=== PATIENT | male | born 1935 | race Caucasian/White ===

== ENCOUNTER 2018-07-19 15:03 | Observation (INO) | payer OTHER ==
[2018-07-19] MEDS ORDERED: ONDANSETRON 4 MG/2 ML VIAL ONE (15:39)
[2018-07-19] MEDS ORDERED: NA CHLORIDE 0.9% 1,000 ML ONE (15:39)
[2018-07-19] MEDS ORDERED: PANTOPRAZOLE 40 MG INJ ONE ×2 (15:39→17:42)
[2018-07-19 15:49] LABS: Absolute Lymphocytes (CBC) 1.3 K/uL (0.7-4.9); Absolute Monocytes 0.7 K/uL (0.1-1.3); Absolute Neutrophil 5.1 K/uL (1.8-8.0); Basophils % 0.4 % (0-1.3); Eosinophils % 0.6 % (0-4.4); Hematocrit 42.2 % (39.6-49.0); Lymphocytes % 18.8 % (15.3-44.8); Monocytes % 9.5 % (3.3-12.3); RBC Red Blood Cell Count 4.72 M/uL (4.33-5.43)
[2018-07-19 16:08] LABS: Protime INR 1.08
--- NOTE | 2018-07-19 16:24 | RAD REPORT ---
EXAM DESCRIPTION: RAD - Chest Single View - 07/19/2018 4:15 pm CLINICAL HISTORY: nausea/vomiting Chest pain. COMPARISON: CHEST SINGLE VIEW dated 03/27/2014; CHEST SINGLE VIEW dated 03/26/2014; CHEST SINGLE VIEW dated 12/27/2012; CHEST SINGLE VIEW dated 11/08/2012 FINDINGS: Portable technique limits examination quality. Mild emphysematous changes are present throughout the lungs. Increased lung markings are seen in the upper lobes bilaterally, likely representing mild interstitial pneumonitis. The heart is normal in si ze. Chronic blunting left costophrenic angle noted.
[2018-07-19 16:39] LABS: ALT/SGPT 15 U/L (12-78); AST/SGOT 17 U/L (15-37); Albumin 3.6 g/dL (3.4-5.0); Alkaline Phosphatase 75 U/L (45-117); BUN Blood Urea Nitrogen 25 mg/dL (7-18); Bicarbonate 39 mmol/L (21-32); Bilirubin Direct 0.3 mg/dL (0-0.2); Bilirubin Total 1.2 mg/dL (0.2-1.0); Glucose Level 113 mg/dL (74-106); Lipase 58 U/L (73-393); Magnesium 2.2 mg/dL (1.8-2.4); Potassium 3.6 mmol/L (3.5-5.1); Protein, Total 7.9 g/dL (6.4-8.2); Sodium Level 139 mmol/L (136-145); Troponin I < 0.02 ng/mL (0.0-0.045)
--- NOTE | 2018-07-19 16:48 | EKG ---
Test Date: 2018-07-19 Test Time: 15:39:11 Marketing Development Manager: ANUSHA MEASUREMENT RESULTS: Intervals: Rate: 63 MO: 164 QRSD: 162 QT: 500 QTc: 511 [place]: P: MO: 164 QRS: -84 T: 55 INTERPRETIVE STATEMENTS: Normal sinus rhythm Right bundle branch block Left anterior fascicular block Bifascicular block Abnormal ECG Compared to ECG 06/10/2013 10:00:02 No significant changes Electronically Signed On 07-19-18 16:48:08 [employer] by Scott Soriano
--- NOTE | 2018-07-19 16:56 | RAD REPORT ---
EXAM DESCRIPTION: CTAbdomen Pelvis W Contrast - 07/19/2018 4:44 pm CLINICAL HISTORY: Abdominal pain. NAUSEA / VOMITING COMPARISON: No comparisons TECHNIQUE: Biphasic CT imaging of the abdomen and pelvis was performed with 100 ml non-ionic IV cont rast. All CT scans are performed using dose optimization technique as appropriate and may include automated exposure control or mA/KV adjustment according to patient size. FINDINGS: Emphysematous changes are present in both lung bases.Postsurgical clips are present a agustin iesha esophageal junction with mild dilatation of the distal esophagus with asymmetric wall thickening noted. Mild distention and mucosal thickening of the stomach and duodenum is seen. The liver, spleen, pancreas, adrenal glands and kidneys are within normal limits. No bowel obstruction, free air, free fluid or abscess. Prominent sigmoid diverticulosis without diver ticulitis. The appendix is not identified as a discrete structure, however, no secondary findings of appendicitis are identified. Moderate stool is retained in the colon. No evidence of significant lym phadenopathy. Right hip arthroplasty noted. Moderate lumbosacral degenerative changes. Mild degenerative anterolist hesis of L4 on 5 seen. IMPRESSION: Postsurgical changes are seen in the gastroesophageal junction with distention of the di stal esophagus and asymmetric wall thickening. Upper endoscopy may be of value not recently performed . Mild gastroenteritis is possible. Prominent retained colonic stool is seen with diverticulosis coli present. No diverticulitis seen.
--- NOTE | 2018-07-19 17:25 | ER ---
Nurse's Notes [facility] Name: Bereket Kennedy Age: 83 yrs Sex: Male : 1935 Arrival Date: 07/19/2018 Time: 15:06 Bed 27 Private MD: Diagnosis: Nausea and vomiting;Dehydration;Gastrointestinal hemorrhage, unspecified Presentation: 07/19 15:09 Presenting complaint: Child states: he had abdominal pains last night after dinner and tw2 he has been vomiting since last night, Dr. Huerta clips some polyps in stomach maybe 8 or 9 years ago. Transition of care: patient was not received from another setting of care. Onset of symptoms was July 19, 2018. Risk Assessment: Do you want to hurt yourself or someone else? Patient reports no desire to harm self or others. Initial Sepsis Screen: Does the patient meet any 2 criteria? No. Patient's initial sepsis screen is negative. Does the patient have a suspected source of infection? No. Patient's initial sepsis screen is negative. Care prior to arrival: None. 15:09 Method Of Arrival: Wheelchair tw2 15:09 Acuity: CARMELINA 3 tw2 15:12 Presenting complaint: Child states: dark brown vomiting , coffee ground dark color and tw2 he has been feeling weak. Triage Assessment: 15:13 General: Appears slender, well groomed, Behavior is calm, cooperative, appropriate for tw2 age. GI: Reports nausea, vomiting, Patient currently denies bloody stool, constipation. Historical: - Allergies: 15:11 No Known Allergies; tw2 - Home Meds: 15:11 None [Active]; tw2 - PSHx: 15:11 esophageal sphincter repair; Joint replacement(2011); Knee surgery; tw2 - Immunization history:: Adult Immunizations. - Social history:: Smoking status: . - Ebola Screening: : Patient denies travel to an Ebola-affected area in the 21 days before illness onset. Screenin:41 Abuse screen: Denies threats or abuse. Denies injuries from another. Nutritional mg2 screening: No deficits noted. Tuberculosis screening: No symptoms or risk factors identified. Fall Risk IV access (20 points). Assessment: 15:40 General: Appears in no apparent distress. comfortable, Behavior is calm, cooperative. mg2 Pain: Complains of pain in abdomen Pain does not radiate. Pain currently is 2 out of 10 on a pain scale. Quality of pain is described as aching, Pain began gradually, Is intermittent. Neuro: Level of Consciousness is awake, alert, obeys commands, Oriented to person, place, time, situation. Cardiovascular: Capillary refill < 3 seconds Patient's skin is warm and dry. Respiratory: Airway is patent Respiratory effort is even, unlabored, Respiratory pattern is regular, symmetrical. GI: with hiccups Bowel sounds present X 4 quads. Abd is soft and non tender. : No signs and/or symptoms were reported regarding the genitourinary system. EENT: No signs and/or symptoms were reported regarding the EENT system. Derm: Skin is intact, is healthy with good turgor, Skin is pink, warm \T\ dry. normal. Musculoskeletal: No signs and/or symptoms reported regarding the musculoskeletal system. 18:00 Reassessment: patient relieved from hiccups. mg2 Vital Signs: 15:09 BP 124 / 86; Pulse 113; Resp 18; Temp 97.6(O); Pulse Ox 98% on R/A; Weight 61.69 kg tw2 (R); Height 5 ft. 9 in. (175.26 cm); Pain 2/10; 16:19 BP 114 / 65; Pulse 60; Resp 18; Pulse Ox 100% on R/A; Pain 0/10; mg2 17:30 BP 128 / 65; Pulse 60; Resp 18; Pulse Ox 100% on R/A; Pain 0/10; mg2 18:23 BP 147 / 65; Pulse 59; Resp 18; Temp 98(O); Pulse Ox 98% on R/A; Pain 0/10; mg2 15:09 Body Mass Index 20.08 (61.69 kg, 175.26 cm) tw2 ED Course: 15:06 Patient arrived in ED. mr 15:11 Triage completed. tw2 15:13 Arm band placed on. tw2 15:15 Sanju Virgen PA is PHCP. cp 15:15 Tigre Richardson MD is Attending Physician. cp 15:19 Vinay Pimentel, ITA is Primary Nurse. mg2 15:42 Patient has correct armband on for positive identification. mg2 15:42 No provider procedures requiring assistance completed. Inserted saline lock: 20 gauge mg2 in right antecubital area, using aseptic technique. Blood collected. 15:45 EKG done, by technical administrative assistant. reviewed by Sanju BASSETT. sm3 16:16 XRAY Chest (1 view) In Process Unspecified. EDMS 16:[address] via stretcher. vm2 16:46 CT Abd/Pelvis - W/Contrast: no oral contrast In Process Unspecified. EDMS 16:52 CT completed. Patient tolerated procedure well. Patient moved back from CT. 2 17:23 Ginny Batista MD is Hospitalizing Provider. cp 19:29 Patient admitted, IV remains in place. mg2 Administered Medications: 15:37 Drug: ProTONIX 40 mg Route: IVP; Site: right antecubital; mg2 16:18 Follow up: Response: No adverse reaction; Marked relief of symptoms mg2 15:37 Drug: Zofran 4 mg Route: IVP; Site: right antecubital; mg2 16:18 Follow up: Response: No adverse reaction; Vomiting decreased mg2 15:38 Drug: NS 0.9% 1000 ml Route: IV; Rate: 75 ml/hr; Site: right antecubital; mg2 19:24 Follow up: Response: No adverse reaction; IV Status: Infusion continued upon admission mg2 17:18 Drug: NS 0.9% 500 ml Route: IV; Rate: bolus; Site: right antecubital; mg2 19:24 Follow up: Response: No adverse reaction; IV Status: Completed infusion mg2 17:37 Drug: ProTONIX 8 mg/hr Route: IV; Rate: 25 ml/hr; Site: right antecubital; mg2 19:23 Follow up: Response: No adverse reaction; IV Status: Infusion continued upon admission mg2 Outcome: 17:24 Decision to Hospitalize by Provider. cp 19:29 Admitted to Med/surg accompanied by tech, via stretcher, room 215, with chart, Report mg2 called to ITA Cook 19:29 Condition: stable 19:29 Instructed on the need for admit, Demonstrated understanding of instructions. 19:46 Patient left the ED. mg2 Signatures: Dispatcher [employer] EDWY Arminda Brown Sanju Forrest PA PA cp Suad Fry, RN RN tw2 Rose Rios 2 Vinay Pimentel RN RN mg2 Marcia Gomez 3
--- NOTE | 2018-07-19 17:26 | EDPHYS ---
Physician Documentation [facility] Name: Bereket Kennedy Age: 83 yrs Sex: Male : 1935 Arrival Date: 07/19/2018 Time: 15:06 Bed 27 Private MD: ED Physician Tigre Richardson HPI: 07/19 15:22 This 83 yrs old Male presents to ER via Wheelchair with complaints of cp Abdominal Pain, Vomiting. 15:22 The patient presents with abdominal pain in the upper abdomen. Onset: The cp symptoms/episode began/occurred last night. Associated signs and symptoms: Pertinent positives: nausea and vomiting. 15:22 Severity of pain: in the emergency department the pain is unchanged. cp 15:25 Son reports vomitus has appeared "coffee ground". cp Historical: - Allergies: 15:11 No Known Allergies; tw2 - Home Meds: 15:11 None [Active]; tw2 - PSHx: 15:11 esophageal sphincter repair; Joint replacement(2011); Knee surgery; tw2 - Immunization history:: Adult Immunizations. - Social history:: Smoking status: . - Ebola Screening: : Patient denies travel to an Ebola-affected area in the 21 days before illness onset. ROS: 15:26 Eyes: Negative for injury, pain, redness, and discharge. cp 15:26 Constitutional: Positive for poor PO intake, Negative for body aches, chills, fever. 15:26 Cardiovascular: Negative for chest pain, edema, palpitations. cp 15:26 ENT: Negative for drainage from ear(s), ear pain, sore throat, difficulty swallowing, cp difficulty handling secretions. 15:26 Respiratory: Negative for cough, shortness of breath, wheezing. 15:26 Abdomen/GI: Positive for abdominal pain, nausea and vomiting, Negative for diarrhea, constipation, black/tarry stool, rectal bleeding. 15:26 Back: Negative for radiated pain. 15:26 : Negative for urinary symptoms. 15:26 Skin: Negative for cellulitis, rash. 15:26 Neuro: Negative for altered mental status, headache, weakness. 15:26 All other systems are negative. Exam: 15:30 Constitutional: The patient appears in no acute distress, alert, awake, cp non-diaphoretic, non-toxic, well developed, well nourished, uncomfortable. 15:30 Head/Face: Normocephalic, atraumatic. cp 15:30 Eyes: Periorbital structures: appear normal, Conjunctiva: normal, no exudate, no cp injection, Sclera: no appreciated abnormality, Lids and lashes: appear normal, bilaterally. 15:30 ENT: External ear(s): are unremarkable, Nose: is normal, Mouth: Lips: moist, Oral mucosa: moist, Posterior pharynx: is normal, airway is patent, no erythema, no exudate. 15:30 Chest/axilla: Inspection: normal, Palpation: is normal, no crepitus, no tenderness. 15:30 Cardiovascular: Rate: tachycardic, Rhythm: regular, Edema: is not appreciated, JVD: is not appreciated. 15:30 Respiratory: the patient does not display signs of respiratory distress, Respirations: labored breathing, is not present, shallow respirations, that is mild, Breath sounds: are clear throughout, no decreased breath sounds, no stridor, no wheezing. 15:30 Abdomen/GI: Inspection: abdomen appears normal, Bowel sounds: active, all quadrants, Palpation: soft, in all quadrants, moderate abdominal tenderness, in the epigastric area, right upper quadrant and left upper quadrant, rebound tenderness, is not appreciated, voluntary guarding. 15:30 Skin: cellulitis, is not appreciated, no rash present. 15:30 Neuro: Orientation: to person, place \\T\\ time. Mentation: is normal, Cerebellar function: is grossly normal, Motor: moves all fours, strength is normal, Sensation: is normal. 15:45 ECG was reviewed by the Attending Physician. cp Vital Signs: 15:09 BP 124 / 86; Pulse 113; Resp 18; Temp 97.6(O); Pulse Ox 98% on R/A; Weight 61.69 kg tw2 (R); Height 5 ft. 9 in. (175.26 cm); Pain 2/10; 16:19 BP 114 / 65; Pulse 60; Resp 18; Pulse Ox 100% on R/A; Pain 0/10; mg2 17:30 BP 128 / 65; Pulse 60; Resp 18; Pulse Ox 100% on R/A; Pain 0/10; mg2 18:23 BP 147 / 65; Pulse 59; Resp 18; Temp 98(O); Pulse Ox 98% on R/A; Pain 0/10; mg2 15:09 Body Mass Index 20.08 (61.69 kg, 175.26 cm) tw2 MDM: 15:16 Patient medically screened. cp 15:39 Differential diagnosis: acute coronary syndrome, bowel obstruction, cholecystitis, cp Cholelithiasis, diverticulitis, gastritis, gastroesophageal reflux disease, GI Bleed, pancreatitis, Peptic Ulcer Disease, Perf. Duodenal Ulcer, Perf. Gastric Ulcer. 17:05 Data reviewed: vital signs, nurses notes, lab test result(s), EKG, radiologic studies, cp CT scan, ultrasound. 17:05 Test interpretation: by ED physician or midlevel provider: ECG, plain radiologic cp studies. 17:15 Physician consultation: Ginny Batista MD was called at 17:10, was contacted at 17:10, regarding admission, to the telemetry unit. patient's condition. 07/19 15:20 Order name: Basic Metabolic Panel; Complete Time: 16:59 mg2 07/19 16:59 Interpretation: Normal except: CL 95; CO2 39; GLUC 113; BUN 25; GFR 67. cp 07/19 15:20 Order name: CBC with Diff; Complete Time: 16:16 mg2 07/19 15:20 Order name: Creatinine for Radiology; Complete Time: 16:16 mg2 07/19 15:20 Order name: Hepatic Function; Complete Time: 16:59 mg2 07/19 15:20 Order name: Lipase; Complete Time: 16:59 mg2 07/19 15:26 Order name: XRAY Chest (1 view); Complete Time: 16:59 cp 07/19 15:26 Order name: PT-INR; Complete Time: 16:16 cp 07/19 15:26 Order name: Ptt, Activated; Complete Time: 16:16 cp 07/19 16:17 Order name: CT Abd/Pelvis - W/Contrast: no oral contrast; Complete Time: 16:59 cp 07/19 16:23 Order name: Troponin I; Complete Time: 16:59 EDMS 07/19 16:23 Order name: Magnesium; Complete Time: 16:59 EDMS 07/19 15:20 Order name: IV Saline Lock; Complete Time: 15:39 mg2 07/19 15:20 Order name: Labs collected and sent; Complete Time: 15:39 mg2 07/19 15:26 Order name: EKG; Complete Time: 15:27 cp 07/19 15:26 Order name: EKG - Nurse/Tech; Complete Time: 16:18 cp 07/19 15:57 Order name: Labs - recollect needed: basic; Complete Time: 16:18 iw EC:45 Rate is 63 beats/min. Rhythm is regular. MA interval is normal. QRS interval is cp prolonged at 162 msec. QT interval is prolonged. Interpreted by me. Reviewed by me. Administered Medications: 15:37 Drug: ProTONIX 40 mg Route: IVP; Site: right antecubital; mg2 16:18 Follow up: Response: No adverse reaction; Marked relief of symptoms mg2 15:37 Drug: Zofran 4 mg Route: IVP; Site: right antecubital; mg2 16:18 Follow up: Response: No adverse reaction; Vomiting decreased mg2 15:38 Drug: NS 0.9% 1000 ml Route: IV; Rate: 75 ml/hr; Site: right antecubital; mg2 19:24 Follow up: Response: No adverse reaction; IV Status: Infusion continued upon admission mg2 17:18 Drug: NS 0.9% 500 ml Route: IV; Rate: bolus; Site: right antecubital; mg2 19:24 Follow up: Response: No adverse reaction; IV Status: Completed infusion mg2 17:37 Drug: ProTONIX 8 mg/hr Route: IV; Rate: 25 ml/hr; Site: right antecubital; mg2 19:23 Follow up: Response: No adverse reaction; IV Status: Infusion continued upon admission mg2 Disposition: 07/19/18 17:24 Hospitalization ordered by Ginny Batista for Observation. Preliminary diagnosis are Nausea and vomiting, Dehydration, Gastrointestinal hemorrhage, unspecified. - Bed requested for Telemetry/MedSurg (observation). - Status is Observation. mg2 - Condition is Stable. - Problem is new. - Symptoms have improved. UTI on Admission? No Addendum: 07/26/2018 08:55 Co-signature as Attending Physician, Tigre Richardson MD I agree with the assessment and k dr plan of care. Signatures: Dispatcher [employer] EDWA Tigre Richardson MD MD [facility] Susan Abarca RN RN iw Sanju Virgen, DANYELLE PA cp Suad Fry RN RN tw2 Ann Galicia Michele, RN RN mg2 Corrections: (The following items were deleted from the chart) 07/19 16:23 15:26 MAGNESIUM+C.LAB.BRZ ordered. EDMS EDMS 16:23 15:26 TROPONIN I+C.LAB.BRZ ordered. EDWA EDMS 18:17 17:24 Hospitalization Ordered by Ginny Batista MD for Observation. Preliminary diagnosis eb is Nausea and vomiting; Dehydration; Gastrointestinal hemorrhage, unspecified. Bed requested for Telemetry/MedSurg (observation). Status is Observation. Condition is Stable. Problem is new. Symptoms have improved. UTI on Admission? No. cp 19:46 18:17 07/19/2018 17:24 Hospitalization Ordered by Ginny Batista MD for Observation. mg2 Preliminary diagnosis is Nausea and vomiting; Dehydration; Gastrointestinal hemorrhage, unspecified. Bed requested for Telemetry/MedSurg (observation). Status is Observation. Condition is Stable. Problem is new. Symptoms have improved. UTI on Admission? No. eb
[2018-07-19] MEDS ORDERED: NA CHLORIDE 0.9% 250 ML ONE (17:42)
[2018-07-19] MEDS ORDERED: ACETAMINOPHEN 500 MG TAB PO PRN (19:42)
[2018-07-19] MEDS: PANTOPRAZOLE INJ 80 MG in NA CHLORIDE 0.9% 250 ML IV SCH (19:42)
[2018-07-19] MEDS ORDERED: NA CHLORIDE 0.9% 250 ML IV SCH (19:42)
[2018-07-19 20:05] LABS: Hematocrit 38.7 % (39.6-49.0)
[2018-07-19] MEDS: HYDROCORTISONE 1 % CREAM 30GM TOP SCH (21:00)
[2018-07-19] MEDS: D5 0.45 NS 1,000 ML IV SCH (22:07)
[2018-07-19 23:33] VITALS: BMI 19.6
[2018-07-20 00:30] LABS: Hematocrit 36.6 % (39.6-49.0)
[2018-07-20] MEDS ORDERED: MORPHINE 4 MG/ML SYR IV ONE (03:52)
[2018-07-20] MEDS: ONDANSETRON 4 MG/2 ML VIAL IV PRN ×3 (03:56→17:21)
[2018-07-20] MEDS: D5 0.45 NS 1,000 ML IV SCH ×3 (03:56→21:09)
[2018-07-20] MEDS ORDERED: PROMETHAZINE 25 MG/ML VIAL IV ONE (04:19)
[2018-07-20] MEDS: PANTOPRAZOLE INJ 80 MG in NA CHLORIDE 0.9% 250 ML IV SCH ×2 (04:27→15:29)
--- NOTE | 2018-07-20 04:32 | HP ---
Date of Admission: 07/19/2018 Chief Complaint: Nausea, vomiting, and coffee-ground emesis. Code status: Full Emergency Medicine: Corey Monroe M.D. with GI. History Of Present Illness: The patient is an 83-year-old male with a past medical history of gastroesophageal reflux disease, benign prostatic hyperplasia , who was in his usual state of health until the day prior to admission when the patient had sudden onset of nausea and vomiting. The patient had multiple episodes and did have some coffee-ground emesis as well. The patient denies any unusual foods. No travel outside the country. No recent antibiotic use. The patient denies any diarrhea, fever, or chills. The patient does have a history of achalasia and has had esophageal sphincter repair previously and does have episodes of nausea and vomiting from time to time. The patient's symptoms were constant, moderate, and progressively worsening. Therefore, he came in for further evaluation. In the ER, his workup showed normal WBC count. His CT scan of the abdomen and pelvis did show some mild gastroenteritis. The patient was started on PPI drip. His hemoglobin was stable at 14.3. The patient was then referred for admission. When seen in the ER, he was awake, alert, oriented, and in some mild distress. Past Medical History: 1. Gastroesophageal reflux disease. 2. Benign prostatic hyperplasia. Past Surgical History: 1. Camilo fundoplication. 2. Knee surgery. 3. Pneumothorax in 2012, which required a thoracotomy. Allergies: NO KNOWN DRUG ALLERGIES. Medications: The patient does not take any medications on a daily basis. Social History: Patient quit smoking in the 70s. No alcohol use. The patient is independent in his activities of daily living. He lives next door to his kids. He is , retired. Family History: Father of COPD and emphysema. Mother had heart problems. Review of Systems: An 11-point system reviewed, negative except as per HPI. Physical Examination: Vital Signs: Blood pressure 124/86, pulse 113, respirations 18, temperature 97.6, O2 98% on room air. General: Awake, alert, and oriented x3. Elderly male, somewhat ill-appearing, and frail. HEENT: Normocephalic, atraumatic. PERRLA. EOMI. Dry mucous membranes. Oropharynx is clear. Poor dentition. Conjunctivae anicteric. Neck: Supple. No JVD. Trachea midline. CV: S1, S2. Regular rate and rhythm. Peripheral pulses present. No murmurs. RESPIRATORY: Clear to auscultation bilaterally. No wheezing or stridor. No use of accessory muscles. Gastrointestinal: Abdomen is soft, nondistended. Mild tenderness to palpation. Bowel sounds are positive. No guarding or rigidity. Extremities: No clubbing, cyanosis, or edema. No calf tenderness. Neuro: Cranial nerves 2-12 intact grossly. No focal neurological deficit. Strength is 5/5 in bilateral upper and lower extremities. Sensation intact to light touch. Skin: The patient does have a rash on the dorsal aspect of his feet, not infectious appearing. Psych: Mood is good. Affect is full. Insight and judgment are good. Laboratory Data: WBC 7.1, H and H 14.3 and 42.2, and platelets 308. INR 1.08. Sodium 139, potassium 3.6, chloride 95, CO2 39, BUN 25, creatinine 1.06, glucose 113, calcium 8.9, magnesium 2.2, total bilirubin 1.2, direct bilirubin 0.3, AST 17, ALT 15, troponin less than 0.02, albumin 3.6, and lipase 58. CT scan of the abdomen and pelvis shows postsurgical changes are seen in the gastroesophageal junction with this distention of the distal esophagus and asymmetric wall thickening. Upper endoscopy may be of value, if not recently performed. Mild gastroenteritis is possible. Prominent retained colonic stool was seen with diverticulosis coli present. No diverticulitis seen. EKG shows normal sinus rhythm, rate of 63, right bundle branch block, left anterior fascicular block. The patient has a bifascicular block. Chest x-ray, personally reviewed, shows mild emphysematous changes, changes in the upper lobes bilaterally, likely representing interstitial pneumonitis. Heart, normal in size. Chronic blunting of the left costophrenic angle noted. Assessment And Plan: An 83-year-old male with, 1. Acute gastrointestinal bleed with hematemesis. We will continue with Protonix drip. We will monitor hemoglobin and hematocrit type and screen. We will consult SINAI Garcia. The patient is not on any blood thinners. Did have history of previous gastric ulcer. Continue to monitor closely. 2. Pneumonitis likely chemical pneumonitis related to aspirating part of his vomitus seen on x-ray, symptomatic treatment. 3. Rash, will apply hydrocortisone cream, unclear etiology. 4. Hyperbilirubinemia. 5. Bifasicular block Plan: Admit patient to Med-Surg. Place as observation. We will monitor H and H serially and transfuse as needed. GI and DVT prophylaxis addressed. No chemical anticoagulation due to gastrointestinal bleed. We will place on SCDs. Place patient on clear liquids for now. N.p.o. after midnight for possible endoscopy in a.m. STEPHON Voice ID: [id number] MTDD
[2018-07-20] MEDS ORDERED: PANTOPRAZOLE 40 MG INJ ONE (04:33)
[2018-07-20 04:47] LABS: Hematocrit 39.3 % (39.6-49.0)
[2018-07-20 04:57] LABS: Potassium 3.2 mmol/L (3.5-5.1)
[2018-07-20] MEDS ORDERED: INFLUENZA VACCINE (for 3y+) 0.5 ML DOSE IMVAC ONE (08:00)
[2018-07-20] MEDS ORDERED: PNEUMOCOCCAL VACCINE 0.5 ML IMVAC ONE (08:00)
[2018-07-20] MEDS: HYDROCORTISONE 1 % CREAM 30GM TOP SCH ×3 (08:26→21:14)
[2018-07-20] MEDS: KCL 20 MEQ/100 mL IVPB 20 MEQ/100 ML BAG IV SCH ×2 (09:44→11:59)
--- NOTE | 2018-07-20 12:11 | PN ---
Date of Progress Note: 07/20/2018 Subjective: The patient is seen and examined. Chart reviewed and case discussed with RN. The patie nt did have another episode of vomiting last night. Hemoglobin dropped slightly. Does report some p ain in his abdomen. Medications: List reviewed. Physical Examination: Vital Signs: Temperature 98, heart rate 46, blood pressure 159/64, respirations 18, and O2 of 100% o n room air. General: Awake, alert, and oriented x3, elderly male, ill-appearing, frail, cachectic, BMI 19. CV: S1 and S2. Sinus bradycardia. No murmurs. Peripheral pulses present. Respiratory: Moving air well bilaterally. No wheezing or stridor. Gastrointestinal: Abdomen is soft. Mild tenderness to palpation. No distention. Positive bowel so unds. Extremities: No clubbing, cyanosis, or edema. Neurologic: Nonfocal. Laboratory Data: Sodium 139, potassium 3.2, chloride 97, CO2 of 34, BUN 25, creatinine 1.02, glucose 101, and calcium 8.6. Hemoglobin 12.9, 12.4 and then 13.1. Assessment And Plan: An 83-year-old male with, 1.Acute gastrointestinal bleed with hematemesis. We will continue Protonix drip. Hemoglobin droppe d by 1 g. We will continue to monitor. Transfuse as needed. GI, Dr. Monroe has been consulted. We will check gastric occult. If the patient has any further emesis, the patient will likely benefit f rom EGD. 2.Pneumonitis, likely chemical pneumonitis related to aspiration. Continue symptomatic treatment. 3.Hyperbilirubinemia. 4.Rash on the feet. Continue with topical hydrocortisone cream. 5.Hypokalemia. We will replace and monitor. 6.Anemia, likely secondary to blood loss. 7.Failure to thrive. BMI 19. PLAN: Anticipate EGD. Monitor H and H, transfuse as needed. SA/MODL Voice ID: [id number] Report ID: [id number]
[2018-07-20] MEDS ORDERED: KCL 20 MEQ/100 mL IVPB 20 MEQ/100 ML BAG IV SCH (23:45)
[2018-07-21] MEDS: PANTOPRAZOLE INJ 80 MG in NA CHLORIDE 0.9% 250 ML IV SCH ×2 (00:26→11:13)
[2018-07-21] MEDS: D5 0.45 NS 1,000 ML IV SCH ×2 (05:13→11:42)
[2018-07-21 06:38] LABS: BUN Blood Urea Nitrogen 14 mg/dL (7-18); Bicarbonate 34 mmol/L (21-32); Glucose Level 93 mg/dL (74-106); Potassium 4.4 mmol/L (3.5-5.1); Sodium Level 141 mmol/L (136-145)
[2018-07-21] MEDS: HYDROCORTISONE 1 % CREAM 30GM TOP SCH ×2 (09:06→14:00)
[2018-07-21 12:22] LABS: Hematocrit 34.7 % (39.6-49.0)
[2018-07-21] MEDS ORDERED: Ringers Lactate 1,000 ML IV ONE (13:30)
[2018-07-21] MEDS ORDERED: LIDOCAINE 1% MPF 5 ML VIAL ONE (13:48)
[2018-07-21] MEDS ORDERED: PROPOFOL 200 MG/20 ML VIAL IV ONE (13:48)
[2018-07-21] MEDS ORDERED: GLYCOPYRROLATE 0.2 MG/ML SYR ONE ×2 (13:55→14:20)
[2018-07-21 14:14] VITALS: O2SAT 100
[2018-07-21] MEDS: ONDANSETRON 4 MG/2 ML VIAL IV PRN (17:45)
[2018-07-21 17:51] VITALS: TEMP 98.7
[2018-07-21] MEDS ORDERED: HYDRALAZINE HCL 20 MG/ML VIAL IV ONE (18:12)
[2018-07-21 19:31] VITALS: BP 138/62
--- NOTE | 2018-07-22 04:56 | DS ---
Date of Discharge: 07/21/2018 Procedures: On 07/21/2018, EGD. Postoperative Diagnoses: Esophagitis, mild gastritis of the body of the stomach. Admitting Diagnoses: 1.Acute gastrointestinal bleed with hematemesis. 2.Pneumonitis. 3.Rash. 4.Hyperbilirubinemia. 5.Bifascicular block. Discharge Diagnoses: 1.Acute gastrointestinal bleed due to hematemesis. 2.Acute blood loss anemia. 3.Pneumonitis, chemical. 4.Hyperbilirubinemia. 5.Rash, resolved. 6.Hypokalemia, replace. 7.Bifascicular block. 8.Failure to thrive, BMI 19. 9.Achalasia. 10.Esophagitis. 11.Mild gastritis. Hospital Course: The patient is an 83-year-old male who comes in with coffee-ground emesis. The pat ient was not on any blood thinners. He was admitted to the hospital for further evaluation. CT scan of the abdomen and pelvis showed some mild gastroenteritis. He was started on PPI drip. His hemogl obin initially was 14, did drop to 11. He did not require any transfusion. The patient does have hi story of achalasia with previous esophageal sphincter surgery with complications. The patient was se en by Dr. Monroe, who performed an EGD, which found esophagitis and some mild gastritis. The patient did have some food boluses stuck over the ledge around the site of the previous surgery. The patien t unfortunately is not a surgical candidate; however, may benefit from advanced endoscopic procedure in the [facility] area for revision. The patient was otherwise able to tolerate his diet. He is doing well. He did have some incidental pneumonitis secondary to aspirating part of the vomit us. No significant symptoms. Also reported a rash on his foot, which was treated with topical hydro cortisone cream. Overall, the patient did well. His vital signs remained stable. He did not requir e any blood transfusion. He did have some hypokalemia, which was corrected. The patient was then cl eared for discharge and was sent home in a stable condition. Activity: As tolerated. Medications: As per medication reconciliation list. Followup: Follow up with PCP in 2-3 days. Follow up with GI, Dr. Monroe in 2 weeks. Return to ER f or worsening condition. Physical Examination: General: Awake, alert, oriented, no acute distress. Elderly male, frail. CV: S1, S2. No murmurs. Regular rate and rhythm. Gastrointestinal: Abdomen is soft, nontender, nondistended. Positive bowel sounds. Extremities: No clubbing, cyanosis, or edema. Neurologic: Nonfocal. SA/MODL Voice ID: [id number] Report ID: [id number]
== END 2018-07-21 20:05 | disposition home or self-care (01) ==
LOC: ER 15:03 → ERHOLD 17:26 → 2ND 19:30
PROVIDERS: ADMIT Family Medicine; ATTEND Family Medicine
PROC: 0DB68ZX Excision of Stomach, Via Natural or Artificial Opening Endoscopic, Diagnostic (ICD-10-PCS; principal; 2018-07-21 13:30)
DX: K92.0 Hematemesis (principal); D62 Acute posthemorrhagic anemia; J68.0 Bronchitis and pneumonitis due to chemicals, gases, fumes and vapors; R21 Rash and other nonspecific skin eruption; E80.6 Other disorders of bilirubin metabolism; I45.2 Bifascicular block; N40.0 Benign prostatic hyperplasia without lower urinary tract symptoms; E87.6 Hypokalemia; R62.7 Adult failure to thrive; Z68.1 Body mass index [BMI] 19.9 or less, adult; K22.0 Achalasia of cardia; K20.9 Esophagitis, unspecified; K29.70 Gastritis, unspecified, without bleeding
CPT/HCPCS: 36415 ×2; 43239; 71045; 74177; 80048 ×3; 80076; 82271; 83690; 83735; 83986; 84132; 84484; 85014 ×4; 85018 ×4; 85025; 85610; 85730; 86850; 86900; 86901; 88305; 88312; 93005; 94760 ×4; 96361; 96365; 96366; 96375; 99285; C9113 ×4; G0378 ×2; J0360; J2405 ×5; J2550; J2704; J7030; Q9967

== ENCOUNTER 2023-05-31 05:19 | Observation (INO) | payer MEDICARE, OTHER ==
[2023-05-31] MEDS ORDERED: ONDANSETRON 4 MG/2 ML VIAL ONE ×2 (06:16→09:40)
[2023-05-31] MEDS ORDERED: NA CHLORIDE 0.9% 1,000 ML ONE ×2 (06:51→18:50)
[2023-05-31] MEDS ORDERED: MORPHINE 2 MG/ML SYR ONE (06:51)
[2023-05-31 06:52] LABS: Absolute Lymphocytes (CBC) 1.2 K/uL (0.7-4.9); Hematocrit 34.6 % (39.6-49.0); Lymphocytes % 28.2 % (15.3-44.8); MCV 93.3 fL (80-100); MPV 7.4 fL (7.6-11.3); Platelets 252 thou/uL (152-406); RBC Red Blood Cell Count 3.71 M/uL (4.33-5.43)
[2023-05-31] MEDS ORDERED: NA CHLORIDE 0.9% 500 ML ONE (06:52)
[2023-05-31 07:10] LABS: Albumin 2.8 g/dL (3.4-5.0); Bilirubin Total 0.5 mg/dL (0.2-1.0); C-Reactive Protein 3.1 mg/L (<3.00); Potassium 3.8 mEq/L (3.5-5.1); Protein, Total 7.5 g/dL (6.4-8.2); Troponin High Sensitivity 14.7 pg/mL (<58.9)
--- NOTE | 2023-05-31 07:56 | RAD REPORT ---
EXAM DESCRIPTION: CT - Chest Abdomen Pelvis W Cont - 05/31/2023 7:20 am CLINICAL HISTORY: CHEST PAIN, abdominal cramping nondistention COMPARISON: Abdomen Pelvis W Contrast dated 10/06/2022; Multiplanar Reconstruction dated 08/31/2018; Abdomen Pelvis W/Wo Contrast dated 08/31/2018; Chest Single View dated 07/19/2018; THORAX WO CONTRAST dated 12/27/2012 TECHNIQUE: Thin axial CT images of the chest, abdomen, and pelvis, performed following intravenous a dministration of 100mL Isovue-300. Multiplanar reformats were generated and reviewed. All CT scans are performed using dose optimization technique as appropriate and may include automated exposure control or mA/KV adjustment according to patient size. FINDINGS: Subpleural, apical predominant, reticular and nodular opacities are seen bilaterally, with mild ground-glass opacities and limited traction bronchiectasis noted in the left apex only. Mild burton bpleural non emphysematous cysts, without significant honeycombing otherwise. On the blue leather sorter image, the pattern is stable or perhaps mildly progressive compared to the 2019 chest radiograph, although the pattern is new in comparison to a prior chest CT of 2012. Patulous appearance of the esophagus with a ir-fluid level. No suspicious lung nodules.No pleural or pericardial effusion. Upper limit of normal caliber of the ascending thoracic aorta, measuring 4 cm. Sequelae of prior medi an sternotomy, and probable CABG.No intrathoracic adenopathy. The liver, spleen, pancreas, adrenal glands and kidneys are within normal limits. No bowel obstruction, free air, free fluid or abscess. Mild fluid filling within nondistended lower a bdominal small bowel, nonspecific. No bowel wall thickening. Trace free of situs, predominantly subhe patic. Colonic diverticulosis. 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 No pathologic lymphadenopathy in the abdo men or pelvis. No worrisome osseous finding. Healing/healed rib fractures. Grade 1 spondylolisthesis at L3-4, stable . Right hip arthroplasty in place resulting in streak artifact limiting evaluation of the pelvic stru ctures. Some prostatic calcifications are noted. IMPRESSION: Subpleural fibrotic interstitial lung abnormalities, new or significantly progressed sin ce the 2013 CT, although on the blue leather sorter images, the pattern may be stable or mildly progressed compared to the 2019 chest radiograph. Mild degree of traction bronchiectasis in the left apex. No appreciabl e honeycombing. Please correlate for presence of clinical signs/ symptoms of connective tissue diseas e, and consider pulmonology referral if not already obtained. Nonspecific fluid filling within nondistended lower abdominal small bowel. Mild predominantly subhepa tic ascites. Findings may relate to infectious/inflammatory enteritis. Other chronic findings as above.
--- NOTE | 2023-05-31 09:22 | EDPHYS ---
Physician Documentation [facility] Name: Bereket Kennedy Age: 88 yrs Sex: Male : 1935 Arrival Date: 05/31/2023 Time: 05:19 Bed 6 Private MD: ED Physician Mikey Thomas HPI: 05/31 05:28 This 88 yrs old Male presents to ER via Unassigned with complaints of sp4 Abdominal Pain. 06:13 88-year-old male presents with moderate upper abdominal pain starting yesterday sp4 afternoon associated with nausea. Patient has history of bowel obstruction. Historical: - Allergies: 06:27 No Known Allergies; ha1 - PMHx: 06:27 Hypertensive disorder; Myocardial infarction; ha1 - PSHx: 06:27 cardiac bypass; esophageal sx; ha1 - Immunization history:: Adult Immunizations not up to date. - Social history:: Smoking status: Patient/guardian denies using tobacco, the patient reports quitting approximately 1970 years ago. - Family history:: not pertinent. ROS: 06:13 Constitutional: Negative for fever, chills, and weight loss, positive upper abdominal sp4 pain positive nausea 06:13 All other systems are negative, Exam: 06:13 Constitutional: This is a well developed, well nourished patient who is awake, alert, sp4 and in no acute distress. Head/Face: Normocephalic, atraumatic. Eyes: Pupils equal round and reactive to light, extra-ocular motions intact. Lids and lashes normal. Conjunctiva and sclera are not injected. Cornea within normal limits. Periorbital areas with no swelling, redness, or edema. ENT: Nares patent. No nasal discharge, no septal abnormalities noted. Tympanic membranes are normal and external auditory canals are clear. Oropharynx with no redness, swelling, or masses, exudates, or evidence of obstruction, uvula midline. Mucous membranes moist. Neck: Trachea midline, no thyromegaly or masses palpated, and no cervical lymphadenopathy. Supple, full range of motion without nuchal rigidity, or vertebral point tenderness. Chest/axilla: Normal chest wall appearance and motion. Nontender with no deformity. No lesions are appreciated. Cardiovascular: Regular rate and rhythm with a normal S1 and S2. No gallops, murmurs, or rubs. Normal PMI, no JVD. No pulse deficits. Respiratory: Lungs have equal breath sounds bilaterally, clear to auscultation and percussion. No rales, rhonchi or wheezes noted. No increased work of breathing, no retractions or nasal flaring. Abdomen/GI: Soft, non-tender, with normal bowel sounds. No distension or tympany. No guarding or rebound. No evidence of tenderness throughout. Back: No spinal tenderness. No costovertebral tenderness. Skin: Warm, dry with normal turgor. Normal color with no rashes, no lesions, and no evidence of cellulitis. MS/ Extremity: Pulses equal, no cyanosis. Neurovascular intact. Full, normal range of motion. Neuro: Awake and alert, GCS 15, oriented to person, place, time, and situation. Cranial nerves II-XII grossly intact. Motor strength 5/5 in all extremities. Sensory grossly intact. Psych: Awake, alert, with orientation to person, place and time. Behavior, mood, and affect are within normal limits 07:02 ECG was reviewed by the Attending Physician. EKG revealed sinus bradycardia at the rate sp4 of 50 at 0:68 Vital Signs: 05:56 BP 179 / 72; Pulse 52; Resp 18 S; Temp 98.1; Pulse Ox 100% on R/A; Weight 57.61 kg; ha1 Height 5 ft. 9 in. ; 06:50 BP 156 / 82; Pulse 49; Resp 18 S; Pulse Ox 100% on R/A; rs5 09:30 BP 128 / 85; Pulse 53; Resp 17; Pulse Ox 99% on R/A; rs5 12:00 BP 130 / 82; Pulse 55; Resp 18; Pulse Ox 99% on R/A; rs5 05:56 Body Mass Index 18.75 (57.61 kg, 175.26 cm) ha1 [place] Coma Score: 07:02 Eye Response: spontaneous(4). Motor Response: obeys commands(6). Verbal Response: sp4 oriented(5). Total: 15. MDM: 05:32 Patient medically screened. sp4 07:02 Data reviewed: vital signs, nurses notes, old medical records, lab test result(s), EKG, sp4 radiologic studies. Consideration of Admission/Observation Escalation of care including admission/observation considered. Transition of care: After a detail discussion of the patient's case, care is transferred to Mikey Thomas MD. 09:20 Differential Diagnosis Enteritis, colitis, volvulus, small bowel obstruction. rn Counseling: I had a detailed discussion with the patient and/or guardian regarding the historical points, exam findings, and any diagnostic results supporting the discharge/admit diagnosis, lab results, radiology results, the need for further work-up and treatment in the hospital. Response to treatment: There is no appreciated change of the patient's symptoms at this time, and as a result, I will admit patient. ED course: Patient with persistent pain and nausea. CT shows more of an enteritis, no evidence of obstruction or volvulus at this time. Patient and daughter are concerned about going home and level of pain. Will observe to hospitalist service for further care and observation to make sure that this is not an early volvulus or obstruction. Patient does not have the vomiting I would expect with his possible enteritis and CT shows small bowel thickening and fluid.. 05/31 05:30 Order name: Urinalysis w/ reflexes sp4 05/31 06:12 Order name: Urinalysis W/Microscopic sp4 05/31 06:47 Order name: Comprehensive Metabolic Panel; Complete Time: 08:06 EDMS 05/31 06:47 Order name: Troponin High Sensitivity; Complete Time: 08:06 EDMS 05/31 06:47 Order name: C-Reactive Protein; Complete Time: 08:06 EDMS 05/31 06:47 Order name: Lipase; Complete Time: 08:06 EDMS 05/31 06:47 Order name: CBC with Automated Diff; Complete Time: 08:06 EDMS 05/31 06:48 Order name: COVID-19 SARS RT PCR; Complete Time: 08:06 vc1 05/31 06:48 Order name: Flu; Complete Time: 08:06 vc1 05/31 09:22 Order name: Lactate w/ 2H reflex if indic.; Complete Time: 11:06 rn 05/31 21:07 Order name: Troponin High Sensitivity EDMS 06/01 05:23 Order name: Lactate w/ 2H reflex if indic. EDMS 06/01 05:29 Order name: Comprehensive Metabolic Panel EDMS 06/01 05:29 Order name: Troponin High Sensitivity EDMS 06/01 05:29 Order name: Lipase EDMS 12/07 05:32 Order name: CBC with Automated Diff EDMS 05/31 06:11 Order name: CT Chest, Abdomen, Pelvis - W/Contrast; Complete Time: 08:06 sp4 05/31 06:06 Order name: EKG; Complete Time: 06:56 sp4 05/31 11:39 Order name: CONS Physician Consult EDIN 05/31 05:30 Order name: IV Saline Lock; Complete Time: 06:20 sp4 05/31 05:30 Order name: Labs collected and sent; Complete Time: 06:20 sp4 05/31 06:06 Order name: EKG - Nurse/Tech; Complete Time: 06:45 sp4 EC:02 Rate is 50 beats/min. Rhythm is regular, Sinus bradycardia. QRS [place] is Normal. NC sp4 interval is normal. QRS interval is prolonged. QT interval is normal. No Q waves. T waves are Normal. No ST changes noted. Clinical impression: No evidence of ischemia. Interpreted by me. Reviewed by me. Administered Medications: 06:20 Drug: Ondansetron IVP 4 mg IVP once; over 2 minutes Route: IVP; Site: right antecubital;[facility] 06:44 Drug: NS 0.9% IV 1000 ml IV at 75 ml/hr continuous Route: IV; Rate: 75 ml/hr; Site: ha1 right antecubital; 07:10 Follow up: Response: No adverse reaction rs5 06:45 Drug: morphine IVP or IV 2 mg IVP once over 4 mins Route: IVP; Infused Over: 4 mins; ha1 Site: right antecubital; 07:10 Follow up: Response: No adverse reaction; Pain is decreased rs5 06:45 Drug: NS 0.9% IV 500 ml IV at bolus once Route: IV; Rate: bolus; Site: right ha1 antecubital; 07:10 Follow up: Response: No adverse reaction rs5 09:25 Drug: morphine IVP or IV 4 mg IVP once over 4 mins Route: IVP; Infused Over: 4 mins; rs5 Site: right antecubital; 09:50 Follow up: Response: No adverse reaction; Pain is decreased rs5 09:25 Drug: Ondansetron IVP 4 mg IVP once; over 2 minutes Route: IVP; Site: right antecubital;rs5 09:50 Follow up: Response: No adverse reaction rs5 09:25 Drug: Piperacillin-Tazobactam IVPB 3.375 grams IVPB once over 60 mins; (mix in NS 100 rs5 mL) Route: IVPB; Infused Over: 60 mins; Site: right antecubital; 09:50 Follow up: Response: No adverse reaction rs5 Disposition Summary: 05/31/23 09:22 Hospitalization Ordered Notes: Hospitalization Status: Observation rn Provider: Espinoza Thomas rn Condition: Stable rn Problem: new rn Symptoms: are unchanged rn Bed/Room Type: Standard rn Location: [facility] ER HOLD(06/01/23 14:21) em1 Room Assignment: (06/01/23 14:21) em1 Diagnosis - Upper abdominal pain, unspecified rn - Infectious gastroenteritis and colitis, unspecified rn Forms: - Medication Reconciliation Form rn - SBAR form rn - Leadership Thank You Letter rn Signatures: Dispatcher [employer] EDMS Janneth Ponce Kimberly, RN RN kl Nieto, Roman, MD MD rn Martinez, Eric em1 Jocy Winchester RN RN ha1 Nila Castro rv1 Ortiz Adorno RN RN rs5 Dave Patterson MD MD sp4 Corrections: (The following items were deleted from the chart) 07:00 06:47 Chest Abdomen Pelvis W Cont ordered. EDMS EDMS 07:38 06:57 COVID-19/FLU A+B+MOL.LAB.BRZ ordered. EDMS EDMS 07:41 06:56 CBC+H.LAB.BRZ ordered. EDMS EDMS 07:42 06:56 COMPREHENSIVE METABOLIC PANEL+C.LAB.BRZ ordered. EDMS EDMS 07:42 06:56 LIPASE+C.LAB.BRZ ordered. EDMS EDMS 07:44 06:57 Troponin High Sensitivity+C.LAB.BRZ ordered. EDMS EDMS 07:44 06:57 C-REACTIVE PROTEIN+C.LAB.BRZ ordered. EDMS EDMS 10:51 09:46 Lactate w/ 2H reflex if indic. ordered. EDMS EDMS 16:16 09:22 Telemetry/MedSurg (observation) rn bd 16:16 09:22 rn bd 18:27 16:16 [facility] ER HOLD bd bd 18:27 16:16 ERHOLD- bd bd 19:08 18:27 214 bd rv1 19:43 18:27 Telemetry/MedSurg (observation) bd kl 19:43 19:08 rv1 kl 06/01 14:08 1206 19:43 [facility] kl em1 06/01 14:08 12 19:43 ERHOLD- kl em1 06/01 14:21 14:08 Telemetry/MedSurg (observation) em1 em1 14:21 14:08 401 em1 em1
--- NOTE | 2023-05-31 09:22 | ER ---
Nurse's Notes [facility] Name: Bereket Kennedy Age: 88 yrs Sex: Male : 1935 Arrival Date: 05/31/2023 Time: 05:19 Bed 6 Private MD: Diagnosis: Upper abdominal pain, unspecified;Infectious gastroenteritis and colitis, unspecified Presentation: 05/31 05:56 Chief complaint: Patient states: I been having abdominal cramping since yesterday it ha1 feels like a bowel obstruction. I had a bowel obstruction in September and I feel the same way. Coronavirus screen: Vaccine status: Patient reports being unvaccinated. Ebola Screen: No symptoms or risks identified at this time. 05:56 Method Of Arrival: Wheelchair ha1 05:56 Initial Sepsis Screen: Does the patient meet any 2 criteria? No. Patient's initial ha1 sepsis screen is negative. Does the patient have a suspected source of infection? No. Patient's initial sepsis screen is negative. Risk Assessment: Do you want to hurt yourself or someone else? Patient reports no desire to harm self or others. Onset of symptoms was May 31, 2023. 05:56 Acuity: CARMELINA 3 ha1 Triage Assessment: 05:56 General: Appears uncomfortable, Behavior is cooperative. Pain: Complains of pain in ha1 epigastric area Pain does not radiate. Pain currently is 7 out of 10 on a pain scale. Quality of pain is described as crampy, throbbing, Pain began 1 day ago. Neuro: Level of Consciousness is awake, alert, obeys commands, Oriented to person, place, time, situation. Cardiovascular: Capillary refill < 3 seconds Patient's skin is warm and dry. Respiratory: Airway is patent Respiratory effort is even, unlabored, Respiratory pattern is regular, symmetrical. GI: Abdomen is flat, non-distended, Bowel sounds present X 4 quads. Abd is soft X 4 quads Reports upper abdominal pain, cramping. Derm: Skin is pink, warm \T\ dry. Musculoskeletal: Circulation, motion, and sensation intact. Historical: - Allergies: 06:27 No Known Allergies; ha1 - PMHx: 06:27 Hypertensive disorder; Myocardial infarction; ha1 - PSHx: 06:27 cardiac bypass; esophageal sx; ha1 - Immunization history:: Adult Immunizations not up to date. - Social history:: Smoking status: Patient/guardian denies using tobacco, the patient reports quitting approximately 1970 years ago. - Family history:: not pertinent. Screenin:56 Abuse screen: Denies threats or abuse. Nutritional screening: No deficits noted. ha1 Tuberculosis screening: No symptoms or risk factors identified. 07:10 [facility] ED Fall Risk Assessment (Adult) History of falling in the last 3 months, rs5 including since admission No falls in past 3 months (0 pts) Confusion or Disorientation No (0 pts) Intoxicated or Sedated No (0 pts) Impaired Gait No (0 pts) Mobility Assist Device Used No (0 pt) Altered Elimination No (0 pt) Score/Fall Risk Level 0 - 2 = Low Risk Oriented to surroundings, Maintained a safe environment. Assessment: 06:50 Reassessment: Patient and/or family updated on plan of care and expected duration. Pain ha1 level reassessed. Patient is alert, oriented x 3, equal unlabored respirations, skin warm/dry/pink. 07:05 General: Appears in no apparent distress. comfortable, Behavior is calm, cooperative. rs5 Pain: Denies pain. Neuro: Level of Consciousness is awake, alert, obeys commands, Oriented to person, place, time, situation. Cardiovascular: Heart tones S1 S2 present Rhythm is regular. Respiratory: Airway is patent Respiratory effort is even, unlabored, Respiratory pattern is regular, symmetrical, Breath sounds are clear bilaterally. GI: Abdomen is round non-distended, Bowel sounds present X 4 quads. Abd is soft and non tender X 4 quads. GI: Patient currently denies nausea, pain, vomiting. : No signs and/or symptoms were reported regarding the genitourinary system. EENT: No signs and/or symptoms were reported regarding the EENT system. Derm: Skin is intact, Skin is pink, warm \T\ dry. Musculoskeletal: Range of motion: intact in all extremities. 08:10 Reassessment: No changes from previously documented assessment. rs5 09:15 Reassessment: Patient and/or family updated on plan of care and expected duration. Pain rs5 level reassessed. Patient is alert, oriented x 3, equal unlabored respirations, skin warm/dry/pink. Provider notified pt is reexperiencing pain. Pain: Complains of pain in abdomen generalized Pain does not radiate. Pain currently is 7 out of 10 on a pain scale. Quality of pain is described as aching, Pain began gradually, Is continuous. 09:15 GI: Patient currently denies nausea. rs5 09:56 Reassessment: Patient denies pain at this time. Patient states feeling better. Patient rs5 states symptoms have improved. 12:00 Reassessment: Patient and/or family updated on plan of care and expected duration. Pain rs5 level reassessed. Patient is alert, oriented x 3, equal unlabored respirations, skin warm/dry/pink. Vital Signs: 05:56 BP 179 / 72; Pulse 52; Resp 18 S; Temp 98.1; Pulse Ox 100% on R/A; Weight 57.61 kg; ha1 Height 5 ft. 9 in. ; 06:50 BP 156 / 82; Pulse 49; Resp 18 S; Pulse Ox 100% on R/A; rs5 09:30 BP 128 / 85; Pulse 53; Resp 17; Pulse Ox 99% on R/A; rs5 12:00 BP 130 / 82; Pulse 55; Resp 18; Pulse Ox 99% on R/A; rs5 05:56 Body Mass Index 18.75 (57.61 kg, 175.26 cm) ha1 [place] Coma Score: 07:02 Eye Response: spontaneous(4). Motor Response: obeys commands(6). Verbal Response: sp4 oriented(5). Total: 15. ED Course: 05:24 Patient arrived in ED. ag3 05:28 Dave Patterson MD is Attending Physician. sp4 05:56 Patient has correct armband on for positive identification. Placed in gown. Bed in low ha1 position. Call light in reach. Side rails up X 1. 06:15 Inserted saline lock: 22 gauge in right antecubital area, using aseptic technique. ha1 Blood collected. 06:27 Triage completed. ha1 06:50 Jocy Winchester RN is Primary Nurse. ha1 07:01 Attending Physician role handed off by Dave Patterson MD rn 07:01 Mikey Thomas MD is Attending Physician. rn 07:21 CT Chest, Abdomen, Pelvis - W/Contrast In Process Unspecified. EDMS 09:21 Espinoza Thomas MD is Hospitalizing Provider. rn 10:14 No provider procedures requiring assistance completed. Patient admitted, IV remains in rs5 place. Administered Medications: 06:20 Drug: Ondansetron IVP 4 mg IVP once; over 2 minutes Route: IVP; Site: right antecubital;ha1 06:44 Drug: NS 0.9% IV 1000 ml IV at 75 ml/hr continuous Route: IV; Rate: 75 ml/hr; Site: ha1 right antecubital; 07:10 Follow up: Response: No adverse reaction rs5 06:45 Drug: morphine IVP or IV 2 mg IVP once over 4 mins Route: IVP; Infused Over: 4 mins; ha1 Site: right antecubital; 07:10 Follow up: Response: No adverse reaction; Pain is decreased rs5 06:45 Drug: NS 0.9% IV 500 ml IV at bolus once Route: IV; Rate: bolus; Site: right ha1 antecubital; 07:10 Follow up: Response: No adverse reaction rs5 09:25 Drug: morphine IVP or IV 4 mg IVP once over 4 mins Route: IVP; Infused Over: 4 mins; rs5 Site: right antecubital; 09:50 Follow up: Response: No adverse reaction; Pain is decreased rs5 09:25 Drug: Ondansetron IVP 4 mg IVP once; over 2 minutes Route: IVP; Site: right antecubital;rs5 09:50 Follow up: Response: No adverse reaction rs5 09:25 Drug: Piperacillin-Tazobactam IVPB 3.375 grams IVPB once over 60 mins; (mix in NS 100 rs5 mL) Route: IVPB; Infused Over: 60 mins; Site: right antecubital; 09:50 Follow up: Response: No adverse reaction rs5 Medication: 06:30 VIS not applicable for this client. ha1 Outcome: 09:22 Decision to Hospitalize by Provider. rn 10:14 Admitted to ER Hold. Please see [facility] for further documentation. rs5 10:14 Condition: stable 10:14 Instructed on the need for admit, 06/01 14:45 Patient left the ED. mb9 Signatures: Dispatcher [employer] EDMS Mikey Thomas MD MD rn Gomez, Alice 3 Jocy Winchester RN RN 1 Arminda Garcia RN RN mb9 Ortiz Adorno RN RN rs5 Dave Patterson MD MD sp4 Corrections: (The following items were deleted from the chart) 12 10:51 10:13 Lactate w/ 2H reflex if indic. drawn and sent. rs5 EDMS 12:48 06:50 BP 156 / 62; Pulse 49bpm; Resp 18bpm; Spontaneous; Pulse Ox 100% RA; ha1 rs5
[2023-05-31] MEDS ORDERED: PIPERACIL/TAZO 3.375 GM VIAL IV ONE ×2 (09:40→18:50)
[2023-05-31] MEDS ORDERED: NA CHLORIDE 0.9% 100 ML ONE ×2 (09:40→18:49)
[2023-05-31] MEDS ORDERED: MORPHINE 4 MG/ML SYR ONE (09:40)
--- NOTE | 2023-05-31 11:49 | P.HP ---
Certification for Inpatient Patient admitted to: Observation With expected LOS: <2 Midnights Patient will require the following post-hospital care: None Practitioner: I am a practitioner with admitting privileges, knowledge of patient current condition, hospital course, and medical plan of care. Services: Services provided to patient in accordance with Admission requirements found in Title 42 Section 412.3 of the Code of Federal Regulations Patient History Date of Service: 05/31/23 Reason for admission: Intractable abdominal pain, enteritis History of Present Illness: 77-year-old male with history of achalasia, CAD with previous CABG, hypertension, hyperlipidemia, previous bowel obstructions/duodenal volvulus presents to the emergency department chief complaint of epigastric pain, nausea. His pain began yesterday about an hour and a half after eating chicken salad chick, he denies vomiting, diarrhea or significant constipation. He was evaluated in the emergency department his labs were significant for lactate of 0.6 white blood cell count 4.1 red blood cell count 3.7 hemoglobin 11.[address] chest abdomen pelvis showed nonspecific fluid filling within nondistended lower abdominal small bowel, mild predominantly subhepatic ascites. Findings may relate to infectious/inflammatory enteritis. Patient still with significant abdominal pain after IV medications, ED provider wishes to admit for intractable abdominal pain, enteritis. Allergies No Known Allergies Allergy (Verified 07/20/18 03:50) Home Medications: Pantoprazole [Protonix Tab*] 40 mg PO DAILY #30 tab 07/21/18 Ascorbic Acid [Vitamin C*] 500 mg PO DAILY 10/06/22 Aspirin Chewable [Aspirin Chewable*] 81 mg PO DAILY 10/06/22 Atorvastatin Calcium [Lipitor*] 10 mg PO BEDTIME 10/06/22 Clopidogrel Bisulfate [Plavix*] 75 mg PO BEDTIME 10/06/22 Cyanocobalamin [Vitamin B-12*] 1,000 mcg PO DAILY 10/06/22 Diphenhydramine HCl [Ez Nite Sleep] 25 mg PO BEDTIME 10/06/22 Docusate Sodium [Dulcolax Stool Softener] 100 mg PO BID 10/06/22 Ferrous Sulfate [Ferrous Sulfate*] 325 mg PO BID 10/06/22 Fexofenadine HCl [Rita Allergy] 180 mg PO DAILY 10/06/22 Lansoprazole 15 mg PO BID 10/06/22 Losartan Potassium 25 mg PO DAILY 10/06/22 Melatonin/Pyridoxine [Melatonin 5 mg Tablet] 10 each PO BEDTIME 10/06/22 Multivit,Ther Iron,Ca,FA & Min [Centrum Tablet*] 1 tab PO DAILY 10/06/22 Sucralfate [Carafate] 1 gm PO BID 10/06/22 Super Beta Prostate 1 tab PO BID 10/06/22 carvediloL [Carvedilol] 6.25 mg PO BID 10/06/22 - Past Medical/Surgical History Diabetic: No -: Achalasia -: CAD with previous CABG -: Hypertension -: Hyperlipidemia -: Bowel obstruction -: tonsils removed -: finger tendon repair -: total left knee replacement- 2000 -: left rotator cuff repair -: cataract sx- both eyes -: right hip replacement october 2012 -: esophagus sx -2012 Psychosocial/ Personal History: Patient lives at home, alone. - Family History Father -: Lung disease - Social History Alcohol use: No CD- Drugs: No Caffeine use: No Place of Residence: Home Review of Systems 10-point ROS is otherwise unremarkable Gastrointestinal: Nausea, Abdominal Pain Physical Examination - Physical Exam General: Alert, In no apparent distress, Oriented x3 HEENT: Atraumatic, PERRLA, Mucous membr. moist/pink, EOMI, Sclerae nonicteric Neck: Supple, 2+ carotid pulse no bruit, No LAD, Without JVD or thyroid abnormality Respiratory: Clear to auscultation bilaterally, Normal air movement Cardiovascular: Regular rate/rhythm, Normal S1 S2 Gastrointestinal: Normal bowel sounds, Tenderness (Mild epigastric tenderness) Musculoskeletal: No tenderness Integumentary: No rashes Neurological: Normal gait, Normal speech, Normal strength at 5/5 x4 extr, Normal tone, Normal affect Lymphatics: No axilla or inguinal lymphadenopathy - Studies Laboratory Data (last 24 hrs) 05/31/23 05/31/23 05/31/23 06:30 06:30 05:30 WBC 4.10 L Hgb 11.7 L Hct 34.6 L Plt Count 252 Sodium 135 L Cancelled Potassium 3.8 Cancelled BUN 29 H Cancelled Creatinine 0.76 Cancelled Glucose 99 Cancelled Total Bilirubin 0.5 Cancelled AST 11 L Cancelled ALT 11 L Cancelled Alkaline Phosphatase 68 Cancelled Lipase 48 Cancelled 05/31/23 05:30 WBC Cancelled Hgb Cancelled Hct Cancelled Plt Count Cancelled Sodium Potassium BUN Creatinine Glucose Total Bilirubin AST ALT Alkaline Phosphatase Lipase Microbiology Data (last 24 hrs): 05/31/23 06:54 Nasopharnyx Influenza Type A Antigen Screen - Final 05/31/23 06:54 Nasopharnyx Influenza Type B Antigen Screen - Final Assessment and Plan - Plan Assessment: Intractable abdominal pain Infectious/inflammatory enteritis History of bowel obstruction/volvulus History of achalasia CAD with history of CABG Hypertension Hyperlipidemia 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 Given copy of CT results recommend follow-up with pulmonology on outpatient basis no active symptoms DVT PPX: Lovenox Code status: Full Discharge Plan: Home Plan to discharge in: 48 Hours - Advance Directives Does patient have a Living Will: No Does patient have a Durable POA for Healthcare: No - Code Status/Comfort Care Code Status Assessed: Yes (Full code) Critical Care: No Time Spent Managing Pts Care (In Minutes): 70
[2023-05-31 12:26] LABS: Specific Gravity > 1.030 (1.005-1.030); Urine Bacteria None Seen /HPF (<20); Urine Bilirubin NEGATIVE (Negative); Urine Blood Negative (Negative); Urine Clarity Clear (Clear); Urine Color Colorless (Yellow); Urine Glucose NEGATIVE (Negative); Urine Protein NEGATIVE (Negative); Urine RBC <5 /HPF (None Seen); Urine Urobilinogen Normal (Normal)
[2023-05-31] MEDS: NA CHLORIDE 0.9% 1,000 ML IV SCH (12:47)
[2023-05-31] MEDS ORDERED: MORPHINE 2 MG/ML SYR IV PRN (12:47)
[2023-05-31] MEDS ORDERED: ONDANSETRON 4 MG/2 ML VIAL IV PRN (12:47)
[2023-05-31 12:56] VITALS: BMI 19.2
[2023-05-31] MEDS: PIPER TAZO 3.375 GM in NA CHLORIDE 0.9% 100 ML IV SCH (17:00)
[2023-06-01 05:28] LABS: AST/SGOT 12 U/L (15-37); Albumin 2.5 g/dL (3.4-5.0); Alkaline Phosphatase 63 U/L (45-117); BUN Blood Urea Nitrogen 14 mg/dL (7-18); Bicarbonate 27 mEq/L (21-32); Bilirubin Total 0.7 mg/dL (0.2-1.0); Glomerular Filtration Rate 90 ml/min (=/>90); Glucose Level 84 mg/dL (74-106); Lipase 8 U/L (13-75); Protein, Total 6.7 g/dL (6.4-8.2); Sodium Level 138 mEq/L (136-145); Troponin High Sensitivity 17.2 pg/mL (<58.9)
[2023-06-01 05:29] LABS: ALT/SGPT < 10 U/L (16-61)
[2023-06-01 05:31] LABS: Absolute Lymphocytes (CBC) 1.1 K/uL (0.7-4.9); Hematocrit 39.8 % (39.6-49.0); MCV 93.1 fL (80-100); MPV 7.5 fL (7.6-11.3); Platelets 177 thou/uL (152-406); RBC Red Blood Cell Count 4.27 M/uL (4.33-5.43)
[2023-06-01] MEDS: PIPER TAZO 3.375 GM in NA CHLORIDE 0.9% 100 ML IV SCH ×2 (07:20→09:00)
[2023-06-01] MEDS ORDERED: PIPERACIL/TAZO 3.375 GM VIAL IV ONE (07:33)
[2023-06-01] MEDS ORDERED: NA CHLORIDE 0.9% 100 ML ONE (07:33)
[2023-06-01] MEDS ORDERED: ENOXAPARIN 40 MG/0.4 ML SQ SCH (09:00)
--- NOTE | 2023-06-01 09:48 | P.PN ---
Date of Service: 06/01/23 Subjective: Pain much improved overnight Currently 1 out of 10, denies nausea/vomiting or diarrhea ROS: 10 point ROS as noted above, otherwise negative Physical exam GEN: Alert, oriented, NAD HEENT: Normal conjunctiva, sclera anicteric CV: Regular rate and rhythm, no edema Pulm: Nonlabored respirations on room air ABD: Soft, nontender, nondistended MSK: No joint tenderness Integumentary: No rashes Neuro: Normal speech, normal affect Vitals reviewed Problem List Intractable abdominal pain Infectious/inflammatory enteritis History of bowel obstruction/volvulus History of achalasia CAD with history of CABG Bradycardia Hypertension Hyperlipidemia 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 Radiology comments that this is likely similar to 2019 and their is opacification of the celiac artery distal to the area of stenosis Lactate 0.6 repeat lactate 0.6 today, Continue empiric antibioticsZosyn, as needed pain medications 10/16 had duodenal volvulus resolved with EGD Appreciate further input from general surgery Continue antibiotics, as needed pain medications CAD with history of CABG Bradycardia Sinus bradycardia noted, patient reports longstanding chronic bradycardia, it is noted that he takes carvedilol at home, discussed holding carvedilol with sherry fregoso and follow-up with cardiology outpatient Hypertension Hyperlipidemia Continue home medications 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 Given copy of CT results recommend follow-up with pulmonology on outpatient basis no active symptoms VTE: Lovenox Code: Full Dispo: 24 hours Time Spent Managing Pts Care (In Minutes): 35
[2023-06-01] MEDS: NA CHLORIDE 0.9% 1,000 ML IV SCH (09:57)
[2023-06-01] MEDS ORDERED: NA CHLORIDE 0.9% 1,000 ML ONE (10:06)
[2023-06-01] MEDS ORDERED: ENOXAPARIN 40 MG/0.4 ML SQ ONE (10:07)
[2023-06-01] MEDS ORDERED: INFLUENZA VACCINE (for 6+ mo) 0.5 ML DOSE IMVAC ONE (12:00)
[2023-06-01] MEDS ORDERED: PNEUMOCOCCAL VACCINE 0.5 ML IMVAC ONE (12:00)
[2023-06-01 12:28] VITALS: BP 157/69; TEMP 98.1
--- NOTE | 2023-06-01 14:36 | P.DS ---
Admission Date: 05/31/23 Discharge Date: 06/01/23 Disposition: ROUTINE DISCHARGE Discharge Condition: GOOD Reason for Admission: Intractable abdominal pain, enteritis Consultations: General surgery-Dr. Posadas Brief History of Present Illness: 77-year-old male with history of achalasia, CAD with previous CABG, hypertension, hyperlipidemia, previous bowel obstructions/duodenal volvulus presents to the emergency department chief complaint of epigastric pain, nausea. His pain began yesterday about an hour and a half after eating chicken salad chick, he denies vomiting, diarrhea or significant constipation. He was evaluated in the emergency department his labs were significant for lactate of 0.6 white blood cell count 4.1 red blood cell count 3.7 hemoglobin 11.[address] chest abdomen pelvis showed nonspecific fluid filling within nondistended lower abdominal small bowel, mild predominantly subhepatic ascites. Findings may relate to infectious/inflammatory enteritis. Patient still with significant abdominal pain after IV medications, ED provider wishes to admit for intractable abdominal pain, enteritis. 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 There is no leukocytosis, CT of the chest abdomen pelvis showed nonspecific fluid filling within nondistended lower abdominal small bowel. Mild predominantly subhepatic ascites. Findings may relate to infectious/inflammatory enteritis. Additionally advanced atherosclerotic changes with tortuosity of the abdominal aorta with up to severe stenosis at the celiac axis origi was noted, this was discussed further with radiology and has been present since 2019, there is opacification of the sciatic artery distal to the area of stenosis as well. Lactate was normal x 2 patient's pain improved significantly overnight and he was evaluated by general surgery. He is stable for discharge at this time. During hospitalization he received IV Zosyn, he will be discharged with a prescription for Augmentin and instructed follow-up with his PCP, GI, general surgery. CT also showed subpleural fibrotic interstitial lung abnormalities new or significant progress since 2013 CT. this was discussed with patient, him and his family were provided with copy of the results and is recommended he follow-up with pulmonology on an outpatient basis. No Shortness of breath or other respiratory symptoms noted during hospitalization. Of note patient was also bradycardic during his hospital stay with rate in the mid 40s, he reports that his heart rate typically runs in the 40s. Carvedilol is on his home medications although he reports he is not very good about taking his medications, he was counseled to discontinue use of carvedilol for the time being until he follows up with his primary care doctor. Vital Signs/Physical Exam: Temp Pulse Resp BP Pulse Ox 98.1 F 56 16 157/69 H 96 06/01/23 12:00 06/01/23 12:00 06/01/23 12:00 06/01/23 12:00 06/01/23 12:00 General: Alert, In no apparent distress, Oriented x3 HEENT: Atraumatic, PERRLA, EOMI Neck: Supple, JVD not distended Respiratory: Clear to auscultation bilaterally, Normal air movement Cardiovascular: Regular rate/rhythm, Normal S1 S2 Gastrointestinal: Normal bowel sounds, No tenderness Musculoskeletal: No tenderness Integumentary: No rashes Neurological: Normal tone, Normal affect Laboratory Data at Discharge: WBC 3.70 thou/uL (4.3-10.9) L 06/01/23 04:52 Hgb 13.3 g/dL (13.6-17.9) L D 06/01/23 04:52 Hct 39.8 % (39.6-49.0) 06/01/23 04:52 Plt Count 177 thou/uL (152-406) D 06/01/23 04:52 Sodium 138 mEq/L (136-145) 06/01/23 04:52 Potassium 4.0 mEq/L (3.5-5.1) 06/01/23 04:52 BUN 14 mg/dL (7-18) 06/01/23 04:52 Creatinine 0.69 mg/dL (0.70-1.30) L 06/01/23 04:52 Glucose 84 mg/dL (74-106) 06/01/23 04:52 Total Bilirubin 0.7 mg/dL (0.2-1.0) 06/01/23 04:52 AST 12 U/L (15-37) L 06/01/23 04:52 ALT < 10 U/L (16-61) L 06/01/23 04:52 Alkaline Phosphatase 63 U/L (45-117) 06/01/23 04:52 Lipase 8 U/L (13-75) L 06/01/23 04:52 Home Medications: Pantoprazole [Protonix Tab*] 40 mg PO DAILY #30 tab 07/21/18 Ascorbic Acid [Vitamin C*] 500 mg PO DAILY 10/06/22 Aspirin Chewable [Aspirin Chewable*] 81 mg PO DAILY 10/06/22 Atorvastatin Calcium [Lipitor*] 10 mg PO BEDTIME 10/06/22 Clopidogrel Bisulfate [Plavix*] 75 mg PO BEDTIME 10/06/22 Cyanocobalamin [Vitamin B-12*] 1,000 mcg PO DAILY 10/06/22 Diphenhydramine HCl [Ez Nite Sleep] 25 mg PO BEDTIME 10/06/22 Docusate Sodium [Dulcolax Stool Softener] 100 mg PO BID 10/06/22 Ferrous Sulfate [Ferrous Sulfate*] 325 mg PO BID 10/06/22 Fexofenadine HCl [Rita Allergy] 180 mg PO DAILY 10/06/22 Lansoprazole 15 mg PO BID 10/06/22 Losartan Potassium 25 mg PO DAILY 10/06/22 Melatonin/Pyridoxine [Melatonin 5 mg Tablet] 10 each PO BEDTIME 10/06/22 Multivit,Ther Iron,Ca,FA & Min [Centrum Tablet*] 1 tab PO DAILY 10/06/22 Sucralfate [Carafate] 1 gm PO BID 10/06/22 Super Beta Prostate 1 tab PO BID 10/06/22 Amox/Clavulanate [Augmentin 875-125 Tab] 875 mg PO BID 7 Days #14 tab 06/01/23 New Medications: Amox/Clavulanate [Augmentin 875-125 Tab] 875 mg PO BID 7 Days #14 tab Physician Discharge Instructions: Patient presented to the hospital chief complaint of epigastric abdominal pain. There has been no leukocytosis, CT of the chest abdomen pelvis showed nonspecific fluid filling within nondistended lower abdominal small bowel. Mild predominantly subhepatic ascites. Findings may relate to infectious/inflammatory enteritis. 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 Lactate was normal x 2 patient's pain improved significantly overnight and he was evaluated by general surgery. He tolerated clear liquids this morning and a soft diet for lunch with no further pain, is ambulatory with no other complaints. He is stable for discharge at this time. During hospitalization he received IV Zosyn, he will be discharged with a prescription for Augmentin and instructed follow-up with his PCP, GI, general surgery. CT also showed subpleural fibrotic interstitial lung abnormalities new or significant progress since 2012 CT. this was discussed with patient, him and his family were provided with copy of the results and is recommended he follow-up with pulmonology on an outpatient basis. No Shortness of breath or other respiratory symptoms noted during hospitalization. Of note patient was also bradycardic during his hospital stay with rate in the mid 40s, he reports that his heart rate typically runs in the 40s. Carvedilol is on his home medications although he reports he is not very good about taking his medications, he was counseled to discontinue use of carvedilol for the time being until he follows up with his primary care doctor. Diet: [place] Activity: Fall precautions Followup: Maikel Posadas MD [ACTIVE - CAN ADMIT] - 1-2 Weeks Radha Adams MD [Primary Care Provider] - 1 Week Prince Giraldo MD [OUTSIDE PHYSICIAN] - 1 Week Time spent managing pt's care (in minutes): 35
[2023-06-01 15:20] VITALS: O2SAT 99
[2023-06-01] MEDS ORDERED: PIPER TAZO 3.375 GM in NA CHLORIDE 0.9% 100 ML IV SCH (16:00)
== END 2023-06-01 14:45 | disposition home or self-care (01) ==
LOC: ER 05:19 → ERHOLD 11:40 → EEVIPCON 11:40
PROVIDERS: ADMIT Hospitalist; ATTEND Hospitalist
DX: A09 Infectious gastroenteritis and colitis, unspecified (principal); I25.10 Atherosclerotic heart disease of native coronary artery without angina pectoris; I10 Essential (primary) hypertension; E78.5 Hyperlipidemia, unspecified; R00.1 Bradycardia, unspecified; R91.8 Other nonspecific abnormal finding of lung field; K22.0 Achalasia of cardia; R18.8 Other ascites; Z11.52 Encounter for screening for COVID-19; Z95.1 Presence of aortocoronary bypass graft
CPT/HCPCS: 93005; 85025 ×2; 81001; 36415; 83605 ×2; 84484 ×3; 83690 ×2; 80053 ×2; 87635; 86140; 87804 ×2; 71260; 74177; 96375; 96374; 99285; Q9967; J2543 ×3; J2270; J2405 ×2; J7040; J7030 ×3; G0378 ×3; J1650

== ENCOUNTER 2023-08-30 17:05 | Inpatient (IN) | payer MEDICARE ==
[2023-08-30] MEDS ORDERED: ONDANSETRON 4 MG/2 ML VIAL ONE (17:21)
[2023-08-30] MEDS ORDERED: NA CHLORIDE 0.9% 500 ML ONE (17:21)
[2023-08-30 17:32] LABS: Absolute Monocytes 0.5 K/uL (0.1-1.3); Absolute Neutrophil 5.2 K/uL (1.8-8.0); Basophils % 0.2 % (0-1.3); Eosinophils % 0.4 % (0-4.4); Hemoglobin 11.6 g/dL (13.6-17.9); Lymphocytes % 14.8 % (15.3-44.8); MCHC 35.2 g/dL (32.0-36.0); MCV 91.1 fL (80-100); MPV 6.9 fL (7.6-11.3); Monocytes % 7.1 % (3.3-12.3); Neutrophils % 77.5 % (41.7-73.7); Platelets 254 thou/uL (152-406); RBC Red Blood Cell Count 3.62 M/uL (4.33-5.43); Red Cell Distribution Width 14.8 % (12.1-15.2)
[2023-08-30 17:34] LABS: PT Prothrombin Time 10.7 SECONDS (9.5-12.5); PTT, Activated Partial Thromb 18.7 SECONDS (24.3-36.9); Protime INR 0.97
[2023-08-30 17:54] LABS: Albumin 2.8 g/dL (3.4-5.0); Albumin/Globulin Ratio 0.9 (1.1-1.8); Anion Gap 9.3 mEq/L (5.0-15.0); Bilirubin Total 0.5 mg/dL (0.2-1.0); Globulin 3.2 g/dL (2.3-3.5); Potassium 5.3 mEq/L (3.5-5.1)
--- NOTE | 2023-08-30 19:26 | RAD REPORT ---
EXAM DESCRIPTION: CT - Abdomen Pelvis W Contrast - 08/30/2023 7:10 pm CLINICAL HISTORY: Abdominal pain COMPARISON: 2022 TECHNIQUE: Computed axial tomography of the abdomen pelvis was obtained. 18 cc [id number]-300 was admini stered intravenously. Oral contrast was not requested which limits evaluation of bowel and appendix All CT scans are performed using dose optimization technique as appropriate and may include automated exposure control or mA/KV adjustment according to patient size. FINDINGS: Postsurgical changes GE junction. Dilatation distal esophagus. Wall of the GE junction jessica ears thickened. The stomach is mildly dilated. The liver, spleen, pancreas, adrenal and kidneys appear unremarkable. There is no evidence of diverticulitis. Hysterectomy. No adnexal mass is seen. Mild chronic anterior subluxation L4 on L5 IMPRESSION: Mild dilatation distal esophagus. The wall of the GE junction appears thickened which ma y indicate inflammation. Mild gastric dilatation
--- NOTE | 2023-08-30 19:26 | RAD REPORT ---
EXAM DESCRIPTION: Joselyn Single View08/30/2023 5:37 pm CLINICAL HISTORY: Cough COMPARISON: July 2023 FINDINGS: Bilateral upper lobe scarring unchanged. The lungs appear clear of acute infiltrate. The heart is normal size. Postsurgical changes involve th e chest IMPRESSION: No acute abnormalities displayed
[2023-08-30] MEDS ORDERED: CEFTRIAXONE 1000 MG/VIAL ONE (19:44)
[2023-08-30] MEDS ORDERED: CLINDAMYCIN 600MG/D5W 50 ML IV ONE (19:44)
[2023-08-30] MEDS ORDERED: WATER FOR INJ,STERILE 10 ML ONE (19:45)
--- NOTE | 2023-08-30 19:59 | EDPHYS ---
Physician Documentation [facility] Name: Bereket Kennedy Age: 88 yrs Sex: Male : 1935 Arrival Date: 08/30/2023 Time: 17:05 Bed 8 Private MD: ED Physician Mikey Thomas HPI: 08/29 18:34 This 88 yrs old Male presents to ER via EMS with complaints of generalized weakness,sob.rn 18:34 Onset: The symptoms/episode began/occurred just prior to arrival. The patient has not rn experienced similar symptoms in the past. 18:34 Patient reports generalized weakness and shortness of breath. Recent admission for rn pneumonia. Patient states still feeling ill and short of breath. No chest pain.. Severity of symptoms: At their worst the symptoms were moderate in the emergency department the symptoms are unchanged. The patient has been recently been admitted at [facility]. Historical: - Allergies: 18:11 No Known Allergies; ko1 - PMHx: 18:11 Cardiomegly; Fluid on left [place]; Hypertensive disorder; Myocardial infarction; ko1 - PSHx: 18:11 cardiac bypass; esophageal sx; ko1 - Immunization history:: Adult Immunizations unknown. - Social history:: Smoking status: Patient denies any tobacco usage or history of. - Family history:: not pertinent. - Hospitalizations: : The patient was recently seen at [facility]. ROS: 18:34 Constitutional: Negative for fever, chills, and weight loss, Eyes: Negative for injury, rn pain, redness, and discharge, Neck: Negative for injury, pain, and swelling, Cardiovascular: Negative for chest pain, palpitations, and edema, Respiratory: Positive for cough and shortness of breath Abdomen/GI: Negative for abdominal pain, nausea, vomiting, diarrhea, and constipation, MS/Extremity: Negative for injury and deformity, Skin: Negative for injury, rash, and discoloration, Neuro: Positive for generalized weakness and malaise Exam: 18:34 Constitutional: This is a well developed, well nourished patient who is awake, alert, rn and in no acute distress. Head/Face: Normocephalic, atraumatic. ENT: Dry mucous membranes, no stridor Cardiovascular: Regular rate and rhythm. No pulse deficits. Respiratory: Mild tachypnea, no retractions Abdomen/GI: Soft, non-tender MS/ Extremity: Pulses equal, no cyanosis. Neurovascular intact. Full, normal range of motion. Equal circumference. Neuro: Awake and alert, GCS 15 Vital Signs: 17:15 BP 137 / 72; Pulse 55; Resp 15; Temp 97; Pulse Ox 97% on R/A; ko1 18:16 BP 149 / 84; Pulse 62; Resp 18; Pulse Ox 99% ; ko1 18:43 BP 169 / 79; Pulse 83; Resp 15; Pulse Ox 97% ; ko1 19:00 BP 149 / 57; Pulse 57; Resp 16; Pulse Ox 98% on R/A; rv 20:00 BP 98 / 53; Pulse 59; Resp 16; Pulse Ox 100% on R/A; rv 21:00 BP 121 / 78; Pulse 58; Resp 16; Temp 98; Pulse Ox 96% on R/A; rv [place] Coma Score: 21:00 Eye Response: spontaneous(4). Motor Response: obeys commands(6). Verbal Response: rv oriented(5). Total: 15. MDM: 17:10 Patient medically screened. rn 19:38 Differential Diagnosis Aspiration, pneumonia, viral infection. Data reviewed: vital rn signs, nurses notes, lab test result(s), radiologic studies, CT scan, plain films. 19:57 Counseling: I had a detailed discussion with the patient and/or guardian regarding the rn historical points, exam findings, and any diagnostic results supporting the discharge/admit diagnosis, lab results, radiology results, the need for further work-up and treatment in the hospital. Response to treatment: the patient's symptoms have mildly improved after treatment, and as a result, I will admit patient. 08/29 17:12 Order name: Blood Culture Adult (2) rn 08/29 17:12 Order name: CBC with Diff; Complete Time: 18:32 rn 08/29 17:12 Order name: CMP; Complete Time: 18:32 rn 08/29 17:12 Order name: Lactate w/ 2H reflex if indic.; Complete Time: 18:32 rn 08/29 17:12 Order name: Protime (+inr); Complete Time: 18:32 rn 08/29 17:12 Order name: Ptt, Activated; Complete Time: 18:32 rn 08/29 17:12 Order name: Urinalysis w/ reflexes rn 08/29 17:57 Order name: Glucose, Ancillary Testing; Complete Time: 18:32 EDMS 08/29 20:40 Order name: Urinalysis w/ reflexes EDMS 08/29 20:40 Order name: CBC with Automated Diff EDMS 08/29 20:40 Order name: CBC with Automated Diff EDMS 08/29 20:40 Order name: CBC with Automated Diff EDMS 08/29 20:40 Order name: CBC with Automated Diff EDMS / 20:40 Order name: Comprehensive Metabolic Panel EDMS 08/29 20:40 Order name: Comprehensive Metabolic Panel EDMS 08/29 20:40 Order name: Comprehensive Metabolic Panel EDMS 08/29 20:40 Order name: Comprehensive Metabolic Panel EDMS 08/29 17:12 Order name: Chest Single View XRAY; Complete Time: 19:36 rn 08/29 19:09 Order name: Abdomen ; Complete Time: 19:36 EDMS 08/29 17:12 Order name: EKG; Complete Time: 17:13 rn 08/29 17:12 Order name: Accucheck; Complete Time: 17:23 rn 08/29 17:12 Order name: Cardiac monitoring; Complete Time: 17:19 rn 08/29 17:12 Order name: EKG - Nurse/Tech; Complete Time: 17:55 rn 08/29 17:12 Order name: IV Saline Lock - Large Bore; Complete Time: 17:19 rn 08/29 17:12 Order name: Labs collected and sent; Complete Time: 17:55 rn 08/29 17:12 Order name: O2 Per Protocol; Complete Time: 17:19 rn 08/29 17:12 Order name: O2 Sat Monitoring; Complete Time: 17:20 rn 08/29 17:12 Order name: Vital Signs; Complete Time: 17:20 rn Administered Medications: 17:23 Drug: Ondansetron IVP 4 mg IVP once; over 2 minutes Route: IVP; Site: right antecubital;ko1 18:09 Follow up: Response: No adverse reaction ko1 17:23 Drug: NS 0.9% IV 500 ml IV at bolus once Route: IV; Rate: bolus; Site: right ko1 antecubital; 18:08 Follow up: Response: No adverse reaction; IV Status: Completed infusion; IV Intake: ko1 500ml 20:00 Drug: Rocephin IV 1 grams IV at calculated rate once; Given slow IV push per pharmacy rv instructions Route: IV; Rate: calculated rate; Site: right antecubital; 20:16 Follow up: IV Status: Completed infusion rv 20:17 Drug: Clindamycin IVPB 600 mg IVPB once over 30 mins; (mix in 50 mL) Route: IVPB; rv Infused Over: 30 mins; Site: right antecubital; 23:28 Follow up: Response: No adverse reaction; IV Status: Completed infusion; IV Intake: [id number] Disposition Summary: 08/30/23 19:59 Hospitalization Ordered Notes: Hospitalization Status: Observation rn Provider: Jas Rogers rn Location: Telemetry/MedSurg (observation) rn Condition: Stable rn Problem: new rn Symptoms: are unchanged rn Bed/Room Type: Standard rn Room Assignment: 429(08/30/23 22:21) Diagnosis - Dehydration rn - Muscle weakness (generalized) rn - Dyspnea, unspecified rn Forms: - Medication Reconciliation Form rn - SBAR form rn - Leadership Thank You Letter rn Signatures: Dispatcher [employer] EDMS Robyn Bond, RN RN Mikey Sy MD MD rn Vicente, Ronaldo RN RN Jennifer Vicente Vanessa RN RN 1 Jessie Tijerina, RN RN Areli Metcalf RN jw7 Corrections: (The following items were deleted from the chart) 18:36 18:34 EMS reports patient at work, was feeling generalized weakness and rn lightheadedness. No syncope. EMS reported irregular heartbeat but regular rate and low blood pressure. Blood pressure was in the 80s, and given almost 1 L bolus by EMS. Patient denies recent illness but does report nausea. No chest pain or shortness of breath. No abdominal pain. No diarrhea.. rn 18:36 18:34 Severity of symptoms: At their worst the symptoms were moderate in the emergency rn department the symptoms have improved rn 18:37 18:34 Hospitalizations: No recent hospitalization is reported. rn rn 18:37 18:34 This 88 yrs old Male presents to ER via EMS with complaints of generalized rn weakness, low blood pressure. rn 19:07 17:13 Abdomen Pelvis W Con+CT.RAD.BRZ ordered. EDCO EDMS 21:35 19:59 rn 21:39 21:35 429 vc1 22:21 21:39 vc1 kl
--- NOTE | 2023-08-30 19:59 | ER ---
Nurse's Notes [facility] Name: Bereket Kennedy Age: 88 yrs Sex: Male : 1935 Arrival Date: 08/30/2023 Time: 17:05 Bed 8 Private MD: Diagnosis: Dehydration;Muscle weakness (generalized);Dyspnea, unspecified Presentation: 08/29 17:15 Chief complaint: EMS states: called for difficulty breathing. Coronavirus screen: At ko1 this time, the client does not indicate any symptoms associated with coronavirus-19. Ebola Screen: No symptoms or risks identified at this time. Initial Sepsis Screen: Does the patient meet any 2 criteria? No. Patient's initial sepsis screen is negative. Does the patient have a suspected source of infection? No. Patient's initial sepsis screen is negative. Risk Assessment: Do you want to hurt yourself or someone else? Patient reports no desire to harm self or others. Onset of symptoms is unknown. Care prior to arrival: IV initiated. 18 GA, in the right antecubital area. 17:15 Method Of Arrival: EMS: [facility] ko1 17:15 Acuity: CARMELINA 3 ko1 Triage Assessment: 17:15 General: Appears distressed, uncomfortable, Behavior is cooperative, appropriate for ko1 age, anxious. Pain: Denies pain. Historical: - Allergies: 18:11 No Known Allergies; ko1 - PMHx: 18:11 Cardiomegly; Fluid on left [place]; Hypertensive disorder; Myocardial infarction; ko1 - PSHx: 18:11 cardiac bypass; esophageal sx; ko1 - Immunization history:: Adult Immunizations unknown. - Social history:: Smoking status: Patient denies any tobacco usage or history of. - Family history:: not pertinent. - Hospitalizations: : The patient was recently seen at [facility]. Screenin:16 [facility] ED Fall Risk Assessment (Adult) History of falling in the last 3 months, ko1 including since admission No falls in past 3 months (0 pts) Confusion or Disorientation No (0 pts) Intoxicated or Sedated No (0 pts) Impaired Gait Yes (1 pt) Mobility Assist Device Used Yes (1 pt) Altered Elimination No (0 pt) Score/Fall Risk Level 0 - 2 = Low Risk Oriented to surroundings, Maintained a safe environment, Educated pt \T\ family on fall prevention, incl call for assistance when getting out of bed, Assessed \T\ reinforced patient's understanding of fall precautions, Provided non-skid footwear, Hourly rounding (assess needs \T\ fall precautionary measures) done, Used ambulatory aids as needed (educated on \T\ assisted with), Used gait belt as appropriate. Abuse screen: Denies threats or abuse. Denies injuries from another. Nutritional screening: No deficits noted. Tuberculosis screening: No symptoms or risk factors identified. Assessment: 17:15 Neuro: No deficits noted. Cardiovascular: Rhythm is sinus bradycardia. Respiratory: ko1 Reports shortness of breath at rest on exertion. GI: Reports nausea, vomiting. : No deficits noted. EENT: No deficits noted. Derm: No deficits noted. Musculoskeletal: No deficits noted. 19:00 General: Appears in no apparent distress. comfortable, Behavior is calm, cooperative. jw7 19:00 Pain: Denies pain. Neuro: Bynum Agitation-Sedation Scale (RASS): 0 - Alert and Calm jw7 Level of Consciousness is awake, alert, obeys commands, Oriented to person, place, time, situation. Cardiovascular: Capillary refill < 3 seconds Clubbing of nail beds is absent JVD is absent Patient's skin is warm and dry. Rhythm is sinus bradycardia. Respiratory: Reports shortness of breath at rest on exertion Airway is patent Trachea midline Respiratory effort is even, unlabored, Respiratory pattern is regular, symmetrical. GI: Abdomen is flat, non-distended, Bowel sounds present X 4 quads. : No deficits noted. No signs and/or symptoms were reported regarding the genitourinary system. EENT: No deficits noted. No signs and/or symptoms were reported regarding the EENT system. Derm: Skin is intact, is healthy with good turgor, is fragile, Skin is dry, Skin is normal, Skin temperature is warm. Musculoskeletal: Circulation, motion, and sensation intact. Range of motion: intact in all extremities. Vital Signs: 17:15 BP 137 / 72; Pulse 55; Resp 15; Temp 97; Pulse Ox 97% on R/A; ko1 18:16 BP 149 / 84; Pulse 62; Resp 18; Pulse Ox 99% ; ko1 18:43 BP 169 / 79; Pulse 83; Resp 15; Pulse Ox 97% ; ko1 19:00 BP 149 / 57; Pulse 57; Resp 16; Pulse Ox 98% on R/A; rv 20:00 BP 98 / 53; Pulse 59; Resp 16; Pulse Ox 100% on R/A; rv 21:00 BP 121 / 78; Pulse 58; Resp 16; Temp 98; Pulse Ox 96% on R/A; rv [place] Coma Score: 21:00 Eye Response: spontaneous(4). Motor Response: obeys commands(6). Verbal Response: rv oriented(5). Total: 15. ED Course: 17:10 Patient arrived in ED. rn 17:10 Mikey Thomas MD is Attending Physician. rn 17:15 Arm band placed on right wrist. Patient placed in an exam room, on a stretcher, on ko1 athletic monitor, on pulse oximetry, Patient notified of wait time. 17:19 Jessie Tijerina, RN is Primary Nurse. ko1 17:38 Chest Single View XRAY In Process Unspecified. EDMS 17:55 Lactate w/ 2H reflex if indic. Sent. ko1 17:55 Blood Culture Adult (2) Sent. ko1 18:09 Blood Culture Adult (2) Sent. ko1 18:09 Lactate w/ 2H reflex if indic. Sent. ko1 18:11 Triage completed. ko1 18:16 Maintain EMS IV. Dressing intact. Good blood return noted. Site clean \T\ dry. Gauge \T\ ko 1 site: 18g right AC. 18:16 Inserted saline lock: 20 gauge in left antecubital area, using aseptic technique. Blood ko1 collected. 18:16 Patient has correct armband on for positive identification. Fall risk band placed. ko1 Placed in gown. Bed in low position. Call light in reach. Side rails up X2. Provided Education on: na. Client placed on continuous cardiac and pulse oximetry monitoring. NIBP monitoring applied. engine monitor on. Door closed. Noise minimized. Lights dimmed. Warm blanket given. Pillow given. 19:12 Abdomen In Process Unspecified. EDMS 19:58 Jas Rogers MD is Hospitalizing Provider. rn 20:19 Primary Nurse role handed off by Jessie Tijerina, RN 23:26 No provider procedures requiring assistance completed. Patient admitted, IV remains in jw7 place. Administered Medications: 17:23 Drug: Ondansetron IVP 4 mg IVP once; over 2 minutes Route: IVP; Site: right antecubital;ko1 18:09 Follow up: Response: No adverse reaction ko1 17:23 Drug: NS 0.9% IV 500 ml IV at bolus once Route: IV; Rate: bolus; Site: right ko1 antecubital; 18:08 Follow up: Response: No adverse reaction; IV Status: Completed infusion; IV Intake: ko1 500ml 20:00 Drug: Rocephin IV 1 grams IV at calculated rate once; Given slow IV push per pharmacy rv instructions Route: IV; Rate: calculated rate; Site: right antecubital; 20:16 Follow up: IV Status: Completed infusion rv 20:17 Drug: Clindamycin IVPB 600 mg IVPB once over 30 mins; (mix in 50 mL) Route: IVPB; rv Infused Over: 30 mins; Site: right antecubital; 23:28 Follow up: Response: No adverse reaction; IV Status: Completed infusion; IV Intake: [id number] Medication: 18:16 VIS not applicable for this client. ko1 Intake: 18:08 IV: 500ml; Total: 500ml. ko1 23:28 IV: 50ml; Total: 550ml. jw7 Outcome: 19:59 Decision to Hospitalize by Provider. rn 23:26 Admitted to Tele accompanied by nurse, via stretcher, room 429, jw7 23:26 Condition: stable 23:26 Instructed on the need for admit, Demonstrated understanding of instructions, 0307 00:00 Patient left the ED. rv Signatures: Dispatcher [employer] EDMS Mikey Thomas MD MD rn Vicente, Ronaldo RN RN Jennifer Vicente Jodi, RN RN jw7 Jessie Tijerina RN RN ko1 Corrections: (The following items were deleted from the chart) 0306 18:13 18:11 General: Appears distressed, uncomfortable, Behavior is cooperative, appropriate ko1 for age, anxious, ko1 18:13 18:11 Pain: Denies pain. ko1 ko1 18:37 18:34 Hospitalizations: No recent hospitalization is reported. rn rn
[2023-08-30 20:20] LABS: Specific Gravity 1.015 (1.005-1.030); Sqamous Epithelial None Seen /HPF (None Seen); Urine Bacteria <20 /HPF (<20); Urine Bilirubin NEGATIVE (Negative); Urine Blood Negative (Negative); Urine Clarity Clear (Clear); Urine Color Light-Yellow (Yellow); Urine Glucose NEGATIVE (Negative); Urine Ketones NEGATIVE (Negative); Urine Microscopic Reflex YN ORDER UMIC; Urine Mucus Slight /HPF (None Seen); Urine Nitrite NEGATIVE (Negative); Urine Protein NEGATIVE (Negative); Urine RBC <5 /HPF (None Seen); Urine Urobilinogen Normal (Normal); Urine WBC <5 /HPF (<5)
[2023-08-30] MEDS ORDERED: ONDANSETRON 4 MG/2 ML VIAL IV PRN (20:34)
--- NOTE | 2023-08-30 20:44 | P.HP ---
Certification for Inpatient Patient admitted to: Inpatient With expected LOS: >2 Midnights Practitioner: I am a practitioner with admitting privileges, knowledge of patient current condition, hospital course, and medical plan of care. Services: Services provided to patient in accordance with Admission requirements found in Title 42 Section 412.3 of the Code of Federal Regulations Patient History Date of Service: 08/31/23 Reason for admission: Weakness, aspiration pneumonia. History of Present Illness: 88-year-old male patient was medical history significant for hypertension, hyperlipidemia, coronary artery disease status post bypass graft surgery, history of achalasia and benign prostatic hypertrophy was evaluated for episode of weakness and suspicion for pneumonia. He reported extreme weakness and lethargy for the past couple of days and he also had issues with suspected aspiration while swallowing. He was evaluated with lab work that showed elevated white cell of 13 K and neutrophilia. He was asked to be evaluated for inpatient care because of suspicion for aspiration pneumonia. He denied overt episode of fever, chills, cough with sputum production. Allergies No Known Allergies Allergy (Verified 07/20/18 03:50) Home Medications: Pantoprazole [Protonix Tab*] 40 mg PO DAILY #30 tab 07/21/18 Ascorbic Acid [Vitamin C*] 500 mg PO DAILY 10/06/22 Aspirin Chewable [Aspirin Chewable*] 81 mg PO DAILY 10/06/22 Atorvastatin Calcium [Lipitor*] 10 mg PO BEDTIME 10/06/22 Clopidogrel Bisulfate [Plavix*] 75 mg PO BEDTIME 10/06/22 Cyanocobalamin [Vitamin B-12*] 1,000 mcg PO DAILY 10/06/22 Losartan Potassium 25 mg PO DAILY 10/06/22 Melatonin/Pyridoxine [Melatonin 5 mg Tablet] 5 mg PO BEDTIME 10/06/22 Multivit,Ther Iron,Ca,FA & Min [Centrum Tablet*] 1 tab PO DAILY 10/06/22 Super Beta Prostate 1 tab PO BID 10/06/22 Finasteride [Proscar] 5 mg PO DAILY 08/23/23 Spironolactone 25 mg PO BEDTIME 08/23/23 Tamsulosin HCl [Flomax] 0.4 mg PO BEDTIME 08/23/23 carvediloL [Carvedilol] 6.25 mg PO BID 08/23/23 Furosemide [Lasix] 20 mg PO DAILY #30 tab 08/25/23 predniSONE [Deltasone*] See Rx Instructions .ROUTE .COMPLEX #44 tab 08/25/23 - Past Medical/Surgical History Diabetic: No -: Achalasia -: CAD with previous CABG -: Hypertension -: Hyperlipidemia -: Bowel obstruction -: tonsils removed -: finger tendon repair -: total left knee replacement- 2000 -: left rotator cuff repair -: cataract sx- both eyes -: right hip replacement october 2012 -: esophagus sx -2012 Psychosocial/ Personal History: Patient lives at home, alone. - Family History Father -: Lung disease - Social History Alcohol use: No CD- Drugs: No Caffeine use: No Review of Systems General: Weakness, Malaise Eyes: Unremarkable ENT: Unremarkable Respiratory: Cough, As per HPI Cardiovascular: Unremarkable Gastrointestinal: Unremarkable Genitourinary: Unremarkable Musculoskeletal: Unremarkable Integumentary: Unremarkable Neurological: Unremarkable Lymphatics: Unremarkable Physical Examination - Physical Exam General: Alert, Oriented x3 HEENT: Atraumatic Neck: Supple Respiratory: Normal air movement Cardiovascular: Regular rate/rhythm, Normal S1 S2 Gastrointestinal: Soft and benign Musculoskeletal: No swelling Neurological: Normal speech, Normal strength at 5/5 x4 extr - Studies Laboratory Data (last 24 hrs) 08/30/23 08/30/23 08/30/23 17:20 17:20 17:20 WBC 6.70 Hgb 11.6 L Hct 33.0 L Plt Count 254 PT 10.7 INR 0.97 APTT 18.7 L Sodium 131 L Potassium 5.3 H BUN 48 H Creatinine 1.39 H Glucose 117 H Total Bilirubin 0.5 AST 18 ALT 24 Alkaline Phosphatase 58 Assessment and Plan - Plan Aspiration pneumonia: Significantly concerning based on patient's clinical symptomatology. Elevated white cell of 13K noted. Will continue empiric antibiotic therapy with Flagyl He will be kept n.p.o. for speech evaluation for possible aspiration. Will continue IV fluid for hydration. Hypertension: We will monitor vital signs per unit protocol and continue outpatient antihypertensive medications. Hyperlipidemia: We will continue statin therapy. Coronary artery disease: Continue aspirin and statin therapy. Benign prostatic hypertrophy: Will continue finasteride and tamsulosin therapy once cleared by speech therapy for swallow. Prophylaxis: Lovenox for DVT prophylaxis CODE STATUS: Full code Disposition: We will treat his suspected aspiration pneumonia and he will be discharged once cleared and deemed clinically stable - Advance Directives Does patient have a Living Will: No Does patient have a Durable POA for Healthcare: No
[2023-08-31] MEDS: D5 0.45 NS 1,000 ML IV SCH (00:11)
[2023-08-31] MEDS: METRONIDAZOLE 500mg IVPB 500 MG/100 ML BAG IV SCH (00:12)
[2023-08-31 00:31] VITALS: BMI 18.4
[2023-08-31 09:28] LABS: Absolute Lymphocytes (CBC) 1.5 K/uL (0.7-4.9); Absolute Monocytes 0.8 K/uL (0.1-1.3); Absolute Neutrophil 5.1 K/uL (1.8-8.0); Basophils % 0.3 % (0-1.3); Eosinophils % 0.5 % (0-4.4); Hematocrit 33.7 % (39.6-49.0); Hemoglobin 11.7 g/dL (13.6-17.9); Lymphocytes % 19.8 % (15.3-44.8); MCH 31.6 pg (27.0-35.0); MCHC 34.8 g/dL (32.0-36.0); MCV 90.9 fL (80-100); MPV 6.8 fL (7.6-11.3); Monocytes % 11.1 % (3.3-12.3); Neutrophils % 68.3 % (41.7-73.7); Nucleated Red Blood Cells % 0.1 % (0-0); Platelets 278 thou/uL (152-406); RBC Red Blood Cell Count 3.71 M/uL (4.33-5.43); Red Cell Distribution Width 14.9 % (12.1-15.2)
[2023-08-31] MEDS: ENOXAPARIN 40 MG/0.4 ML SQ SCH (09:37)
[2023-08-31 09:49] LABS: Albumin 2.8 g/dL (3.4-5.0); Albumin/Globulin Ratio 0.9 (1.1-1.8); Anion Gap 9.9 mEq/L (5.0-15.0); Bilirubin Total 0.5 mg/dL (0.2-1.0); Globulin 3.1 g/dL (2.3-3.5); Potassium 4.9 mEq/L (3.5-5.1); Protein, Total 5.9 g/dL (6.4-8.2)
--- NOTE | 2023-08-31 10:23 | P.PN ---
Subjective Date of Service: 08/31/23 Chief Complaint: Weakness, aspiration pneumonia. Alert and oriented, with suspected aspiration while swallowing, speech eval today N.p.o. after midnight for PEG tube placement in the a.m. - Physical Exam General: Alert, Oriented x3 HEENT: Atraumatic Neck: Supple Respiratory: Normal air movement Cardiovascular: Regular rate/rhythm, Normal S1 S2 Gastrointestinal: Soft and benign Musculoskeletal: No swelling Neurological: Normal speech, Normal strength at 5/5 x4 extr <Carol Chaudhary - Last Filed: 08/31/23 14:56> Date of Service: 09/01/23 <Terrence Singh - Last Filed: 09/01/23 17:20> Review of Systems per HPI <Carol Chaudhary - Last Filed: 08/31/23 14:56> Physical Examination - Vital Signs Temperature: 98.3 F Blood Pressure: 133/63 Pulse: 53 Respirations: 16 Pulse Ox (%): 96 - Studies Laboratory Data (last 24 hrs) 08/30/23 08/30/23 08/30/23 17:20 17:20 17:20 WBC 6.70 Hgb 11.6 L Hct 33.0 L Plt Count 254 PT 10.7 INR 0.97 APTT 18.7 L Sodium 131 L Potassium 5.3 H BUN 48 H Creatinine 1.39 H Glucose 117 H Total Bilirubin 0.5 AST 18 ALT 24 Alkaline Phosphatase 58 Microbiology Data (last 24 hrs): 08/30/23 17:20 Blood - Blood Anaerobic Blood Culture - Final <Carol Chaudhary - Last Filed: 08/31/23 14:56> - Studies Microbiology Data (last 24 hrs): 08/30/23 17:20 Blood - Blood Anaerobic Blood Culture - Final <Terrence Singh - Last Filed: 09/01/23 17:20> Assessment And Plan - Plan Assessment and Plan - Plan Acute hypoxic respiratory failure secondary to aspiration pneumonia Aspiration pneumonia: Significantly concerning based on patient's clinical symptomatology. Elevated white cell of 13K noted. Will continue empiric antibiotic therapy with Flagyl He will be kept n.p.o. for speech evaluation for possible aspiration. Will continue IV fluid for hydration. 08/30 N.p.o. after MN PEG tube placement by Dr. Posadas 08/31 (hold AC today) Hypertension: We will monitor vital signs per unit protocol and continue outpatient antihypertensive medications. Hyperlipidemia: We will continue statin therapy. Coronary artery disease: Continue aspirin and statin therapy. Benign prostatic hypertrophy: Will continue finasteride and tamsulosin therapy once cleared by speech therapy for swallow. Prophylaxis: Lovenox for DVT prophylaxis CODE STATUS: Full code Disposition: We will treat his suspected aspiration pneumonia and he will be discharged once cleared and deemed clinically stable Critical Care: No Time Spent Managing PTS Care (In Minutes): 35 <Carol Chaudhary - Last Filed: 08/31/23 14:56> Date of Service: 08/31/23 Patient seen and examined. Patient scheduled for PEG tube placement. Patient swallowing function is stable; however, patient's caloric intake is very minimal because of his difficulty in swallowing. PEG tube for meeting caloric intake. Will start tube feeds once this is placed. <Terrence Singh - Last Filed: 09/01/23 17:20>
--- NOTE | 2023-08-31 14:14 | EKG ---
Test Date: 2023-08-30 Test Time: 17:49:28 Human Resources Representative: YUSRA MEASUREMENT RESULTS: Intervals: Rate: 55 MA: 176 QRSD: 166 QT: 476 QTc: 455 [place]: P: 68 MA: 176 QRS: -60 T: 69 INTERPRETIVE STATEMENTS: Sinus bradycardia Right bundle branch block Left anterior fascicular block Bifascicular block T wave abnormality, consider lateral ischemia Abnormal ECG Compared to ECG 08/22/2023 05:31:30 Left anterior fascicular block now present Bifascicular block now present T-wave abnormality now present Possible ischemia now present Sinus rhythm no longer present Atrial premature complex(es) no longer present Electronically Signed On 08-31-23 14:12:46 CHAINMAN by Cale Amaro
--- NOTE | 2023-08-31 18:24 | RAD REPORT ---
EXAM DESCRIPTION: RAD - Barium Swallow Modified - 08/31/2023 1:32 pm CLINICAL HISTORY: Dysphagia/achalasia COMPARISON: None. TECHNIQUE: The patient was given liquid, semi-solid and solid forms of barium. Lateral view fluorosc opic imaging was performed in conjunction with speech pathology service. Fluoro time: 2:41 minutes. FINDINGS: Flash laryngeal penetration seen with thin liquids. No evidence of aspiration. Vallecular and pyriform sinus residues. Cricopharyngeal bar seen on multiple swallows. IMPRESSION: Flash laryngeal penetration. Cricopharyngeal bar seen on multiple swallows. No evidence of love aspiration. Please refer to speech pathology note for additional details.
[2023-09-01 03:52] LABS: Absolute Eosinophils 0.1 K/uL (0-0.5); Absolute Lymphocytes (CBC) 1.6 K/uL (0.7-4.9); Absolute Monocytes 0.8 K/uL (0.1-1.3); Basophils % 0.4 % (0-1.3); Eosinophils % 1.1 % (0-4.4); Hematocrit 33.3 % (39.6-49.0); Hemoglobin 11.6 g/dL (13.6-17.9); Lymphocytes % 24.5 % (15.3-44.8); MCH 31.5 pg (27.0-35.0); MCHC 34.8 g/dL (32.0-36.0); MCV 90.6 fL (80-100); MPV 6.7 fL (7.6-11.3); Monocytes % 12.2 % (3.3-12.3); Neutrophils % 61.8 % (41.7-73.7); Platelets 250 thou/uL (152-406); RBC Red Blood Cell Count 3.68 M/uL (4.33-5.43); Red Cell Distribution Width 15.1 % (12.1-15.2)
[2023-09-01 04:09] LABS: Albumin 2.5 g/dL (3.4-5.0); Albumin/Globulin Ratio 0.8 (1.1-1.8); Anion Gap 9.1 mEq/L (5.0-15.0); Bilirubin Total 0.6 mg/dL (0.2-1.0); Globulin 3.1 g/dL (2.3-3.5); Potassium 5.1 mEq/L (3.5-5.1); Protein, Total 5.6 g/dL (6.4-8.2)
[2023-09-01] MEDS ORDERED: propofoL 200 MG/20 ML VIAL IV ONE (14:21)
[2023-09-01] MEDS ORDERED: EPHEDRINE SULF 50 MG/ML VIAL ONE (14:21)
[2023-09-01] MEDS ORDERED: LIDOCAINE 1% MPF 5 ML VIAL ONE (14:22)
[2023-09-01] MEDS: NA CHLORIDE 0.9% 500 ML ONE (14:50)
--- NOTE | 2023-09-01 17:27 | P.PN ---
Date of Service: 09/01/23 Subjective Patient is doing well. Patient denies any complaints. Scheduled for PEG tube placement later today. Continue with feedings and monitor caloric intake. Patient swallowing function is stable; however, patient's caloric intake is very minimal because of his difficulty in swallowing. PEG tube for meeting caloric intake. Will start tube feeds once this is placed. Physical Examination - Vital Signs Reviewed - Physical Exam General: Alert, Oriented x3; cachectic and emaciated Respiratory: Normal air movement Cardiovascular: Regular rate/rhythm, Normal S1 S2 Gastrointestinal: Soft and benign; scaphoid abdomen Musculoskeletal: Muscular atrophy Neurological: No focal deficits Assessment and Plan -Assessment/Plan Acute hypoxic respiratory failure secondary to aspiration pneumonia Aspiration pneumonia: Continue with antibiotics. Chest x-ray negative for pneumonia. Oxygenation is stable. Working on SNF placement Hypertension: Continue with antihypertensives Hyperlipidemia: Continue with statin therapy Coronary artery disease: Resume cardiac meds Benign prostatic hypertrophy: Continue with finasteride and Flomax Prophylaxis: Lovenox for DVT prophylaxis CODE STATUS: Full code Disposition: SNF placement Critical Care: No Time Spent Managing PTS Care (In Minutes): 30
[2023-09-02 04:01] LABS: Albumin 2.7 g/dL (3.4-5.0); Bilirubin Total 0.9 mg/dL (0.2-1.0); Globulin 2.8 g/dL (2.3-3.5); Protein, Total 5.5 g/dL (6.4-8.2)
[2023-09-02 04:05] LABS: Absolute Basophils 0.1 K/uL (0-0.5); Absolute Eosinophils 0.1 K/uL (0-0.5); Absolute Lymphocytes (CBC) 1.5 K/uL (0.7-4.9); Absolute Monocytes 0.7 K/uL (0.1-1.3); Absolute Neutrophil 3.9 K/uL (1.8-8.0); Basophils % 0.9 % (0-1.3); Eosinophils % 1.3 % (0-4.4); Hematocrit 34.2 % (39.6-49.0); Hemoglobin 11.9 g/dL (13.6-17.9); Lymphocytes % 24.5 % (15.3-44.8); MCH 31.7 pg (27.0-35.0); MCHC 34.8 g/dL (32.0-36.0); MCV 90.9 fL (80-100); Monocytes % 11.1 % (3.3-12.3); Neutrophils % 62.2 % (41.7-73.7); Nucleated Red Blood Cells % 0.2 % (0-0); Platelets 268 thou/uL (152-406); RBC Red Blood Cell Count 3.77 M/uL (4.33-5.43); Red Cell Distribution Width 15.1 % (12.1-15.2)
--- NOTE | 2023-09-02 07:23 | P.PN ---
Subjective Date of Service: 09/02/23 Chief Complaint: Weakness, aspiration pneumonia. Alert and oriented, with suspected aspiration while swallowing, speech eval today N.p.o. after midnight for PEG tube placement in the a.m. - Physical Exam General: Alert, Oriented x3 HEENT: Atraumatic Neck: Supple Respiratory: Normal air movement Cardiovascular: Regular rate/rhythm, Normal S1 S2 Gastrointestinal: Soft and benign Musculoskeletal: No swelling Neurological: Normal speech, Normal strength at 5/5 x4 extr Physical Examination - Vital Signs Temperature: 98.8 F Blood Pressure: 121/63 Pulse: 60 Respirations: 16 Pulse Ox (%): 99 Assessment And Plan - Plan Assessment and Plan - Plan Acute hypoxic respiratory failure secondary to aspiration pneumonia Aspiration pneumonia: Significantly concerning based on patient's clinical symptomatology. Elevated white cell of 13K noted. Will continue empiric antibiotic therapy with Flagyl He will be kept n.p.o. for speech evaluation for possible aspiration. Will continue IV fluid for hydration. 08/30 N.p.o. after [place] PEG tube placement by Dr. Posadas 08/31 (hold AC today) Hypertension: We will monitor vital signs per unit protocol and continue outpatient antihypertensive medications. Hyperlipidemia: We will continue statin therapy. Coronary artery disease: Continue aspirin and statin therapy. Benign prostatic hypertrophy: Will continue finasteride and tamsulosin therapy once cleared by speech therapy for swallow. Prophylaxis: Lovenox for DVT prophylaxis CODE STATUS: Full code Disposition: We will treat his suspected aspiration pneumonia and he will be discharged once cleared and deemed clinically stable
--- NOTE | 2023-09-02 10:09 | P.PN ---
Subjective Date of Service: 09/02/23 Chief Complaint: Weakness, unable to swallow No significant change has difficulty swallowing at times awaiting a PEG tube is a very weak Review of Systems Unremarkable General: Weakness Respiratory: Shortness of Breath Physical Examination - Vital Signs Temperature: 98.8 F Blood Pressure: 121/63 Pulse: 60 Respirations: 16 Pulse Ox (%): 99 - Physical Exam General: Alert, Oriented x3 Respiratory: Clear to auscultation bilaterally, Diminished Cardiovascular: No edema, Regular rate/rhythm, Normal S1 S2 Assessment And Plan - Current Problems (Diagnosis) (1) Dysphagia Current Visit: Yes Status: Acute Plan: Patient has dysphagia from his underlying achalasia and was scheduled to have a PEG tube put in plan to start him on some Reglan for now Qualifiers: Dysphagia type: esophageal phase Qualified Code(s): R13.19 - Other dysphagia (2) Pulmonary fibrosis Current Visit: Yes Status: Acute Plan: Continues to remain weak debilitated labs chemistries reviewed no evidence of active sepsis and has mild diastolic dysfunction hold diuretics for now continue with IV fluids patent as patient is not eating and drinking much patient has predominantly apical fibrosis
[2023-09-02] MEDS: carvediloL 6.25 MG TAB PO SCH (10:30)
[2023-09-02] MEDS: METOCLOPRAMIDE 10 MG/2mL INJ IV SCH (10:37)
[2023-09-02] MEDS: LOSARTAN POTASSIUM 50 MG TABLET PO SCH (10:38)
[2023-09-02] MEDS: PANTOPRAZOLE 40MG TABLET PO SCH (10:38)
[2023-09-02] MEDS ORDERED: predniSONE 10 MG TAB PO SCH (11:00)
--- NOTE | 2023-09-02 16:09 | P.PN ---
Date of Service: 09/02/23 Dr. Posadas request patient to be on a clear liquid diet, Monday/Monday n.p.o. Monday after midnight for PEG placement PEG tube placement was canceled on Thursday 08/31 due to food/full abdomen.
[2023-09-02] MEDS: TAMSULOSIN 0.4 MG SR CAP PO SCH (20:05)
[2023-09-02] MEDS ORDERED: SPIRONOLACTONE 25 MG TABLET PO SCH (21:00)
[2023-09-03 04:03] LABS: Absolute Basophils 0.1 K/uL (0-0.5); Absolute Eosinophils 0.1 K/uL (0-0.5); Absolute Lymphocytes (CBC) 1.6 K/uL (0.7-4.9); Absolute Monocytes 0.6 K/uL (0.1-1.3); Absolute Neutrophil 3.1 K/uL (1.8-8.0); Basophils % 1.4 % (0-1.3); Eosinophils % 1.3 % (0-4.4); Hematocrit 33.3 % (39.6-49.0); Hemoglobin 11.8 g/dL (13.6-17.9); Lymphocytes % 29.3 % (15.3-44.8); MCH 31.9 pg (27.0-35.0); MCHC 35.2 g/dL (32.0-36.0); MCV 90.6 fL (80-100); MPV 6.9 fL (7.6-11.3); Monocytes % 11.4 % (3.3-12.3); Neutrophils % 56.6 % (41.7-73.7); Platelets 224 thou/uL (152-406); RBC Red Blood Cell Count 3.68 M/uL (4.33-5.43); Red Cell Distribution Width 14.9 % (12.1-15.2)
[2023-09-03 04:19] LABS: Albumin 2.5 g/dL (3.4-5.0); Anion Gap 7.2 mEq/L (5.0-15.0); Potassium 4.2 mEq/L (3.5-5.1)
[2023-09-03 04:21] LABS: Phosphorus 1.5 mg/dL (2.5-4.9)
[2023-09-03] MEDS ORDERED: FUROSEMIDE 20 MG TABLET PO SCH (09:00)
[2023-09-03] MEDS: FINASTERIDE 5 MG TAB PO SCH (09:18)
[2023-09-03] MEDS: POTASSIUM PHOS 30 MM in NA CHLORIDE 0.9% 500 ML IV ONE (10:34)
--- NOTE | 2023-09-03 10:37 | P.PN ---
Subjective Date of Service: 09/03/23 Chief Complaint: Weakness, unable to swallow Patient is doing better today no change scheduled for PEG tomorrow no new complaints Review of Systems General: Weakness Respiratory: Shortness of Breath Physical Examination - Vital Signs Temperature: 98.1 F Blood Pressure: 120/64 Pulse: 72 Respirations: 16 Pulse Ox (%): 97 - Physical Exam General: Alert, In no apparent distress Respiratory: Clear to auscultation bilaterally Cardiovascular: No edema, Normal pulses Assessment And Plan - Current Problems (Diagnosis) (1) Dysphagia Current Visit: Yes Status: Acute Plan: Patient has dysphagia scheduled for a PEG tomorrow continue with Reglan labs reviewed phosphorus a little low Qualifiers: Dysphagia type: esophageal phase Qualified Code(s): R13.19 - Other dysphagia (2) Pulmonary fibrosis Current Visit: Yes Status: Acute Plan: Continues to remain weak debilitated labs chemistries reviewed no evidence of active sepsis and has mild diastolic dysfunction hold diuretics for now continue with IV fluids patent as patient is not eating and drinking much patient has predominantly apical fibrosis (3) Hypophosphatemia Current Visit: Yes Status: Acute Plan: Replace with IV for now
[2023-09-03] MEDS: POTASS/SODIUM PHOSPHATE 1 PKT POWD.PACK PO SCH (10:59)
[2023-09-04 06:24] LABS: Absolute Eosinophils 0.1 K/uL (0-0.5); Absolute Lymphocytes (CBC) 1.5 K/uL (0.7-4.9); Absolute Monocytes 0.6 K/uL (0.1-1.3); Absolute Neutrophil 3.1 K/uL (1.8-8.0); Basophils % 0.6 % (0-1.3); Eosinophils % 1.8 % (0-4.4); Hematocrit 31.4 % (39.6-49.0); Hemoglobin 10.9 g/dL (13.6-17.9); Lymphocytes % 27.8 % (15.3-44.8); MCH 31.6 pg (27.0-35.0); MCHC 34.6 g/dL (32.0-36.0); MCV 91.3 fL (80-100); MPV 6.8 fL (7.6-11.3); Monocytes % 11.9 % (3.3-12.3); Neutrophils % 57.9 % (41.7-73.7); Platelets 215 thou/uL (152-406); RBC Red Blood Cell Count 3.44 M/uL (4.33-5.43)
[2023-09-04 06:39] LABS: Albumin 2.3 g/dL (3.4-5.0); Albumin/Globulin Ratio 0.9 (1.1-1.8); Anion Gap 8.2 mEq/L (5.0-15.0); Bilirubin Total 0.7 mg/dL (0.2-1.0); Globulin 2.5 g/dL (2.3-3.5); Phosphorus 1.8 mg/dL (2.5-4.9); Potassium 4.2 mEq/L (3.5-5.1); Protein, Total 4.8 g/dL (6.4-8.2)
--- NOTE | 2023-09-04 17:37 | P.PN ---
Subjective Date of Service: 09/04/23 Chief Complaint: Weakness, unable to swallow Subjective: No new changes <Jeimy Rubio - Last Filed: 09/04/23 17:39> Date of Service: 09/04/23 <Terrence Singh - Last Filed: 09/08/23 03:58> Review of Systems 10-point ROS is otherwise unremarkable Gastrointestinal: Other (pt states no BM x 4-5 days), As per HPI <Jeimy Rubio - Last Filed: 09/04/23 17:39> Physical Examination - Vital Signs Temperature: 98.7 F Blood Pressure: 115/68 Pulse: 68 Respirations: 16 Pulse Ox (%): 93 - Physical Exam General: Alert, In no apparent distress, Oriented x3, Cachectic HEENT: Atraumatic, Normocephalic Neck: Supple Respiratory: Normal air movement Cardiovascular: Gallops, Systolic murmur Capillary refill: <2 Seconds Gastrointestinal: Soft and benign Musculoskeletal: No clubbing, No swelling Integumentary: No rashes Neurological: Abnormal tone Lymphatics: No axilla or inguinal lymphadenopathy External genitalia: Deferred Rectal: Deferred <Jeimy Rubio - Last Filed: 09/04/23 17:39> Assessment And Plan - Plan Continue with feedings and monitor caloric intake. Patient swallowing function is stable; however, patient's caloric intake is very minimal because of his difficulty in swallowing. Vitals: reviewed Physical Examination - Physical Exam General: Alert, Oriented x3 HEENT: Atraumatic Neck: Supple Respiratory: Normal air movement Cardiovascular: Regular rate/rhythm, Normal S1 S2 Gastrointestinal: Soft and benign Musculoskeletal: No swelling Neurological: Normal speech, Normal strength at 5/5 x4 extr Assessment and Plan - Plan Aspiration pneumonia: Significantly concerning based on patient's clinical symptomatology. Elevated white cell of 13K noted. Will continue empiric antibiotic therapy with Flagyl Swallow study passes but insufficient caloric intake Will continue IV fluid for hydration. Hypertension: We will monitor vital signs per unit protocol and continue outpatient antihypertensive medications. Hyperlipidemia: We will continue statin therapy. Coronary artery disease: Continue aspirin and statin therapy. Benign prostatic hypertrophy: Will continue finasteride and tamsulosin therapy Prophylaxis: Lovenox for DVT prophylaxis CODE STATUS: Full code Disposition: will discharge to [place] for caloric counts, if fails caloric count requirement PEG to be placed next week. - Advance Directives Does patient have a Living Will: No Does patient have a Durable POA for Healthcare: No Discharge Plan: Prison Plan to discharge in: 24 Hours <Jeimy Rubio - Last Filed: 09/04/23 17:39> Date of Service: 09/04/23 Patient seen and examined. Agree with findings as mentioned above. Awaiting for placement at this time. PEG tube was delayed because surgeon was medically unable to come to the hospital. This will be done as an outpatient. Continue monitoring caloric intake. <Terrence Singh - Last Filed: 09/08/23 03:58>
[2023-09-05] MEDS: ENSURE ENLIVE 237 ML CAN PO SCH (12:00)
--- NOTE | 2023-09-05 13:29 | P.PN ---
Date of Service: 09/05/23 Subjective: Continues to await placement for assistance, calorie count, etc. No changes per patient. States he is eating and just waiting to go somewhere. Tolerating po. Vital Signs: reviewed Physical Exam General: Alert, In no apparent distress, Oriented x3, Cachectic HEENT: Atraumatic, Normocephalic Neck: Supple Respiratory: Normal air movement Cardiovascular: Gallops, Systolic murmur Capillary refill: <2 Seconds Gastrointestinal: Soft and benign Musculoskeletal: No clubbing, No swelling Integumentary: No rashes Neurological: Abnormal tone Lymphatics: No axilla or inguinal lymphadenopathy External genitalia: Deferred Rectal: Deferred Assessment And Plan - Plan Continue with feedings and monitor caloric intake. Patient swallowing function is stable; however, patient's caloric intake is very minimal because of his difficulty in swallowing. Vitals: reviewed Assessment and Plan - Plan Elevated white cell of 13K noted. WBC 5.8 on 09/05/23 Swallow study passes but insufficient caloric intake Will continue encourage po fluid for hydration. Ensure Hypertension: We will monitor vital signs per unit protocol and continue outpatient antihypertensive medications. Hyperlipidemia: We will continue statin therapy. Coronary artery disease: Continue aspirin and statin therapy. Benign prostatic hypertrophy: Will continue finasteride and tamsulosin therapy Prophylaxis: Lovenox for DVT prophylaxis CODE STATUS: Full code Disposition: will discharge to NH for caloric counts, if fails caloric count requirement PEG to be placed next week. - Advance Directives Does patient have a Living Will: No Does patient have a Durable POA for Healthcare: No Discharge Plan: Group Home Plan to discharge in: 24 Hours <Jeimy Rubio - Last Filed: 09/06/23 07:51> Patient seen and examined. Patient's clinical symptoms are stable. At this time we are just waiting for placement. <Terrence Singh - Last Filed: 09/08/23 03:59>
[2023-09-06 06:00] LABS: Absolute Eosinophils 0.1 K/uL (0-0.5); Absolute Lymphocytes (CBC) 1.7 K/uL (0.7-4.9); Absolute Monocytes 0.8 K/uL (0.1-1.3); Absolute Neutrophil 3.3 K/uL (1.8-8.0); Basophils % 0.6 % (0-1.3); Eosinophils % 1.3 % (0-4.4); Hematocrit 30.8 % (39.6-49.0); Hemoglobin 10.7 g/dL (13.6-17.9); Lymphocytes % 28.1 % (15.3-44.8); MCH 31.7 pg (27.0-35.0); MCHC 34.7 g/dL (32.0-36.0); MCV 91.1 fL (80-100); MPV 6.9 fL (7.6-11.3); Monocytes % 13.5 % (3.3-12.3); Neutrophils % 56.5 % (41.7-73.7); Nucleated Red Blood Cells % 0.1 % (0-0); Platelets 223 thou/uL (152-406); RBC Red Blood Cell Count 3.38 M/uL (4.33-5.43)
[2023-09-06 06:08] LABS: Albumin 2.3 g/dL (3.4-5.0); Albumin/Globulin Ratio 0.9 (1.1-1.8); Anion Gap 7.2 mEq/L (5.0-15.0); Bilirubin Total 0.5 mg/dL (0.2-1.0); Globulin 2.7 g/dL (2.3-3.5); Potassium 4.2 mEq/L (3.5-5.1)
--- NOTE | 2023-09-06 07:51 | P.PN ---
Date of Service: 09/06/23 Subjective: Continues to await placement for assistance, calorie count, etc. No changes per patient. States he is eating and just waiting to go somewhere. placement pending. Tolerating po. Vital Signs: reviewed Physical Exam General: Alert, In no apparent distress, Oriented x3, Cachectic HEENT: Atraumatic, Normocephalic Neck: Supple Respiratory: Normal air movement Cardiovascular: Gallops, Systolic murmur Capillary refill: <2 Seconds Gastrointestinal: Soft and benign Musculoskeletal: No clubbing, No swelling Integumentary: No rashes Neurological: Abnormal tone Lymphatics: No axilla or inguinal lymphadenopathy, left forearm with IV infiltr ation, tight, mildly erythematous, IV stopped. External genitalia: Deferred Rectal: Deferred Assessment And Plan - Plan Continue with small frequent meals with Ensure supplementation and monitor caloric intake. Patient swallowing function is stable; however, patient's caloric intake is very minimal because of his difficulty in swallowing. Vitals: reviewed Assessment and Plan - Plan Elevated white cell of 13K noted. WBC 5.8 on 09/05/23 Swallow study passes but insufficient caloric intake Will continue encourage po fluid for hydration. Ensure DC IV/IVF. Warm compresses to left forearm, US ordered to r/o thrombophlebitis Hypertension: We will monitor vital signs per unit protocol and continue outpatient antihypertensive medications. Hyperlipidemia: We will continue statin therapy. Coronary artery disease: Continue aspirin and statin therapy. Benign prostatic hypertrophy: Will continue finasteride and tamsulosin therapy Prophylaxis: Lovenox for DVT prophylaxis CODE STATUS: Full code Disposition: will discharge to NH for caloric counts, if fails caloric count requirement PEG to be placed next week. - Advance Directives Does patient have a Living Will: No Does patient have a Durable POA for Healthcare: No Discharge Plan: Intermediate Plan to discharge in: 24 Hours <Jeimy Rubio - Last Filed: 09/06/23 07:47> Patient was seen and examined. Agree with findings as mentioned above. Continue to wait for placement at this time. <Terrence Singh - Last Filed: 09/08/23 03:59>
--- NOTE | 2023-09-06 12:38 | RAD REPORT ---
EXAM DESCRIPTION: US - UPPER EXTREMITY VENOUS UNILATE - 09/06/2023 12:32 pm CLINICAL HISTORY: edema Arm pain and swelling COMPARISON: Extrem Venous W Compress Henry dated 08/22/2023 FINDINGS: Left upper extremity venous system was interrogated with Doppler technique. Normal flow, c ompressibility and augmentation was noted. There is no DVT present. IMPRESSION: No evidence of left upper extremity deep venous thrombosis.
[2023-09-07 04:31] LABS: Absolute Eosinophils 0.1 K/uL (0-0.5); Absolute Lymphocytes (CBC) 1.9 K/uL (0.7-4.9); Absolute Monocytes 0.8 K/uL (0.1-1.3); Absolute Neutrophil 2.3 K/uL (1.8-8.0); Basophils % 0.8 % (0-1.3); Eosinophils % 1.4 % (0-4.4); Hemoglobin 9.7 g/dL (13.6-17.9); Lymphocytes % 37.1 % (15.3-44.8); MCH 31.5 pg (27.0-35.0); MCHC 34.7 g/dL (32.0-36.0); MCV 90.7 fL (80-100); MPV 6.8 fL (7.6-11.3); Monocytes % 15.9 % (3.3-12.3); Neutrophils % 44.8 % (41.7-73.7); Platelets 214 thou/uL (152-406); RBC Red Blood Cell Count 3.09 M/uL (4.33-5.43); Red Cell Distribution Width 15.3 % (12.1-15.2)
[2023-09-07 04:45] LABS: Albumin 2.1 g/dL (3.4-5.0); Albumin/Globulin Ratio 0.8 (1.1-1.8); Anion Gap 8.1 mEq/L (5.0-15.0); Bilirubin Total 0.4 mg/dL (0.2-1.0); Globulin 2.6 g/dL (2.3-3.5); Potassium 4.1 mEq/L (3.5-5.1); Protein, Total 4.7 g/dL (6.4-8.2)
[2023-09-11 04:49] VITALS: O2SAT 97
--- NOTE | 2023-09-11 07:15 | P.DS ---
Admission Date: 08/30/23 Discharge Date: 09/11/23 Reason for Admission: Weakness, unable to swallow Brief History of Present Illness: 88-year-old male patient was medical history significant for hypertension, hyperlipidemia, coronary artery disease status post bypass graft surgery, hi story of achalasia and benign prostatic hypertrophy was evaluated for episode of weakness and suspicion for pneumonia. He reported extreme weakness and lethargy for the past couple of days and he also had issues with suspected aspiration while swallowing. He was evaluated with lab work that showed elevated white cell of 13 K and neutrophilia. He was asked to be evaluated for inpatient care because of suspicion for aspiration pneumonia. He denied overt episode of fever, chills, cough with sputum production. Physical Examination - Physical Exam General: Alert, Oriented x3 HEENT: Atraumatic Neck: Supple Respiratory: Normal air movement Cardiovascular: Regular rate/rhythm, Normal S1 S2 Gastrointestinal: Soft and benign Musculoskeletal: No swelling Neurological: Normal speech, Normal strength at 5/5 x4 extr Hospital Course: 88 year-old male patient presented with achalasia. Was noted to have aspiration pneumonia. Condition improved with IV antibiotics for aspiration pneumonia. Evaluated by speech therapy for dysphagia. Was evaluated by surgery with a 08/[address] Posadas patient tolerating diet, stable for discharge to the halfway with follow-up appointment with primary care physician, PROBLEM: Aspiration pneumonia Dysphagia Achalasia thrombophlebitis Protein calorie malnutrition No peg placement d/t pass Swallow [facility] Discharge facility [facility], , Completed IV antibiotics while inpatient. Dietitian evaluation 08/31 notified for BMI < 18.5 Patient admitted with c/o weakness and suspicion for pneumonia. Per chart, he is s/p MBSS yesterday with recommendation of a minced & moist diet 1.) PO diet as determined by ST 3.) Monitor PO intake/EN tolerance and hydration Speech therapy recommendation 08/30 Recommend Minced and Moist diet with thin liquids. Follow general swallow precautions. Barium swallow study 08/30 IMPRESSION: Flash laryngeal penetration. Cricopharyngeal bar seen on multiple swallows. No evidence of love aspiration. US ordered to r/o thrombophlebitis 09/05 Venous Doppler left upper extremity no evidence of DVT Continue home medicines as previously prescribed GOAL: Clear understanding of disease process INSTRUCTIONS: Physician Discharge Instructions: -Follow-up with PCP in 1 to 2 weeks -Please callif any questions regarding hospital stay -Please call nursing station at [phone] if any nursing or medication questions -Return to the emergency room if symptoms worsen Diet: ADA, low sodium Activity: Fall precautions <Carol Chaudhary - Last Filed: 09/11/23 07:25> Admission Date: 08/30/23 Discharge Date: 09/11/23 Hospital Course: Pt wenceslao nd examined. I agree with the note by the METER [employer]ER. s/p treatment for aspiration pneumonia. Ok to discharge pt. Follow up with PCP. <Jodie Moon - Last Filed: 09/11/23 16:18> Disposition: TRANSFER TO SNF - REHAB Discharge Condition: FAIR Vital Signs/Physical Exam: Temp Pulse Resp BP Pulse Ox 97.4 F 51 16 115/56 L 99 09/11/23 04:00 09/11/23 04:00 09/11/23 04:00 09/11/23 04:00 09/11/23 04:00 Laboratory Data at Discharge: WBC 5.20 thou/uL (4.3-10.9) 09/07/23 03:56 Hgb 9.7 g/dL (13.6-17.9) L D 09/07/23 03:56 Hct 28.0 % (39.6-49.0) L 09/07/23 03:56 Plt Count 214 thou/uL (152-406) 09/07/23 03:56 PT 10.7 SECONDS (9.5-12.5) 08/30/23 17:20 INR 0.97 08/30/23 17:20 APTT 18.7 SECONDS (24.3-36.9) L 08/30/23 17:20 Sodium 136 mEq/L (136-145) 09/07/23 03:56 Potassium 4.1 mEq/L (3.5-5.1) 09/07/23 03:56 BUN 16 mg/dL (7-18) 09/07/23 03:56 Creatinine 0.76 mg/dL (0.70-1.30) 09/07/23 03:56 Glucose 104 mg/dL (74-106) 09/07/23 03:56 Phosphorus 1.8 mg/dL (2.5-4.9) L 09/04/23 05:40 Total Bilirubin 0.4 mg/dL (0.2-1.0) 09/07/23 03:56 AST 17 U/L (15-37) 09/07/23 03:56 ALT 26 U/L (16-61) 09/07/23 03:56 Alkaline Phosphatase 53 U/L (45-117) 09/07/23 03:56 <Carol Chaudhary - Last Filed: 09/11/23 07:25> Vital Signs/Physical Exam: Temp Pulse Resp BP Pulse Ox 98.5 F 55 24 H 108/56 L 100 09/11/23 08:00 09/11/23 09:06 09/11/23 08:00 09/11/23 09:06 09/11/23 08:00 Laboratory Data at Discharge: WBC 5.20 thou/uL (4.3-10.9) 09/07/23 03:56 Hgb 9.7 g/dL (13.6-17.9) L D 09/07/23 03:56 Hct 28.0 % (39.6-49.0) L 09/07/23 03:56 Plt Count 214 thou/uL (152-406) 09/07/23 03:56 PT 10.7 SECONDS (9.5-12.5) 08/30/23 17:20 INR 0.97 08/30/23 17:20 APTT 18.7 SECONDS (24.3-36.9) L 08/30/23 17:20 Sodium 136 mEq/L (136-145) 09/07/23 03:56 Potassium 4.1 mEq/L (3.5-5.1) 09/07/23 03:56 BUN 16 mg/dL (7-18) 09/07/23 03:56 Creatinine 0.76 mg/dL (0.70-1.30) 09/07/23 03:56 Glucose 104 mg/dL (74-106) 09/07/23 03:56 Phosphorus 1.8 mg/dL (2.5-4.9) L 09/04/23 05:40 Total Bilirubin 0.4 mg/dL (0.2-1.0) 09/07/23 03:56 AST 17 U/L (15-37) 09/07/23 03:56 ALT 26 U/L (16-61) 09/07/23 03:56 Alkaline Phosphatase 53 U/L (45-117) 09/07/23 03:56 <Jodie Moon - Last Filed: 09/11/23 16:18> Activity: Fall precautions Time spent managing pt's care (in minutes): 55 <Carol Chaudhary - Last Filed: 09/11/23 07:25> <Jodie Moon - Last Filed: 09/11/23 16:18> Home Medications: Pantoprazole [Protonix Tab*] 40 mg PO DAILY #30 tab 07/21/18 Ascorbic Acid [Vitamin C*] 500 mg PO DAILY 10/06/22 Aspirin Chewable [Aspirin Chewable*] 81 mg PO DAILY 10/06/22 Atorvastatin Calcium [Lipitor*] 10 mg PO BEDTIME 10/06/22 Clopidogrel Bisulfate [Plavix*] 75 mg PO BEDTIME 10/06/22 Cyanocobalamin [Vitamin B-12*] 1,000 mcg PO DAILY 10/06/22 Losartan Potassium 25 mg PO DAILY 10/06/22 Melatonin/Pyridoxine [Melatonin 5 mg Tablet] 5 mg PO BEDTIME 10/06/22 Multivit,Ther Iron,Ca,FA & Min [Centrum Tablet*] 1 tab PO DAILY 10/06/22 Super Beta Prostate 1 tab PO BID 10/06/22 Finasteride [Proscar] 5 mg PO DAILY 08/23/23 Spironolactone 25 mg PO BEDTIME 08/23/23 Tamsulosin HCl [Flomax] 0.4 mg PO BEDTIME 08/23/23 carvediloL [Carvedilol] 6.25 mg PO BID 08/23/23 Furosemide [Lasix*] 20 mg PO DAILY #30 tab 08/25/23 predniSONE [Deltasone*] See Rx Instructions .ROUTE .COMPLEX #44 tab 08/25/23 Ensure Enlive 237 ml PO TIDWM can 09/11/23 Physician Discharge Instructions: 88-year-old male patient was medical history significant for hypertension, hyperlipidemia, coronary artery disease status post bypass graft surgery, history of achalasia and benign prostatic hypertrophy was evaluated for episode of weakness and suspicion for pneumonia. He reported extreme weakness and lethargy for the past couple of days and he also had issues with suspected aspiration while swallowing. He was evaluated with lab work that showed elevated white cell of 13 K and neutrophilia. He was asked to be evaluated for inpatient care because of suspicion for aspiration pneumonia. He denied overt episode of fever, chills, cough with sputum production. Physical Examination - Physical Exam General: Alert, Oriented x3 HEENT: Atraumatic Neck: Supple Respiratory: Normal air movement Cardiovascular: Regular rate/rhythm, Normal S1 S2 Gastrointestinal: Soft and benign Musculoskeletal: No swelling Neurological: Normal speech, Normal strength at 5/5 x4 extr Hospital Course: 88 year-old male patient presented with achalasia. Was noted to have aspiration pneumonia. Condition improved with IV antibiotics for aspiration pneumonia. Evaluated by speech therapy for dysphagia. Was evaluated by surgery with a 08/[address] Posadas patient tolerating diet, stable for discharge to the halfway with follow-up appointment with primary care physician, PROBLEM: Aspiration pneumonia Dysphagia Achalasia Thrombophlebitis ultrasound negative for DVT Discharge facility [facility], , Completed IV antibiotics while inpatient. Dietitian evaluation 08/31 notified for BMI < 18.5 Patient admitted with c/o weakness and suspicion for pneumonia. Per chart, he is s/p MBSS yesterday with recommendation of a minced & moist diet 1.) PO diet as determined by ST 3.) Monitor PO intake/EN tolerance and hydration 4. PEG tube not placed due to passing swallow study Speech therapy recommendation 08/30 Recommend Minced and Moist diet with thin liquids. Follow general swallow precautions. Barium swallow study 08/30 IMPRESSION: Flash laryngeal penetration. Cricopharyngeal bar seen on multiple swallows. No evidence of love aspiration. 09/05 Venous Doppler left upper extremity no evidence of DVT Continue home medicines as previously prescribed GOAL: Clear understanding of disease process INSTRUCTIONS: Physician Discharge Instructions: -Follow-up with PCP in 1 to 2 weeks -Please callif any questions regarding hospital stay -Please call nursing station at [phone] if any nursing or medication questions -Return to the emergency room if symptoms worsen Diet: ADA, low sodium Activity: Fall precautions Followup: NONE,NONE [UNKNOWN] - (Follow-up with PCP in 1 to 2 weeks)
[2023-09-11 09:07] VITALS: BP 108/56; TEMP 98.5
[2023-09-11 11:05] LABS: SARS-CoV-2 Antigen CONTROL BLUE LINE VIS/BG OK; SARS-CoV-2 Antigen Rapid Res Negative (Negative)
== END 2023-09-11 14:15 | DRG 177 ==
LOC: ER 17:05 → ERHOLD 20:34 → 4TH 22:37
PROVIDERS: ADMIT Internal Medicine Nephrology; ATTEND Hospitalist
PROC: 0DB78ZX Excision of Stomach, Pylorus, Via Natural or Artificial Opening Endoscopic, Diagnostic (ICD-10-PCS; 2023-09-01)
PROC: 0DB48ZX Excision of Esophagogastric Junction, Via Natural or Artificial Opening Endoscopic, Diagnostic (ICD-10-PCS; principal; 2023-09-01 16:00)
DX: J69.0 Pneumonitis due to inhalation of food and vomit (principal); J96.01 Acute respiratory failure with hypoxia; R64 Cachexia; Z68.1 Body mass index [BMI] 19.9 or less, adult; E46 Unspecified protein-calorie malnutrition; E86.0 Dehydration; I10 Essential (primary) hypertension; E78.5 Hyperlipidemia, unspecified; J84.10 Pulmonary fibrosis, unspecified; K22.0 Achalasia of cardia; E83.39 Other disorders of phosphorus metabolism; K20.90 Esophagitis, unspecified without bleeding; I80.9 Phlebitis and thrombophlebitis of unspecified site; K21.9 Gastro-esophageal reflux disease without esophagitis; N40.0 Benign prostatic hyperplasia without lower urinary tract symptoms; I25.10 Atherosclerotic heart disease of native coronary artery without angina pectoris; I25.2 Old myocardial infarction; R13.19 Other dysphagia; Z95.1 Presence of aortocoronary bypass graft; Z60.2 Problems related to living alone; Z11.52 Encounter for screening for COVID-19; Z79.82 Long term (current) use of aspirin; Z79.02 Long term (current) use of antithrombotics/antiplatelets; Z79.52 Long term (current) use of systemic steroids; Z79.899 Other long term (current) drug therapy; Z96.652 Presence of left artificial knee joint; Z96.641 Presence of right artificial hip joint
CPT/HCPCS: 36415; 71045; 74177; 74230; 80053; 80069; 81001; 82947; 83605; 84100; 85025; 85610; 85730; 87040; 87811; 88304; 88305; 88312; 92526; 92610; 92611; 93005; 93971; 96361; 96365; 96366; 96367; 96375; 97116; 97163; 97530; 99285; J0696; J1650; J2001; J2405; J2704; J2765; J7040; J7799; Q9967

== ENCOUNTER 2023-12-05 09:33 | Inpatient (IN) | payer MEDICARE, OTHER ==
[2023-12-05 10:10] LABS: Arterial Blood Carboxyhemoglob 0.8 % (0-1.5); Blood Gas Oxyhemoglobin 36.2 % (94-97); Blood Gas THB 12.1 g/dl (12-18); Blood O2 Saturation 37.1 % (92-98.5)
[2023-12-05 10:30] LABS: Absolute Lymphocytes (CBC) 1.1 K/uL (0.7-4.9); Absolute Monocytes 0.7 K/uL (0.1-1.3); Basophils % 0.6 % (0-1.3); Eosinophils % 0.7 % (0-4.4); Hematocrit 33.5 % (39.6-49.0); Hemoglobin 11.3 g/dL (13.6-17.9); Lymphocytes % 18.9 % (15.3-44.8); MCH 30.6 pg (27.0-35.0); MCHC 33.8 g/dL (32.0-36.0); MCV 90.4 fL (80-100); MPV 6.6 fL (7.6-11.3); Monocytes % 11.4 % (3.3-12.3); Neutrophils % 68.4 % (41.7-73.7); Nucleated Red Blood Cells % 0.1 % (0-0); Platelets 468 thou/uL (152-406); Red Cell Distribution Width 13.7 % (12.1-15.2)
[2023-12-05 10:32] LABS: PT Prothrombin Time 12.8 SECONDS (9.5-12.5); Protime INR 1.17
[2023-12-05 10:48] LABS: SARS-CoV-2 Antigen CONTROL BLUE LINE VIS/BG OK; SARS-CoV-2 Antigen Rapid Res Negative (Negative)
[2023-12-05 10:55] LABS: AST/SGOT 13 U/L (15-37); Albumin 2.9 g/dL (3.4-5.0); Albumin/Globulin Ratio 0.7 (1.1-1.8); Alkaline Phosphatase 108 U/L (45-117); Anion Gap 7.9 mEq/L (5.0-15.0); BUN Blood Urea Nitrogen 20 mg/dL (7-18); Bicarbonate 27 mEq/L (21-32); Bilirubin Direct 0.2 mg/dL (0-0.2); Bilirubin Indirect, Calculated 0.6 mg/dL (0.2-0.8); Bilirubin Total 0.8 mg/dL (0.2-1.0); Globulin 4.1 g/dL (2.3-3.5); Glomerular Filtration Rate 86 ml/min (=/>90); Glucose Level 106 mg/dL (74-106); Magnesium 1.7 mg/dL (1.6-2.4); NT PRO-BNP 2862 pg/mL (<450); Potassium 3.9 mEq/L (3.5-5.1); Sodium Level 135 mEq/L (136-145); Troponin High Sensitivity 11.6 pg/mL (<58.9)
--- NOTE | 2023-12-05 11:01 | RAD REPORT ---
EXAM DESCRIPTION: Joselyn Single View12/05/2023 10:43 am CLINICAL HISTORY: Shortness of breath COMPARISON: August 2023 FINDINGS: Moderate bilateral interstitial predominantly upper lobe opacities without significant magy nge. No acute abnormality is displayed Heart is mildly enlarged. Postsurgical changes involve chest IMPRESSION: No acute abnormalities displayed
[2023-12-05 11:03] LABS: ALT/SGPT < 14 U/L (16-61)
--- NOTE | 2023-12-05 11:14 | EDPHYS ---
Physician Documentation [facility] Name: Bereket Kennedy Age: 88 yrs Sex: Male : 1935 Arrival Date: 12/05/2023 Time: 09:33 Bed 6 Private MD: ED Physician Vinicio Miller HPI: 12/04 09:49 This 88 yrs old Male presents to ER via Unassigned with complaints of Shortness Of sp3 Breath. 09:49 88-year-old male with a history of myocardial infarction, hypertension sent over from [facility] Dr. Oswald's office for chief complaint shortness of breath over the last 2 to 3 days increasing in nature. Patient also reports mild pedal edema. He denies fever, cough, chest pain, back pain, abdominal pain, syncope, near syncope, vomiting, diarrhea, rash, known sick contacts, travel history, prolonged immobilization, recent changes in medication, or any other signs or symptoms on ROS at this time.. Historical: - Allergies: 09:57 No Known Allergies; ll1 - PMHx: 09:57 Cardiomegly; Fluid on left [place]; Hypertensive disorder; Myocardial infarction; ll1 - PSHx: 09:57 cardiac bypass; esophageal sx; ll1 - Immunization history:: Adult Immunizations up to date. - Infectious Disease History:: Denies. - Social history:: Smoking status: Patient denies any tobacco usage or history of. ROS: 09:50 Constitutional: Negative for fever, chills, and weight loss, Eyes: Negative for injury, sp3 pain, redness, and discharge, ENT: Negative for injury, pain, and discharge, Neck: Negative for injury, pain, and swelling, Cardiovascular: Negative for chest pain, palpitations, and edema, Abdomen/GI: Negative for abdominal pain, nausea, vomiting, diarrhea, and constipation, Back: Negative for injury and pain, MS/Extremity: Negative for injury and deformity, Skin: Negative for injury, rash, and discoloration, Neuro: Negative for headache, weakness, numbness, tingling, and seizure, Psych: Negative for depression, anxiety, suicide ideation, homicidal ideation, and hallucinations, Allergy/Immunology: Negative for hives, rash, and allergies, Endocrine: Negative for neck swelling, polydipsia, polyuria, polyphagia, and marked weight changes, 09:50 All other systems are negative, Exam: 09:50 Constitutional: This is a well developed, well nourished patient who is awake, alert, sp3 and in no acute distress. Head/Face: Normocephalic, atraumatic. Eyes: Pupils equal round and reactive to light, extra-ocular motions intact. Lids and lashes normal. Conjunctiva and sclera are non-icteric and not injected. Cornea within normal limits. Periorbital areas with no swelling, redness, or edema. Neck: Trachea midline, no thyromegaly or masses palpated, and no cervical lymphadenopathy. Supple, full range of motion without nuchal rigidity, or vertebral point tenderness. No Meningismus. Chest/axilla: Normal chest wall appearance and motion. Nontender with no deformity. No lesions are appreciated. Cardiovascular: Regular rate and rhythm with a normal S1 and S2. No gallops, murmurs, or rubs. Normal PMI, no JVD. No pulse deficits. Abdomen/GI: Soft, non-tender, with normal bowel sounds. No distension or tympany. No guarding or rebound. No evidence of tenderness throughout. Back: No spinal tenderness. No costovertebral tenderness. Full range of motion. Skin: Warm, dry with normal turgor. Normal color with no rashes, no lesions, and no evidence of cellulitis. Neuro: Awake and alert, GCS 15, oriented to person, place, time, and situation. Cranial nerves II-XII grossly intact. Motor strength 5/5 in all extremities. Sensory grossly intact. Cerebellar exam normal. Normal gait. Psych: Awake, alert, with orientation to person, place and time. Behavior, mood, and affect are within normal limits. 09:50 Respiratory: Labored breathing tachypneic at 26 to 30 breaths/min. Mild Rales noted inferior lobes., 09:51 Musculoskeletal/extremity: Pedal edema 2+ bilaterally pitting in nature. sp3 10:28 ECG was reviewed by the Attending Physician. EKG demonstrates normal sinus rhythm at 77 sp3 bpm with normal intervals except for QTc of 527 and right bundle branch block and nonspecific diffuse ST's ST changes without evidence of acute ischemia. Vital Signs: 09:32 BP 150 / 83; Pulse 72; Resp 36; Pulse Ox 100% on 2 lpm NC; db 09:57 BP 150 / 83; Pulse 73; Resp 42; Temp 97.9; Pulse Ox 95% on R/A; Weight 58.06 kg; ap3 10:00 BP 156 / 79; Pulse 64; Resp 38; Pulse Ox 100% on 2 lpm NC; db 11:30 BP 166 / 69; Pulse 62; Resp 40; Pulse Ox 96% on 2 lpm NC; db MDM: 09:44 Patient medically screened. sp3 09:51 Data reviewed: vital signs, nurses notes, old medical records, lab test result(s), EKG, sp3 radiologic studies. ED course: 88-year-old male with dyspnea with PMH above. Differential diagnosis includes acute coronary syndrome, CHF exacerbation, pneumonia, other viral illness, among others. Workup will include EKG, chest x-ray, laboratory values and general supportive care with probable admission.. 12/04 09:44 Order name: Basic Metabolic Panel; Complete Time: 11:04 3 12/04 09:44 Order name: CBC with Diff; Complete Time: 11:03 3 12/04 09:44 Order name: LFT's; Complete Time: 11:04 sp3 12/04 09:44 Order name: Magnesium; Complete Time: 11:04 sp3 12/04 09:44 Order name: NT PRO-BNP; Complete Time: 11:04 3 12/04 09:44 Order name: PT-INR; Complete Time: 11:03 sp3 12/04 09:44 Order name: Troponin HS; Complete Time: 11:04 sp3 12/04 09:44 Order name: ABG: VBG; Complete Time: 11:03 3 12/04 09:52 Order name: Blood Culture Adult (2) sp3 12/04 09:52 Order name: Flu; Complete Time: 11:03 sp3 12/04 09:52 Order name: SARS RAPID; Complete Time: 11:03 3 12/04 10:14 Order name: Lactate w/ 2H reflex if indic.; Complete Time: 11:03 3 12/04 11:26 Order name: Urinalysis w/ reflexes EDAZ 12/04 09:44 Order name: XRAY Chest (1 view); Complete Time: 11:03 3 12/04 11:24 Order name: CONS Physician Consult EDAZ 12/04 09:44 Order name: Cardiac monitoring; Complete Time: 10:16 sp3 12/04 09:44 Order name: EKG - Nurse/Tech; Complete Time: 10:16 sp3 12/04 09:44 Order name: IV Saline Lock; Complete Time: 10:16 sp3 12/04 09:44 Order name: Labs collected and sent; Complete Time: 10:16 sp3 12/04 09:44 Order name: O2 Per Protocol; Complete Time: 10:16 sp3 12/04 09:44 Order name: O2 Sat Monitoring; Complete Time: 10:16 sp3 Administered Medications: 11:30 Drug: Furosemide IVP 40 mg IVP once; give over 2 minutes Route: IVP; Site: right db forearm; Disposition Summary: 12/05/23 11:14 Hospitalization Ordered Notes: Hospitalization Status: Inpatient Admission sp3 Provider: Terrence Singh3 Location: Telemetry/MedSurg (Inpatient) sp3 Condition: Stable sp3 Problem: an acute exacerbation sp3 Symptoms: have worsened sp3 Bed/Room Type: Standard sp3 Room Assignment: 218(12/05/23 11:29) bd Diagnosis - CHF exacerbation sp3 Forms: - Medication Reconciliation Form sp3 - SBAR form sp3 - Leadership Thank You Letter sp3 Signatures: Dispatcher [employer] EDMS Janneth Ponce Amanda, RN RN ap3 Julee Bond RN RN ll1 Vinicio Miller MD MD sp3 Ame Lowry RN RN db Corrections: (The following items were deleted from the chart) 09:45 09:45 BASIC METABOLIC PANEL+C.LAB.BRZ ordered. EDMS EDMS 09:45 09:45 CBC+H.LAB.BRZ ordered. EDMS EDMS 09:45 09:45 HEPATIC FUNCTION+C.LAB.BRZ ordered. EDMS EDMS 09:45 09:45 MAGNESIUM+C.LAB.BRZ ordered. EDMS EDMS 09:45 09:45 PROBNP+C.LAB.BRZ ordered. EDMS EDMS 09:45 09:45 PROTIME (+INR)+COAG.LAB.BRZ ordered. EDMS EDMS 09:45 09:45 Troponin High Sensitivity+C.LAB.BRZ ordered. EDMS EDMS 09:45 09:45 Chest Single View+RAD.RAD.BRZ ordered. EDMS EDMS 09:45 09:45 Arterial Blood Gas+RC.LAB.BRZ ordered. EDMS EDMS 10:14 10:14 LACTATE+C.LAB.BRZ ordered. EDMS EDMS 11:29 11:14 sp3 bd
--- NOTE | 2023-12-05 11:14 | ER ---
Nurse's Notes [facility] Name: Bereket Kennedy Age: 88 yrs Sex: Male : 1935 Arrival Date: 12/05/2023 Time: 09:33 Bed 6 Private MD: Diagnosis: CHF exacerbation Presentation: 12/04 09:57 Chief complaint: Patient states: he was sent from dr. temple office for continued ap3 shortness of breath. patient states his shortness of breath has gotten worse over the last couple of weeks and gets worse on ambulation. Coronavirus screen: At this time, the client does not indicate any symptoms associated with coronavirus-19. Ebola Screen: No symptoms or risks identified at this time. Initial Sepsis Screen: Does the patient meet any 2 criteria? RR > 20 per min. Does the patient have a suspected source of infection? No. Patient's initial sepsis screen is negative. Risk Assessment: Do you want to hurt yourself or someone else? Patient reports no desire to harm self or others. Onset of symptoms is unknown. 09:57 Method Of Arrival: Wheelchair ap3 09:57 Acuity: CARMELINA 2 ap3 Triage Assessment: 09:59 General: Appears distressed, Behavior is calm, cooperative, appropriate for age. Pain: ap3 Denies pain. Neuro: Level of Consciousness is awake, alert, obeys commands, Oriented to person, place, time, situation, Speech is normal. Cardiovascular: Patient's skin is warm and dry. Respiratory: Reports shortness of breath at rest on exertion Airway is patent Respiratory effort is even, labored, Respiratory pattern is regular, tachypnea Onset: The symptoms/episode began/occurred gradually, the patient has moderate shortness of breath. Historical: - Allergies: 09:57 No Known Allergies; ll1 - PMHx: 09:57 Cardiomegly; Fluid on left [place]; Hypertensive disorder; Myocardial infarction; ll1 - PSHx: :57 cardiac bypass; esophageal sx; ll1 - Immunization history:: Adult Immunizations up to date. - Infectious Disease History:: Denies. - Social history:: Smoking status: Patient denies any tobacco usage or history of. Screenin:00 Abuse screen: Denies threats or abuse. Nutritional screening: No deficits noted. ap3 Tuberculosis screening: No symptoms or risk factors identified. 12:07 [facility] ED Fall Risk Assessment (Adult) History of falling in the last 3 months, db including since admission No falls in past 3 months (0 pts) Confusion or Disorientation No (0 pts) Intoxicated or Sedated No (0 pts) Impaired Gait No (0 pts) Mobility Assist Device Used Yes (1 pt) Altered Elimination No (0 pt) Score/Fall Risk Level 0 - 2 = Low Risk Oriented to surroundings, Maintained a safe environment. Assessment: 10:37 Reassessment: Patient appears in no apparent distress at this time. Patient and/or db family updated on plan of care and expected duration. Pain level reassessed. Patient is alert, oriented x 3, equal unlabored respirations, skin warm/dry/pink. Patient states feeling better. Patient states symptoms have improved. General: Appears in no apparent distress. comfortable, Behavior is calm, cooperative. 11:46 Reassessment: Patient appears in no apparent distress at this time. Patient and/or db family updated on plan of care and expected duration. Pain level reassessed. Patient is alert, oriented x 3, equal unlabored respirations, skin warm/dry/pink. General: Appears in no apparent distress. comfortable, Behavior is calm, cooperative. Pain: Denies pain. Neuro: Level of Consciousness is awake, alert, obeys commands, Oriented to person, place, time, situation. Cardiovascular: Capillary refill < 3 seconds Rhythm is regular. Respiratory: Airway is patent Respiratory effort is even, unlabored, Respiratory pattern is regular, symmetrical, Breath sounds are clear. 12:07 Reassessment: Patient appears in no apparent distress at this time. Patient and/or db family updated on plan of care and expected duration. Pain level reassessed. Patient is alert, oriented x 3, equal unlabored respirations, skin warm/dry/pink. Patient states feeling better. Vital Signs: 09:32 BP 150 / 83; Pulse 72; Resp 36; Pulse Ox 100% on 2 lpm NC; db 09:57 BP 150 / 83; Pulse 73; Resp 42; Temp 97.9; Pulse Ox 95% on R/A; Weight 58.06 kg; ap3 10:00 BP 156 / 79; Pulse 64; Resp 38; Pulse Ox 100% on 2 lpm NC; db 11:30 BP 166 / 69; Pulse 62; Resp 40; Pulse Ox 96% on 2 lpm NC; db ED Course: 09:35 Patient arrived in ED. mr 09:35 Initial lab(s) drawn, by me, sent to lab. EKG done, by ED staff, reviewed by Vinicio Miller MD. Inserted saline lock: 22 gauge in right forearm, using aseptic technique. Blood collected. 09:38 Ame Lowry, RN is Primary Nurse. db 09:38 Arm band placed on Patient placed in an exam room, on a stretcher. ll1 09:39 Vinicio Miller MD is Attending Physician. sp3 09:59 Triage completed. ap3 10:45 XRAY Chest (1 view) In Process Unspecified. EDMS 11:13 Terrence Singh MD is Hospitalizing Provider. sp3 12:06 Patient has correct armband on for positive identification. Placed in gown. Bed in low db position. Call light in reach. Side rails up X 1. Provided Education on: ADMISSION. Client placed on continuous cardiac and pulse oximetry monitoring. NIBP monitoring applied. classroom monitor on. Pulse ox on. NIBP on. Door closed. Lights dimmed. Warm blanket given. Pillow given. 12:07 No provider procedures requiring assistance completed. Patient admitted, IV remains in db place. Administered Medications: 11:30 Drug: Furosemide IVP 40 mg IVP once; give over 2 minutes Route: IVP; Site: right db forearm; Medication: 12:06 VIS not applicable for this client. db Outcome: 11:14 Decision to Hospitalize by Provider. sp3 12:07 Admitted to ER Hold. Please see [facility] for further documentation. db 12:07 Condition: stable 12:07 Instructed on the need for admit, 12:53 Patient left the ED. ll1 Signatures: Dispatcher [employer] EDOK Arminda Brown, Reg Reg mr MelofiordalizaAdele, RN RN ap3 Julee Bond RN RN ll1 Vinicio Miller MD MD sp3 Ame Lowry, ITA JEAN BAPTISTE db Corrections: (The following items were deleted from the chart) 10:39 10:00 BP 156 / 79; Pulse 64bpm; Resp 18bpm; Pulse Ox 100% RA; db db 12:04 10:00 BP 156 / 79; Pulse 64bpm; Resp 18bpm; Pulse Ox 100% 2 lpm Nasal Cannula; db db 12:04 11:30 BP 166 / 69; Pulse 62bpm; Resp 16bpm; Pulse Ox 96% RA; db db
[2023-12-05] MEDS ORDERED: FUROSEMIDE 40 MG/4 ML VIAL ONE (11:33)
--- NOTE | 2023-12-05 12:23 | P.HP ---
Certification for Inpatient Patient admitted to: Observation With expected LOS: <2 Midnights Patient will require the following post-hospital care: Home Health Services Practitioner: I am a practitioner with admitting privileges, knowledge of patient current condition, hospital course, and medical plan of care. Services: Services provided to patient in accordance with Admission requirements found in Title 42 Section 412.3 of the Code of Federal Regulations Patient History Date of Service: 12/05/23 Reason for admission: Shortness of breath History of Present Illness: 88 yrs old Male Cardiomegly; Fluid on left lung; Hypertensive disorder; Myocardial infarction presents to the emergency room for shortness of breath. He reports being sent over from Dr. Oswald's office for chief complaint shortness of breath over the last 2 to 3 days that is getting progressively worse. he reports lower extermity swelling. He denies chest pain, fever, NVD, He denies use of home 02. Plan to admit for - CHF exacerbation, with cardiology to consult. treated with : Furosemide IVP 40 mg IVP once; BP 150 / 83; Pulse 72; Resp 36; Pulse Ox 100% on 2 lpm NC; EKG normal sinus rhythm at 77 bpm with normal intervals except for QTc of 527 and right bundle branch block and nonspecific diffuse ST's ST changes without evidence of acut ischemia.Lab BNP 2862, troponin 11.6, HH 11.3/33.5, plts 468, CXR FINDINGS: Moderate bilateral interstitial predominantly upper lobe opacities without significant change. No acute abnormality is displayed Heart is mildly enlarged. Postsurgical changes involve chest. IMPRESSION: No acute abnormalities displayed Allergies No Known Allergies Allergy (Verified 07/20/18 03:50) Home Medications: Pantoprazole [Protonix Tab*] 40 mg PO DAILY #30 tab 07/21/18 Ascorbic Acid [Vitamin C*] 500 mg PO DAILY 10/06/22 Aspirin Chewable [Aspirin Chewable*] 81 mg PO DAILY 10/06/22 Atorvastatin Calcium [Lipitor*] 10 mg PO BEDTIME 10/06/22 Clopidogrel Bisulfate [Plavix*] 75 mg PO BEDTIME 10/06/22 Cyanocobalamin [Vitamin B-12*] 1,000 mcg PO DAILY 10/06/22 Losartan Potassium 25 mg PO DAILY 10/06/22 Melatonin/Pyridoxine [Melatonin 5 mg Tablet] 5 mg PO BEDTIME 10/06/22 Multivit,Ther Iron,Ca,FA & Min [Centrum Tablet*] 1 tab PO DAILY 10/06/22 Super Beta Prostate 1 tab PO BID 10/06/22 Finasteride [Proscar] 5 mg PO DAILY 08/23/23 Spironolactone 25 mg PO BEDTIME 08/23/23 Tamsulosin HCl [Flomax] 0.4 mg PO BEDTIME 08/23/23 carvediloL [Carvedilol] 6.25 mg PO BID 08/23/23 Furosemide [Lasix*] 20 mg PO DAILY #30 tab 08/25/23 predniSONE [Deltasone*] See Rx Instructions .ROUTE .COMPLEX #44 tab 08/25/23 Ensure Enlive 237 ml PO TIDWM can 09/11/23 - Past Medical/Surgical History Diabetic: No -: Achalasia -: CAD with previous CABG -: Hypertension -: Hyperlipidemia -: Bowel obstruction -: tonsils removed -: finger tendon repair -: total left knee replacement- 2000 -: left rotator cuff repair -: cataract sx- both eyes -: right hip replacement october 2012 -: esophagus sx -2012 Psychosocial/ Personal History: Patient lives at home, alone. - Family History Father -: Lung disease - Social History Alcohol use: No CD- Drugs: No Caffeine use: No Review of Systems per HPI Physical Examination - Physical Exam General: Alert, In no apparent distress, Oriented x3 HEENT: Atraumatic, Normocephalic Neck: Supple, 2+ carotid pulse no bruit Respiratory: Normal air movement, Crackles/rales Cardiovascular: Normal pulses, Regular rate/rhythm, Edema (+2 BLE ) Capillary refill: <2 Seconds Gastrointestinal: Normal bowel sounds, Soft and benign Musculoskeletal: No clubbing, No swelling Integumentary: No breakdown, No significant lesion Neurological: Normal speech, Normal strength at 5/5 x4 extr - Studies Laboratory Data (last 24 hrs) 12/05/23 12/05/23 12/05/23 10:10 10:10 10:10 WBC 5.90 Hgb 11.3 L Hct 33.5 L Plt Count 468 H PT 12.8 H INR 1.17 Sodium 135 L Potassium 3.9 BUN 20 H Creatinine 0.79 Glucose 106 Magnesium 1.7 Total Bilirubin 0.8 AST 13 L ALT < 14 L Alkaline Phosphatase 108 Microbiology Data (last 24 hrs): 12/05/23 09:59 Nasopharnyx Influenza Type A Antigen Screen - Final 12/05/23 09:59 Nasopharnyx Influenza Type B Antigen Screen - Final Assessment and Plan - Plan Assessment/Plan Acute on chronic heart failure unknown baseline Acute hypoxic respiratory failure secondary to decompensated heart failure Cardiology consult, telemetry, Trend troponins, trend BMP, presents to the emergency room for shortness of breath. He reports being sent over from Dr. Oswald's office for chief complaint shortness of breath over the last 2 to 3 days that is getting progressively worse. he reports lower extermity swelling. He denies chest pain, fever, NVD, He denies use of home 02. treated with : Furosemide IVP 40 mg IVP once; BP 150 / 83; Pulse 72; Resp 36; Pulse Ox 100% on 2 lpm NC; EKG normal sinus rhythm at 77 bpm with normal intervals except for QTc of 527 and right bundle branch block and nonspecific diffuse ST's ST changes without evidence of acut ischemia.Lab BNP 2862, troponin 11.6, HH 11.3/33.5, plts 468, CXR FINDINGS: Moderate bilateral interstitial predominantly upper lobe opacities without significant change. No acute abnormality is displayed Heart is mildly enlarged. Postsurgical changes involve chest. IMPRESSION: No acute abnormalities displayed Azithromycin, as needed albuterol neb Echo ordered Cardiomegly History fluid on left lung Hypertensive disorder Myocardial infarction Resume appropriate home meds Full code DVT Diet cardiac Disposition Home independent prior Discharge Plan: Home - Advance Directives Does patient have a Living Will: Yes Does patient have a Durable POA for Healthcare: No - Code Status/Comfort Care Code Status: Full Code Critical Care: No Time Spent Managing Pts Care (In Minutes): 55
[2023-12-05] MEDS ORDERED: ALBUTEROL 2.5 MG/3 ML NEB SOL NEB PRN (13:29)
[2023-12-05 13:35] VITALS: BMI 19.0
[2023-12-05] MEDS ORDERED: LABETALOL 20 MG/4ML SYRINGE IV PRN (13:37)
[2023-12-05] MEDS ORDERED: carvediloL 6.25 MG TAB PO SCH ×2 (14:00→21:00)
[2023-12-05] MEDS: AZITHROMYCIN IV 500 MG in NA CHLORIDE 0.9% 250 ML IVPB SCH (14:06)
[2023-12-05] MEDS: FUROSEMIDE 40 MG/4 ML VIAL IV ONE (14:47)
[2023-12-05 14:55] LABS: Specific Gravity 1.007 (1.005-1.030); Sqamous Epithelial <5 /HPF (None Seen); Urine Bacteria None Seen /HPF (<20); Urine Bilirubin NEGATIVE (Negative); Urine Blood Negative (Negative); Urine Clarity Clear (Clear); Urine Color Colorless (Yellow); Urine Culture Reflex Order NOT NEEDED; Urine Glucose NEGATIVE (Negative); Urine Ketones NEGATIVE (Negative); Urine Microscopic Reflex YN ORDER UMIC; Urine Mucus Slight /HPF (None Seen); Urine Nitrite NEGATIVE (Negative); Urine Protein NEGATIVE (Negative); Urine RBC <5 /HPF (None Seen); Urine Urobilinogen Normal (Normal); Urine WBC <5 /HPF (<5); Urine pH 6.5 (5.0-7.0)
--- NOTE | 2023-12-05 20:08 | CON ---
Date of Consultation: 12/05/2023 Reason For Consultation: CHF exacerbation. History Of Present Illness: An 88-year-old male, past medical history of coronary artery disease, pr evious CABG, hypertension, dyslipidemia, congestive heart failure, presented to the emergency room wi th shortness of breath, sent from Dr. Oswald's office due to difficulty breathing and it is progres sively getting worse. Reports some lower extremity edema as well. No orthopnea. No nausea, vomitin g, or diarrhea. Minimal cough is present and was admitted and I was consulted to evaluate for presen ce of CHF. Denies having any chest pain. He follows up with a process development manager at [place] on a regular basis. Past Medical History: Coronary artery disease, hypertension, dyslipidemia. Medications: Refer reconciliation sheet for detailed list. Allergies: NO KNOWN DRUG ALLERGIES. Past Surgical History: CABG, he had total knee replacement, rotator cuff surgery, cataract surgery, right hip replacement. Family History: No premature coronary artery disease or cancer. Social History: Does not smoke or drink. Does not use any drugs. Review of Systems: All systems were reviewed and they were negative except as mentioned in HPI. Physical Examination: Vital Signs: Reviewed. Head and Neck: Pupils are equal, reactive to light. Intact eye movements. No JVD. No cervical lym phadenopathy. Neck is supple. Thyroid is not enlarged. Lungs: Clear to auscultation bilaterally with decreased breathing sounds. No accessory muscle use o r muscle retraction. Heart: Regular rate and rhythm. No extra sounds. Abdomen: Soft, nontender. Bowel sounds positive. No organomegaly. No masses or hernia. No rigidi ty or rebound. Extremities: No edema, clubbing, cyanosis. Intact pulses. Skin: No rash. No nodule. Neurologic: Alert, awake, oriented x3. No acute focal deficits appreciated. Lymph Nodes: No cervical or axillary lymphadenopathy. Investigations: NT-proBNP is 2862, and troponin is negative and hemoglobin is 11.3. Chest x-ray chetan wed no acute abnormality. Assessment And Plan: 1.Shortness of breath and elevated NT-proBNP. This could be in part due to heart failure, but the p atient clinically does not get grossly overloaded. He does have diastolic dysfunction. I recommend low-dose Lasix at 20 mg IV q.12 hours. Monitor carefully BUN, creatinine, electrolytes, and see his response to that. If no improvement, then recommendation would be for an evaluation for possible CLOTH FRAMER D and bronchitis. 2.Dyslipidemia. Continue Lipitor. 3.Hypertension. Blood pressure is elevated. Resume his home medications and adjust as needed. If he is not on any medicines, then I recommend losartan 25 mg daily to start off and titrate as needed. 4.Coronary artery disease. No active chest pain. Cardiac enzymes are negative. He is having signi ficant shortness of breath. I recommend to do a Lexiscan nuclear stress test to rule out ischemia as a cause of his shortness of breath as well. 5.Anemia, mild. This is to be monitored. /GABRIELLE Voice ID: [id number] Report ID: [id number]
[2023-12-05] MEDS: TAMSULOSIN 0.4 MG SR CAP PO SCH (21:00)
[2023-12-05] MEDS: MELATONIN PO SCH (21:00)
[2023-12-05] MEDS: PYRIDOXINE PO SCH (21:00)
[2023-12-05] MEDS: ATORVASTATIN 10 MG TAB PO SCH (21:00)
[2023-12-06] MEDS: PANTOPRAZOLE 40MG TABLET PO SCH (05:57)
--- NOTE | 2023-12-06 08:50 | P.PN ---
Subjective Date of Service: 12/07/23 Chief Complaint: Shortness of breath 88 years of age with a history of chronic pulmonary fibrosis was seen in my office complaining of worsening dyspnea Admitted with acute congestive heart failure, acute hypoxia, Elevated BNP, echo ordered, cardiology consult ordered 96% on 2 L, with aggressive diuresis - Physical Exam General: Alert, In no apparent distress, Oriented x3 HEENT: Atraumatic, Normocephalic Neck: Supple, 2+ carotid pulse no bruit Respiratory: Normal air movement, Crackles/rales Cardiovascular: Normal pulses, Regular rate/rhythm, Edema (+2 BLE ) Capillary refill: <2 Seconds Gastrointestinal: Normal bowel sounds, Soft and benign Musculoskeletal: No clubbing, No swelling Integumentary: No breakdown, No significant lesion Neurological: Normal speech, Normal strength at 5/5 x4 extr Review of Systems per HPI Physical Examination - Vital Signs Temperature: 98.0 F Blood Pressure: 139/74 Pulse: 62 Respirations: 16 Pulse Ox (%): 95 - Studies Laboratory Data (last 24 hrs) 12/05/23 12/05/23 12/05/23 10:10 10:10 10:10 WBC 5.90 Hgb 11.3 L Hct 33.5 L Plt Count 468 H PT 12.8 H INR 1.17 Sodium 135 L Potassium 3.9 BUN 20 H Creatinine 0.79 Glucose 106 Magnesium 1.7 Total Bilirubin 0.8 AST 13 L ALT < 14 L Alkaline Phosphatase 108 Microbiology Data (last 24 hrs): 12/05/23 09:59 Nasopharnyx Influenza Type A Antigen Screen - Final 12/05/23 09:59 Nasopharnyx Influenza Type B Antigen Screen - Final Assessment And Plan - Plan Assessment/Plan Acute on chronic heart failure unknown baseline Acute hypoxic respiratory failure secondary to decompensated heart failure Pulmonary fibrosis Cardiology consult, telemetry, Trend troponins, trend BMP, presents to the emergency room for shortness of breath. He reports being sent over from Dr. Oswald's office for chief complaint shortness of breath over the last 2 to 3 days that is getting progressively worse. he reports lower extermity swelling. He denies chest pain, fever, NVD, He denies use of home 02. treated with : Furosemide IVP 40 mg IVP once; BP 150 / 83; Pulse 72; Resp 36; Pulse Ox 100% on 2 lpm NC; EKG normal sinus rhythm at 77 bpm with normal intervals except for QTc of 527 and right bundle branch block and nonspecific diffuse ST's ST changes without evidence of acut ischemia.Lab BNP 2862, troponin 11.6, HH 11.3/33.5, plts 468, CXR FINDINGS: Moderate bilateral interstitial predominantly upper lobe opacities without significant change. No acute abnormality is displayed Heart is mildly enlarged. Postsurgical changes involve chest. IMPRESSION: No acute abnormalities displayed Azithromycin, as needed albuterol neb Echo ordered Cardiomegly History fluid on left lung Hypertensive disorder Myocardial infarction Resume appropriate home meds Full code DVT Diet cardiac Disposition Home independent prior Discharge Plan: Home Critical Care: No Time Spent Managing PTS Care (In Minutes): 35
[2023-12-06] MEDS: ASPIRIN 81 MG CHEWABLE TABLET PO SCH (08:57)
[2023-12-06] MEDS: SPIRONOLACTONE 25 MG TABLET PO SCH (08:57)
[2023-12-06] MEDS: predniSONE 20 MG TAB PO SCH (08:57)
[2023-12-06] MEDS: FUROSEMIDE 20 MG TABLET PO SCH (09:04)
--- NOTE | 2023-12-06 10:19 | P.PN ---
Subjective Date of Service: 12/06/23 Chief Complaint: Shortness of breath Subjective: No new changes (feels better today), No C/O voiced, Tolerating diet, Ambulating, Improving Review of Systems 10-point ROS is otherwise unremarkable Physical Examination - Vital Signs Temperature: 98.0 F Blood Pressure: 139/74 Pulse: 62 Respirations: 16 Pulse Ox (%): 95 - Physical Exam General: Alert, In no apparent distress HEENT: Atraumatic, PERRLA, EOMI Neck: Supple, JVD not distended Respiratory: Clear to auscultation bilaterally, Normal air movement Cardiovascular: Regular rate/rhythm, Normal S1 S2 Gastrointestinal: Normal bowel sounds, No tenderness Musculoskeletal: No tenderness Integumentary: No rashes Neurological: Normal speech, Normal tone, Normal affect Lymphatics: No axilla or inguinal lymphadenopathy - Studies Laboratory Data (last 24 hrs) 12/05/23 12/05/23 12/05/23 10:10 10:10 10:10 WBC 5.90 Hgb 11.3 L Hct 33.5 L Plt Count 468 H PT 12.8 H INR 1.17 Sodium 135 L Potassium 3.9 BUN 20 H Creatinine 0.79 Glucose 106 Magnesium 1.7 Total Bilirubin 0.8 AST 13 L ALT < 14 L Alkaline Phosphatase 108 Microbiology Data (last 24 hrs): 12/05/23 09:59 Nasopharnyx Influenza Type A Antigen Screen - Final 12/05/23 09:59 Nasopharnyx Influenza Type B Antigen Screen - Final Medications List Reviewed: Yes Assessment And Plan - Current Problems (Diagnosis) (1) Acute on chronic diastolic heart failure Current Visit: Yes Status: Acute Plan: Patient got grade 2 DD, looks euvolemic on exam, diuresed well overnight. continue Aldactone 25 mg daily switch Lasix to 20 mg daily on discharge. monitor input and output and electrolytes. (2) CAD (coronary artery disease) of artery bypass graft Current Visit: Yes Status: Acute Plan: history of CABG almost 15 years ago, no chest pain and troponin are negative. continue ASA 81 mg daily patient will need outpatient stress test which can be done through his outpatient box shook patcher. (3) HLD (hyperlipidemia) Current Visit: Yes Status: Acute Plan: continue lipitor 10 mg daily lipid panel in 3 months.
--- NOTE | 2023-12-06 12:11 | ECHO ---
HEIGHT: 5 ft 9 in WEIGHT: 128 lb 0 oz DATE OF STUDY: 12/06/[address]: Carol Chaudhary PLANT CONTROL OPERATOR-Rony 2-DIMENSIONAL: YES M.MODE: YES DOPPLER: YES COLOR FLOW: YES TDS: PORTABLE: YES DEFINITY: BUBBLE STUDY: DIAGNOSIS: SHORTNESS OF BREATH, CONGESTIVE HEART FAILURE EXACERBATION CARDIAC HISTORY: CATHERIZATION: YES SURGERY: YES PROSTHETIC VALVE: NO PACEMAKER: NO MEASUREMENTS (cm) DIASTOLIC (NORMALS) SYSTOLIC (NORMALS) IVSd 1.0 (0.6-1.2) LA Diam 2.3 (1.9-4.0) LVEF 60-65% LVIDd 2.6 (3.5-5.7) LVIDs 2.0 (2.0-3.5) %FS 24% LVPWd 1.0 (0.6-1.2) Ao Diam 3.0 (2.0-3.7) 2 DIMENSIONAL ASSESSMENT: RIGHT ATRIUM: NORMAL LEFT ATRIUM: MILD DILATED RIGHT VENTRICLE: NORAML LEFT VENTRICLE: MILD LEFT VENTRICULAR HYPERTROPHY TRICUSPID VALVE: TRACE TRICUSPID REGURGITATION MITRAL VALVE: TRACE MITRAL REGURGITATION PULMONIC VALVE: NORMAL AORTIC VALVE: NORMAL PERICARDIAL EFFUSION: NONE AORTIC ROOT: NORMAL LEFT VENTRICULAR WALL MOTION: NORMAL DOPPLER/COLOR FLOW: GRADE I DIASTOLIC DYSFUNCTION COMMENTS: 1. NORMAL LEFT VENTRICULAR SYSTOLIC FUNCTION, EJECTION FRACTION 60-65%, NORMAL WALL MOTION 2. GRADE I DIASTOLIC DYSFUNCTION 3. INFERIOR VENA CAVA NOT WELL VISUALIZED TECHNOLOGIST: LORENA BROWNE
--- NOTE | 2023-12-06 12:33 | P.PN ---
Subjective Date of Service: 12/06/23 Chief Complaint: Shortness of breath Patient is 88 years of age with a history of chronic pulmonary fibrosis was seen in my office complaining of worsening dyspnea and came to the hospital feels a little better with diuretics otherwise no change no fever or chills Review of Systems Unremarkable General: Weakness Respiratory: Shortness of Breath Physical Examination - Vital Signs Temperature: 98.0 F Blood Pressure: 139/74 Pulse: 62 Respirations: 16 Pulse Ox (%): 95 - Physical Exam General: Alert, Oriented x3, Mild distress Respiratory: Crackles/rales Cardiovascular: No edema, Regular rate/rhythm, Normal S1 S2 - Studies Microbiology Data (last 24 hrs): 12/05/23 09:59 Nasopharnyx Influenza Type A Antigen Screen - Final 12/05/23 09:59 Nasopharnyx Influenza Type B Antigen Screen - Final Medications List Reviewed: Yes Assessment And Plan - Current Problems (Diagnosis) (1) Acute on chronic diastolic heart failure Current Visit: Yes Status: Acute Plan: Patient admitted with acute on chronic diastolic failure continue with Lasix and spironolactone echocardiogram shows grade 1 diastolic dysfunction (2) Pulmonary fibrosis Current Visit: Yes Status: Acute Plan: Dominantly upper lobe fibrosis Low-dose prednisone patient is oxygenation is satisfactory large qualify for home O2 labs chest x-rays all reviewed
--- NOTE | 2023-12-07 08:03 | P.PN ---
Subjective Date of Service: 12/07/23 Chief Complaint: Shortness of breath 88 years of age with a history of chronic pulmonary fibrosis was seen in my office complaining of worsening dyspnea noted to have decompensated heart failure, Reports shortness of breath with exertion, pulmonary following Plan to order home O2 prior to discharge Review of Systems per HPI Physical Examination - Vital Signs Temperature: 98.0 F Blood Pressure: 139/74 Pulse: 62 Respirations: 16 Pulse Ox (%): 95 - Physical Exam General: Alert, Oriented x3, Mild distress HEENT: Normocephalic, PERRLA Neck: 2+ carotid pulse no bruit Respiratory: Normal air movement, Crackles/rales Cardiovascular: Normal pulses, Regular rate/rhythm Capillary refill: <2 Seconds Gastrointestinal: Soft and benign Neurological: Normal speech, Normal strength at 5/5 x4 extr - Studies Medications List Reviewed: Yes Assessment And Plan - Plan Assessment/Plan Acute on chronic heart failure unknown baseline Acute hypoxic respiratory failure secondary to decompensated heart failure Pulmonary fibrosis Cardiology consult, telemetry, Trend troponins, trend BMP, Echo ordered Gentle diuresis, nebulizers, steroids,, Lasix, spironolactone Eval for home O2 prior to discharge Flu negative, Elevated BNP 2862 Cardiomegly History fluid on left lung Hypertensive disorder Myocardial infarction Resume appropriate home meds Full code DVT Diet cardiac Disposition Home independent prior Discharge Plan: Home Critical Care: No Time Spent Managing PTS Care (In Minutes): 35
--- NOTE | 2023-12-07 11:57 | P.PN ---
Subjective Date of Service: 12/07/23 Chief Complaint: Shortness of breath Subjective: No new changes, No C/O voiced, Tolerating diet, Ambulating, Improving Review of Systems 10-point ROS is otherwise unremarkable Physical Examination - Vital Signs Temperature: 98.0 F Blood Pressure: 139/74 Pulse: 62 Respirations: 16 Pulse Ox (%): 95 - Physical Exam General: Alert, In no apparent distress HEENT: Atraumatic, PERRLA, EOMI Neck: Supple, JVD not distended Respiratory: Clear to auscultation bilaterally, Normal air movement Cardiovascular: Regular rate/rhythm, Normal S1 S2 Gastrointestinal: Normal bowel sounds, No tenderness Musculoskeletal: No tenderness Integumentary: No rashes Neurological: Normal speech, Normal tone, Normal affect Lymphatics: No axilla or inguinal lymphadenopathy - Studies Medications List Reviewed: Yes Assessment And Plan - Current Problems (Diagnosis) (1) Acute on chronic diastolic heart failure Current Visit: Yes Status: Acute Plan: Patient got grade 2 DD, looks euvolemic on exam, diuresed well during hospital stay. continue Aldactone 25 mg BID switch Lasix to 20 mg daily on discharge. monitor input and output and electrolytes. (2) CAD (coronary artery disease) of artery bypass graft Current Visit: Yes Status: Acute Plan: history of CABG almost 15 years ago, no chest pain and troponin are negative. continue ASA 81 mg daily patient will need outpatient stress test which can be done through his outpatient sap fico architect. (3) HLD (hyperlipidemia) Current Visit: Yes Status: Acute Plan: continue lipitor 10 mg daily lipid panel in 3 months.
[2023-12-07 12:12] LABS: Absolute Lymphocytes (CBC) 0.9 K/uL (0.7-4.9); Absolute Monocytes 0.8 K/uL (0.1-1.3); Absolute Neutrophil 6.5 K/uL (1.8-8.0); Basophils % 0.3 % (0-1.3); Hematocrit 36.3 % (39.6-49.0); Lymphocytes % 11.1 % (15.3-44.8); MCH 29.8 pg (27.0-35.0); MCV 90.5 fL (80-100); MPV 7.4 fL (7.6-11.3); Neutrophils % 78.6 % (41.7-73.7); Platelets 535 thou/uL (152-406); RBC Red Blood Cell Count 4.01 M/uL (4.33-5.43); Red Cell Distribution Width 13.6 % (12.1-15.2)
--- NOTE | 2023-12-07 12:16 | EKG ---
Test Date: 2023-12-05 Test Time: 09:52:30 [employer] Teacher: GEETA MEASUREMENT RESULTS: Intervals: Rate: 77 UT: 178 QRSD: 160 QT: 466 QTc: 527 [place]: P: UT: 178 QRS: -79 T: 24 INTERPRETIVE STATEMENTS: Sinus rhythm with premature atrial complexes Right bundle branch block Left anterior fascicular block Bifascicular block Abnormal ECG Compared to ECG 12/05/2023 09:50:47 Atrial premature complex(es) now present Left anterior fascicular block now present Bifascicular block now present Ventricular premature complex(es) no longer present Left-axis deviation no longer present ST (T wave) deviation no longer present Myocardial infarct finding no longer present Electronically Signed On 12-07-23 12:14:43 CDT by Timmy Patel
--- NOTE | 2023-12-07 12:17 | EKG ---
Test Date: 2023-12-05 Test Time: 09:50:47 [employer] S[employer] Supervisor: GEETA MEASUREMENT RESULTS: Intervals: Rate: 79 PA: 178 QRSD: 168 QT: 454 QTc: 520 [place]: P: 27 PA: 178 QRS: -44 T: -5 INTERPRETIVE STATEMENTS: Sinus rhythm with frequent premature ventricular complexes Left axis deviation Right bundle branch block Abnormal ECG Compared to ECG 08/30/2023 17:49:28 Ventricular premature complex(es) now present Left-axis deviation now present ST (T wave) deviation now present Myocardial infarct finding now present Sinus bradycardia no longer present Left anterior fascicular block no longer present Bifascicular block no longer present T-wave abnormality no longer present Possible ischemia no longer present Electronically Signed On 12-07-23 12:15:16 CDT by Timmy Patel
[2023-12-07 12:21] LABS: Albumin 2.7 g/dL (3.4-5.0); Albumin/Globulin Ratio 0.6 (1.1-1.8); Alkaline Phosphatase 106 U/L (45-117); Anion Gap 11.2 mEq/L (5.0-15.0); BUN Blood Urea Nitrogen 28 mg/dL (7-18); Bicarbonate 27 mEq/L (21-32); Bilirubin Total 0.6 mg/dL (0.2-1.0); Globulin 4.2 g/dL (2.3-3.5); Glomerular Filtration Rate 72 ml/min (=/>90); Glucose Level 176 mg/dL (74-106); NT PRO-BNP 886 pg/mL (<450); Potassium 4.2 mEq/L (3.5-5.1); Protein, Total 6.9 g/dL (6.4-8.2); Sodium Level 133 mEq/L (136-145)
[2023-12-07 12:23] LABS: ALT/SGPT < 14 U/L (16-61); AST/SGOT < 10 U/L (15-37)
[2023-12-07 13:17] VITALS: BP 138/72; TEMP 98.4; O2SAT 98
--- NOTE | 2023-12-07 13:52 | P.DS ---
Admission Date: 12/05/23 Discharge Date: 12/07/23 Disposition: ROUTINE DISCHARGE Discharge Condition: GOOD Reason for Admission: Shortness of breath Brief History of Present Illness: 88 yrs old Male Cardiomegly; Fluid on left lung; Hypertensive disorder; Myocardial infarction presents to the emergency room for shortness of breath. He reports being sent over from Dr. Oswald's office for chief complaint shortness of breath over the last 2 to 3 days that is getting progressively worse. he reports lower extermity swelling. He denies chest pain, fever, NVD, He denies use of home 02. Plan to admit for - CHF exacerbation, with cardiology to consult. treated with : Furosemide IVP 40 mg IVP once; BP 150 / 83; Pulse 72; Resp 36; Pulse Ox 100% on 2 lpm NC; EKG normal sinus rhythm at 77 bpm with normal intervals except for QTc of 527 and right bundle branch block and nonspecific diffuse ST's ST changes without evidence of acut ischemia.Lab BNP 2862, troponin 11.6, HH 11.3/33.5, plts 468, CXR FINDINGS: Moderate bilateral in terstitial predominantly upper lobe opacities without significant change. No acute abnormality is displayed Heart is mildly enlarged. Postsurgical changes involve chest. IMPRESSION: No acute abnormalities displayed - Physical Exam General: Alert, In no apparent distress, Oriented x3 HEENT: Atraumatic, Normocephalic Neck: Supple, 2+ carotid pulse no bruit Respiratory: Normal air movement, Crackles/rales Cardiovascular: Normal pulses, Regular rate/rhythm, Capillary refill: <2 Seconds Gastrointestinal: Normal bowel sounds, Soft and benign Musculoskeletal: No clubbing, No swelling Integumentary: No breakdown, No significant lesion Neurological: Normal speech, Normal strength at 5/5 x4 extr Hospital Course: 88 yrs old Male Cardiomegly; Fluid on left lung; Hypertensive disorder; Myocardial infarction presents to the emergency room for shortness of breath. He reports being sent over from Dr. Oswald's office for chief complaint shortness of breath over the last 2 to 3 days that is getting progressively worse. He reported lower extremity edema, he was evaluated by cardiology known to have elevated BNP, acute on chronic heart failure, followed by Dr. Romero, history of pulmonary fibrosis. Treated with gentle diuresis, plan to discharge home, follow-up with pulmonary, follow-up with cardiology after discharge. Patient will need outpatient stress testing by cardiology. Assessment Acute on chronic heart failure evaluated by cardiology, treated with diuresis History of pulmonary fibrosis was evaluated by pulmonary while inpatient. Discharge home medications Aldactone 25 mg 1 p.o. twice daily Lasix 20 mg daily Aspirin 81 mg daily Will need outpatient cardiac stress testing after discharge Continue home medicines as previously prescribed GOAL: Clear understanding of disease process INSTRUCTIONS: Physician Discharge Instructions: -Follow-up with PCP in 1 to 2 weeks -Please call Dr. Singh at [phone] if any questions regarding hospital stay -Please call nursing station at [phone] if any nursing or medication questions -Return to the emergency room if symptoms worsen Diet: ADA, low sodium Activity: Fall precautions Vital Signs/Physical Exam: Temp Pulse Resp BP Pulse Ox 98.4 F 79 20 138/72 98 12/07/23 12:00 12/07/23 12:00 12/07/23 12:00 12/07/23 12:00 12/07/23 12:00 Laboratory Data at Discharge: WBC 8.20 thou/uL (4.3-10.9) 12/07/23 11:36 Hgb 12.0 g/dL (13.6-17.9) L 12/07/23 11:36 Hct 36.3 % (39.6-49.0) L 12/07/23 11:36 Plt Count 535 thou/uL (152-406) H 12/07/23 11:36 PT 12.8 SECONDS (9.5-12.5) H 12/05/23 10:10 INR 1.17 12/05/23 10:10 Sodium 133 mEq/L (136-145) L 12/07/23 11:36 Potassium 4.2 mEq/L (3.5-5.1) 12/07/23 11:36 BUN 28 mg/dL (7-18) H 12/07/23 11:36 Creatinine 1.01 mg/dL (0.70-1.30) 12/07/23 11:36 Glucose 176 mg/dL (74-106) H 12/07/23 11:36 Magnesium 1.7 mg/dL (1.6-2.4) 12/05/23 10:10 Total Bilirubin 0.6 mg/dL (0.2-1.0) 12/07/23 11:36 AST < 10 U/L (15-37) L 12/07/23 11:36 ALT < 14 U/L (16-61) L 12/07/23 11:36 Alkaline Phosphatase 106 U/L (45-117) 12/07/23 11:36 Home Medications: Pantoprazole [Protonix Tab*] 40 mg PO DAILY #30 tab 07/21/18 Ascorbic Acid [Vitamin C*] 500 mg PO DAILY 10/06/22 Aspirin Chewable [Aspirin Chewable*] 81 mg PO DAILY 10/06/22 Atorvastatin Calcium [Lipitor*] 10 mg PO BEDTIME 10/06/22 Clopidogrel Bisulfate [Plavix*] 75 mg PO BEDTIME 10/06/22 Cyanocobalamin [Vitamin B-12*] 1,000 mcg PO DAILY 10/06/22 Losartan Potassium 25 mg PO DAILY 10/06/22 Melatonin/Pyridoxine [Melatonin 5 mg Tablet] 5 mg PO BEDTIME 10/06/22 Multivit,Ther Iron,Ca,FA & Min [Centrum Tablet*] 1 tab PO DAILY 10/06/22 Finasteride [Proscar] 5 mg PO DAILY 08/23/23 Spironolactone 25 mg PO BEDTIME 08/23/23 Tamsulosin HCl [Flomax] 0.4 mg PO BEDTIME 08/23/23 carvediloL [Carvedilol] 3.125 mg PO BID 08/23/23 Furosemide [Lasix*] 20 mg PO DAILY #30 tab 08/25/23 Ensure Enlive 237 ml PO TIDWM can 09/11/23 predniSONE [Deltasone*] 10 mg PO DAILY 12/06/23 Diet: AHA Activity: Fall precautions Followup: Radha Adams MD [Primary Care Provider] - Time spent managing pt's care (in minutes): 55
== END 2023-12-07 15:17 | disposition home or self-care (01) | DRG 280 ==
LOC: ER 09:33 → ERHOLD 11:21 → 2ND 11:33
PROVIDERS: ADMIT Hospitalist; ATTEND Hospitalist
PROC: 4A033R1 Measurement of Arterial Saturation, Peripheral, Percutaneous Approach (ICD-10-PCS; principal; 2023-12-05)
DX: I11.0 Hypertensive heart disease with heart failure (principal); I50.33 Acute on chronic diastolic (congestive) heart failure; I21.9 Acute myocardial infarction, unspecified; J96.01 Acute respiratory failure with hypoxia; E78.5 Hyperlipidemia, unspecified; D64.9 Anemia, unspecified; J84.10 Pulmonary fibrosis, unspecified; K21.9 Gastro-esophageal reflux disease without esophagitis; I25.10 Atherosclerotic heart disease of native coronary artery without angina pectoris; I25.2 Old myocardial infarction; Z60.2 Problems related to living alone; Z95.1 Presence of aortocoronary bypass graft; Z79.82 Long term (current) use of aspirin; Z11.52 Encounter for screening for COVID-19; Z79.52 Long term (current) use of systemic steroids; Z79.02 Long term (current) use of antithrombotics/antiplatelets; Z96.641 Presence of right artificial hip joint; Z96.652 Presence of left artificial knee joint; Z79.899 Other long term (current) drug therapy
CPT/HCPCS: 36415; 36600; 71045; 80048; 80053; 80076; 81001; 82805; 83605; 83735; 83880; 84484; 85025; 85610; 87040; 87804; 87811; 93005; 93306; 94760; 96374; 99285; J1940; J7050; J7512

== ENCOUNTER 2024-02-18 17:33 | Emergency (ER) | payer OTHER ==
[2024-02-18] MEDS ORDERED: ONDANSETRON 4 MG/2 ML VIAL ONE ×3 (18:48→23:50)
[2024-02-18] MEDS ORDERED: NA CHLORIDE 0.9% 250 ML ONE (18:48)
--- NOTE | 2024-02-18 19:00 | RAD REPORT ---
EXAM DESCRIPTION: RADChest Single View02/18/2024 6:27 pm CLINICAL HISTORY: DYSPNEA COMPARISON: Chest Single View dated 12/05/2023; Chest Single View dated 08/30/2023; Chest Single View d ated 08/25/2023; Chest Single View dated 4Chest Single View dated 12/05/2023; Chest Single View dated 08/30/2023; Chest Single View dated 08/25/2023; Chest Single View dated 08/24/2023 TECHNIQUE: Portable AP view of the chest. FINDINGS: Upper lobe and peripheral predominant patchy airspace opacities with a reticular pattern, worse on the left, stable. No new focal consolidation. No pneumothorax or effusion. The cardiomedias tinal contours are unchanged with sequelae of CABG. IMPRESSION: Stable upper lobe predominant airspace opacities as above, suggesting chronic interstiti al lung disease.
[2024-02-18 19:06] LABS: Absolute Lymphocytes (CBC) 0.6 K/uL (0.7-4.9); Absolute Monocytes 0.5 K/uL (0.1-1.3); Basophils % 0.5 % (0-1.3); Eosinophils % 0.1 % (0-4.4); Hematocrit 40.2 % (39.6-49.0); Hemoglobin 13.4 g/dL (13.6-17.9); Lymphocytes % 8.3 % (15.3-44.8); MCH 29.6 pg (27.0-35.0); MCHC 33.3 g/dL (32.0-36.0); MCV 88.8 fL (80-100); MPV 7.6 fL (7.6-11.3); Monocytes % 6.9 % (3.3-12.3); Neutrophils % 84.2 % (41.7-73.7); Nucleated Red Blood Cells % 0.1 % (0-0); Platelets 323 thou/uL (152-406); RBC Red Blood Cell Count 4.53 M/uL (4.33-5.43)
[2024-02-18 19:21] LABS: Albumin 3.4 g/dL (3.4-5.0); Albumin/Globulin Ratio 0.8 (1.1-1.8); Anion Gap 10.2 mEq/L (5.0-15.0); Bilirubin Total 1.1 mg/dL (0.2-1.0); Globulin 4.5 g/dL (2.3-3.5); Protein, Total 7.9 g/dL (6.4-8.2)
[2024-02-18 19:40] LABS: Potassium 4.2 mEq/L (3.5-5.1)
[2024-02-18] MEDS ORDERED: MORPHINE 2 MG/ML SYR ONE ×2 (20:24→23:45)
--- NOTE | 2024-02-18 21:43 | RAD REPORT ---
EXAM DESCRIPTION: CT - Abdomen Pelvis W Contrast - 02/18/2024 8:08 pm CLINICAL HISTORY: ABD PAIN COMPARISON: Abdomen Pelvis W Contrast dated 08/30/2023; Abdomen Pelvis W Contrast dated 10/06/2022; Abdomen Pelvis W Contrast dated 07/19/2018 TECHNIQUE: Thin cut axial CT imaging of the abdomen and pelvis was performed following intravenous a dministration of iodinated contrast. Multiplanar reformats were generated and reviewed. All CT scans are performed using dose optimization technique as appropriate and may include automated exposure control or mA/KV adjustment according to patient size. FINDINGS: Reticular and ground-glass opacities in the left lower lobe, progressive since the prior e xam. The liver, spleen, adrenal glands, and pancreas show no suspicious findings. Gallbladder and biliary tree are also without suspicious finding. Symmetric renal function is seen with no hydronephrosis or suspicious renal mass. Dilated fluid-filled stomach and duodenum. Abrupt transition point along the third part of the duoden um, where a whorl of vascular structures is seen at the mesenteric root. Mild sigmoid diverticulosis. No free air, free fluid or inflammatory stranding. No hernia, mass or bulky lymphadenopathy. The uri nary bladder is without significant finding. Progressive superior endplate compression deformity at T10. Advanced multilevel degenerative changes with grade 1 spondylolisthesis at L3-L4, stable. IMPRESSION: Marked fluid distention of the stomach and proximal duodenum, with an abrupt transition point at the level of the third part of the duodenum. A whorl of vascular structures is seen at that level, which may relate to an internal hernia or volvulus pathology. Reticular and ground-glass opacities in the left lower lobe are progressive since the prior exam, con cerning for infectious or inflammatory process. The findings were communicated to Aric Farley on 02/18/2024 at 21:37 hours.
--- NOTE | 2024-02-18 23:44 | EDPHYS ---
Physician Documentation [facility] Name: Bereket Kennedy Age: 89 yrs Sex: Male : 1935 Arrival Date: 02/18/2024 Time: 17:33 Bed 17 Private MD: ED Physician Hermelinda Valadez HPI: 02/17 18:05 This 89 yrs old Male presents to ER via Unassigned with complaints of Abdominal Pain, kb Vomiting, Cough. 18:05 Pt is a 89 year old male who presents for weakness, abd pain, nausea and vomiting that kb started this morning. Denies fever. DIL states pt has had bowel obstructions in the past and this is similar to those events. Last BM was this morning. . Historical: - Allergies: 18:07 No Known Allergies; aa5 - Home Meds: 18:10 solifenacin 5 mg oral tablet [Active]; finasteride 5 mg oral tablet [Active]; aa5 pantoprazole 40 mg oral tablet, delayed release (enteric coated) [Active]; clopidogrel 75 mg Oral tablet [Active]; losartan 25 mg oral tablet [Active]; spironolactone 25 mg Oral tablet [Active]; carvedilol 3.125 mg oral tablet [Active]; Folic Acid Oral [Active]; tamsulosin 0.4 mg oral capsule [Active]; atorvastatin 10 mg oral tablet [Active]; - PMHx: 18:06 Hypertensive disorder; Myocardial infarction; Fluid on left lung (Unknown); aa5 Cardiomegaly (Unknown); - PSHx: 18:06 cardiac bypass; esophageal sx; aa5 - Immunization history:: Adult Immunizations unknown. - Infectious Disease History:: Denies. - Social history:: Smoking status: Patient denies any tobacco usage or history of. ROS: 18:05 Constitutional: As per HPI kb Exam: 18:05 Constitutional: This is a well developed, well nourished patient who is awake, alert, kb and in no acute distress. Head/Face: Normocephalic, atraumatic. ENT: Moist Mucous membranes Cardiovascular: Regular rate Respiratory: Respirations even and unlabored. No increased work of breathing. Talking in full sentences Skin: Warm, dry with normal turgor. Normal color. MS/ Extremity: Pulses equal, no cyanosis. Neurovascular intact. Full, normal range of motion. Neuro: Awake and alert, GCS 15, oriented to person, place, time, and situation. Moves all extremities. Normal gait. 18:05 Abdomen/GI: Inspection: abdomen appears normal, Bowel sounds: normal, Palpation: soft, in all quadrants, moderate abdominal tenderness, in all quadrants, Vital Signs: 18:05 BP 136 / 77; Pulse 92; Resp 18 S; Temp 97.2(TE); Pulse Ox 95% on R/A; Weight 54.43 kg aa5 (R); Height 5 ft. 9 in. (R); 18:36 BP 160 / 89; Pulse 84; Resp 16; Pulse Ox 97% on R/A; me1 19:30 BP 124 / 71; Pulse 82; Resp 18; Pulse Ox 96% on R/A; me1 20:16 BP 153 / 80; Pulse 85; Resp 16; Pulse Ox 88% on R/A; me1 20:17 BP 153 / 80; Pulse 81; Resp 17; Pulse Ox 97% on 2 lpm NC; me1 21:00 BP 159 / 87; Pulse 84; Resp 16; Pulse Ox 97% on 2 lpm NC; me1 22:00 BP 160 / 87; Pulse 80; Resp 16; Pulse Ox 99% on 2 lpm NC; me1 23:00 BP 161 / 83; Pulse 73; Resp 16; Pulse Ox 100% on 2 lpm NC; me1 02/18 00:01 BP 137 / 74; Pulse 81; Resp 16; Pulse Ox 97% on 2 lpm NC; me1 01:00 BP 150 / 85; Pulse 86; Resp 16; Pulse Ox 95% on 2 lpm NC; pc2 02/17 18:05 Body Mass Index 17.72 (54.43 kg, 175.26 cm) aa5 MDM: 02/17 18:05 Patient medically screened. kb 21:56 Differential diagnosis: bowel obstruction, gastroenteritis. Consideration of kb Admission/Observation Escalation of care including admission/observation considered. pt will be transferred for higher level of care. Management of patient was discussed with the following: Caretaker: Dr Posadas consulted to continuity of care. Recommends transfer for higher level of care due to previous Whipple procedure. Historians other than the Patient: Daughter/Son: daughter in law. Counseling: I had a detailed discussion with the patient and/or guardian regarding the historical points, exam findings, and any diagnostic results supporting the discharge/admit diagnosis, lab results, radiology results, the need to transfer to another facility, [facility] does not immediately have the required specialist. 23:06 Data reviewed: vital signs, nurses notes. kb 23:40 Management of patient was discussed with the following: Dr Petty, general surgeon at [facility], accepts pt for consult. Would like pt admitted to hospitalist. Awaiting callback. 23:55 Management of patient was discussed with the following: Dr Saenz, hospitalist at [facility] accepts pt for transfer. Requests NG tube be placed. 02/17 18:07 Order name: CBC with Diff; Complete Time: 19:12 kb 02/17 18:07 Order name: CMP; Complete Time: 19:41 kb 02/17 18:07 Order name: Lipase; Complete Time: 19:41 kb 02/17 21:40 Order name: Lactate w/ 2H reflex if indic.; Complete Time: 22:51 kb 02/17 18:07 Order name: CT Abd/Pelvis - IV Contrast Only; Complete Time: 21:44 kb 02/17 18:07 Order name: Chest Single View XRAY; Complete Time: 19:00 kb 02/17 18:07 Order name: IV Saline Lock; Complete Time: 18:46 kb 02/17 18:07 Order name: Labs collected and sent; Complete Time: 18:46 kb 02/17 23:54 Order name: NG Tube kb Administered Medications: 18:54 Drug: Ondansetron IVP 4 mg IVP once; over 2 minutes Route: IVP; Site: right forearm; me1 20:27 Follow up: Response: No adverse reaction; Nausea is decreased me1 18:54 Drug: NS 0.9% IV 250 ml IV at calculated rate once Route: IV; Rate: calculated rate; me1 Site: right antecubital; 19:30 Follow up: Response: No adverse reaction; IV Status: Completed infusion; IV Intake: me1 250ml 19:50 Drug: Ondansetron IVP 4 mg IVP once; over 2 minutes Route: IVP; Site: right forearm; me1 20:27 Follow up: Response: No adverse reaction; Nausea is decreased me1 20:30 Drug: morphine IVP or IV 2 mg IVP once over 4 mins Route: IVP; Infused Over: 4 mins; me1 Site: right forearm; 20:35 Follow up: Response: No adverse reaction me1 20:35 Follow up: Response: Pain is decreased me1 23:50 Drug: morphine IVP or IV 2 mg IVP once over 4 mins Route: IVP; Infused Over: 4 mins; me1 Site: right antecubital; 23:51 Follow up: Response: No adverse reaction; Pain is decreased me1 23:55 Drug: Ondansetron IVP 4 mg IVP once; over 2 minutes Route: IVP; Site: right antecubital;me1 02/18 00:00 Follow up: Response: No adverse reaction; Nausea is decreased me1 Disposition Summary: 02/18/24 23:43 Transfer Ordered Notes: Transfer Location: [facility] kb Reason: Higher level of care kb Condition: Stable kb Problem: new kb Symptoms: are unchanged kb Accepting Physician: Dr Saenz(02/19/24 01:43) pc2 Diagnosis - Internal hernia vs volvulus kb - Upper abdominal pain, unspecified kb Forms: - Medication Reconciliation Form kb - SBAR form kb Signatures: Dispatcher [employer] EDRenetta Lindquist, GERMAN-C NATURAL GAS FIELD PROCESSING SUPERVISOR-Kalani Bautista RN RN aa5 Netta Bridges RN RN me1 Monik Preston, RN RN pc2 Corrections: (The following items were deleted from the chart) 02/17 18:06 18:06 PMHx: Cardiomegly; aa5 aa 18:06 18:06 PMHx: Fluid on left [place]; [facility] 18:15 18:05 Pt is a 89 year old male who presents for abd pain, nausea and vomiting that kb started this morning. Denies fever. DIL states pt has had bowel obstructions in the past and this is similar to those events. Last BM was this morning. . talisha 23:56 23:43 Dr talisha woodall 02/18 01:43 02/17 23:56 Dr Dany woodall pc2
--- NOTE | 2024-02-18 23:44 | ER ---
Nurse's Notes [facility] Name: Bereket Kennedy Age: 89 yrs Sex: Male : 1935 Arrival Date: 02/18/2024 Time: 17:33 Bed 17 Private MD: Diagnosis: Internal hernia vs volvulus;Upper abdominal pain, unspecified Presentation: 02/17 18:05 Chief complaint: [id number] reports abd pain, nausea/vomiting today. Also reports aa5 generalized weakness. 18:05 Method Of Arrival: Wheelchair aa5 18:05 Coronavirus screen: vomiting. Ebola Screen: Patient denies travel to an Ebola-affected [facility] area in the 21 days before illness onset. Initial Sepsis Screen: Does the patient meet any 2 criteria? HR > 90 bpm. Does the patient have a suspected source of infection? No. Patient's initial sepsis screen is negative. Risk Assessment: Do you want to hurt yourself or someone else? Patient reports no desire to harm self or others. Onset of symptoms was February 18, 2024. 18:05 Acuity: CARMELINA 3 aa5 Historical: - Allergies: 18:07 No Known Allergies; aa5 - Home Meds: 18:10 solifenacin 5 mg oral tablet [Active]; finasteride 5 mg oral tablet [Active]; aa5 pantoprazole 40 mg oral tablet, delayed release (enteric coated) [Active]; clopidogrel 75 mg Oral tablet [Active]; losartan 25 mg oral tablet [Active]; spironolactone 25 mg Oral tablet [Active]; carvedilol 3.125 mg oral tablet [Active]; Folic Acid Oral [Active]; tamsulosin 0.4 mg oral capsule [Active]; atorvastatin 10 mg oral tablet [Active]; - PMHx: 18:06 Hypertensive disorder; Myocardial infarction; Fluid on left lung (Unknown); aa5 Cardiomegaly (Unknown); - PSHx: 18:06 cardiac bypass; esophageal sx; aa5 - Immunization history:: Adult Immunizations unknown. - Infectious Disease History:: Denies. - Social history:: Smoking status: Patient denies any tobacco usage or history of. Screenin:05 [facility] ED Fall Risk Assessment (Adult) History of falling in the last 3 months, me1 including since admission No falls in past 3 months (0 pts) Confusion or Disorientation No (0 pts) Intoxicated or Sedated No (0 pts) Impaired Gait Yes (1 pt) Mobility Assist Device Used Yes (1 pt) Altered Elimination No (0 pt) Score/Fall Risk Level 0 - 2 = Low Risk Maintained a safe environment, Provided non-skid footwear, Hourly rounding (assess needs \T\ fall precautionary measures) done. Abuse screen: Denies threats or abuse. Nutritional screening: No deficits noted. Tuberculosis screening: No symptoms or risk factors identified. Assessment: 18:05 General: Appears uncomfortable, ill, well groomed, well developed, well nourished, me1 Behavior is calm, cooperative, appropriate for age, Reports n/v, abdominal pain that started today. Pain: Complains of pain in abdomen Pain does not radiate. Pain currently is 7 out of 10 on a pain scale. Quality of pain is described as crampy, sharp, Pain began suddenly, Is continuous. Neuro: Level of Consciousness is awake, alert, obeys commands, Oriented to person, place, time, situation, Appropriate for age. Cardiovascular: Patient's skin is warm and dry. Respiratory: Airway is patent Trachea midline Respiratory effort is even, unlabored, Respiratory pattern is regular, symmetrical. GI: Abdomen is flat, Bowel sounds diminished in right upper quadrant and left upper quadrant Abdomen is tender to palpation X 4 quads. : No signs and/or symptoms were reported regarding the genitourinary system. EENT: No signs and/or symptoms were reported regarding the EENT system. Derm: Skin is intact, is healthy with good turgor, Skin is pink, warm \T\ dry. Musculoskeletal: No signs and/or symptoms reported regarding the musculoskeletal system. 02/18 00:48 General: Report called to ITA Fink at [facility]. me1 Vital Signs: 02/17 18:05 BP 136 / 77; Pulse 92; Resp 18 S; Temp 97.2(TE); Pulse Ox 95% on R/A; Weight 54.43 kg aa5 (R); Height 5 ft. 9 in. (R); 18:36 BP 160 / 89; Pulse 84; Resp 16; Pulse Ox 97% on R/A; me1 19:30 BP 124 / 71; Pulse 82; Resp 18; Pulse Ox 96% on R/A; me1 20:16 BP 153 / 80; Pulse 85; Resp 16; Pulse Ox 88% on R/A; me1 20:17 BP 153 / 80; Pulse 81; Resp 17; Pulse Ox 97% on 2 lpm NC; me1 21:00 BP 159 / 87; Pulse 84; Resp 16; Pulse Ox 97% on 2 lpm NC; me1 22:00 BP 160 / 87; Pulse 80; Resp 16; Pulse Ox 99% on 2 lpm NC; me1 23:00 BP 161 / 83; Pulse 73; Resp 16; Pulse Ox 100% on 2 lpm NC; me1 02/18 00:01 BP 137 / 74; Pulse 81; Resp 16; Pulse Ox 97% on 2 lpm NC; me1 01:00 BP 150 / 85; Pulse 86; Resp 16; Pulse Ox 95% on 2 lpm NC; pc2 02/17 18:05 Body Mass Index 17.72 (54.43 kg, 175.26 cm) aa5 ED Course: 02/17 17:38 Patient arrived in ED. mr 18:04 Renetta Rubi FNP-C is PHCP. kb 18:04 Hermelinda Valadez MD is Attending Physician. kb 18:05 Arm band placed on. aa5 18:05 Patient has correct armband on for positive identification. Bed in low position. Call pa1 light in reach. Side rails up X2. Provided Education on: POC. Verbalized understanding. . Client placed on continuous cardiac and pulse oximetry monitoring. NIBP monitoring applied. Pulse ox on. NIBP on. 18:05 No provider procedures requiring assistance completed. me1 18:09 Triage completed. aa5 18:29 Chest Single View XRAY In Process Unspecified. EDMS 18:32 Netta Bridges, RN is Primary Nurse. me1 18:46 CBC with Diff Sent. me1 18:46 CMP Sent. me1 18:46 Lipase Sent. me1 18:46 Initial lab(s) drawn, by me, sent to lab. Inserted saline lock: 22 gauge in right me1 forearm, using aseptic technique. 20:09 CT Abd/Pelvis - IV Contrast Only In Process Unspecified. EDMS 22:21 Lactate w/ 2H reflex if indic. Sent. ty 22:22 Initial lab(s) drawn, by me, sent to lab. ty 02/18 00:29 02/18/24 [id number] called [facility] for transfer talked to Alison. [id number] Dr. Abiola Gates sp accepted pt. 02/19/24 0003 Alison Gray RN TC admin approval to [facility]. 16 [place] bed 1630 report number [phone] fax [phone]. 01:00 called [place] for transport talked to Shelly. carcamo 01:31 Patient transferred, IV remains in place. pc2 Administered Medications: 02/17 18:54 Drug: Ondansetron IVP 4 mg IVP once; over 2 minutes Route: IVP; Site: right forearm; me1 20:27 Follow up: Response: No adverse reaction; Nausea is decreased me1 18:54 Drug: NS 0.9% IV 250 ml IV at calculated rate once Route: IV; Rate: calculated rate; me1 Site: right antecubital; 19:30 Follow up: Response: No adverse reaction; IV Status: Completed infusion; IV Intake: me1 250ml 19:50 Drug: Ondansetron IVP 4 mg IVP once; over 2 minutes Route: IVP; Site: right forearm; me1 20:27 Follow up: Response: No adverse reaction; Nausea is decreased me1 20:30 Drug: morphine IVP or IV 2 mg IVP once over 4 mins Route: IVP; Infused Over: 4 mins; me1 Site: right forearm; 20:35 Follow up: Response: No adverse reaction me1 20:35 Follow up: Response: Pain is decreased me1 23:50 Drug: morphine IVP or IV 2 mg IVP once over 4 mins Route: IVP; Infused Over: 4 mins; me1 Site: right antecubital; 23:51 Follow up: Response: No adverse reaction; Pain is decreased me1 23:55 Drug: Ondansetron IVP 4 mg IVP once; over 2 minutes Route: IVP; Site: right antecubital;me1 02/18 00:00 Follow up: Response: No adverse reaction; Nausea is decreased me1 Medication: 02/17 18:05 VIS not applicable for this client. me1 Intake: 19:30 IV: 250ml; Total: 250ml. me1 Outcome: 23:43 ER care complete, transfer ordered by MD. woodall 02/18 01:30 Transferred by [facility] [place]. to [facility], [facility], Transfer form pc2 completed. Condition: stable Instructed on the need for transfer, Demonstrated understanding of instructions, 01:43 Patient left the ED. pc2 Signatures: Dispatcher [employer] EDRenetta Lindquist, MISSION SYSTEMS ENGINEER-C MISSION SYSTEMS ENGINEER-Ckb Cydney Begum, Arminda, Reg Reg mr Kalani Ambrose, RN RN aa5 Netta Bridges RN RN pa1 Tony Miranda Pam, RN RN pc2 Corrections: (The following items were deleted from the chart) 02/17 18:06 18:06 PMHx: Cardiomegly; aa5 5 18: 18:06 PMHx: Fluid on left [place]; aa5 5 02/18 00:48 02/17 21:00 BP 159 / 87; Pulse 84bpm; Resp 16bpm; Pulse Ox 97% RA; [place] [id number] 02/18 00:48 02/17 22:00 BP 160 / 87; Pulse 80bpm; Resp 16bpm; Pulse Ox 99% RA; [place] [id number] 02/18 00:48 02/17 23:00 BP 161 / 83; Pulse 73bpm; Resp 16bpm; Pulse Ox 100% RA; [place] [id number] 02/18 00:48 00:01 BP 137 / 74; Pulse 81bpm; Resp 16bpm; Pulse Ox 97% RA; [place] [id number]
[2024-02-19 02:42] VITALS: TEMP 97.2
[2024-02-19 03:00] VITALS: BP 150/85; O2SAT 95
== END 2024-02-19 01:43 | disposition short-term general hospital (02) ==
LOC: ER 17:33
DX: R10.10 Upper abdominal pain, unspecified (principal); K46.9 Unspecified abdominal hernia without obstruction or gangrene; K56.2 Volvulus; I10 Essential (primary) hypertension; Z95.1 Presence of aortocoronary bypass graft
CPT/HCPCS: 85025; 36415; 83605; 83690; 80053; 74177; 71045; Q9967; J2270 ×2; J2405 ×3; J7050; 99285